=== PATIENT | female | born 1960 | race Caucasian/White ===

== ENCOUNTER 2019-01-25 17:10 | Emergency (ER) | payer MEDICAID, OTHER ==
[~2019-01-25] VITALS: Ht 149.9 cm; Wt 68.0 kg
--- OUTSIDE RECORDS SUMMARY | 2019-01-25 17:17 | XMS REPORT | Continuity of Care Document ---
Author Organization Unknown Address Unknown Allergies Active Description Code Type Severity Reaction Onset Reported/Identified Relationship to Patient Clinical Status Yes CODEINE SULFATE UNKNOWN ITCHING Medications Medication Packaging Start Date Stop Date Route Dosage Sig HYDROCODONE/APAP 5MG/325MG TAB 5 MG/325MG (MARIAA-TAB 5/325) TAB 07/21/2017 07/31/2017 PRN BID ACETAMINOPHEN ORAL TABLET 325mg(Tylenol) MG 07/21/2017 07/28/2017 PRN EVERY 6 Hour IBUPROFEN TAB 400 MG (MOTRIN) MG 07/28/2017 PRN Q6H ALUM/MAG/SIMETH 30CC LIQ (MYLANTA PLUS) cc 07/21/2017 07/31/2017 PRN Q4H POLYETHYLENE GLYCOL POWDER UD PWD (MIRALAX 17GM UNIT DOSE PAKS) gm 07/21/2017 07/31/2017 PRN Q3H CALMOSEPTINE OINT TUBE (RISAMINE OINT) keyla 07/21/2017 07/28/2017 PRN QID LOPERAMIDE CAP 2 MG (IMMODIUM) MG 07/21/2017 07/28/2017 PRN QID Fluarix QUAD 3695-2137 (PF) (flu vac 36mos up(PF)Adult IM syringe ML 07/21/2017 07/21/2017 ONCE&1800 GABAPENTIN CAP 100 MG (NEURONTIN) MG 07/21/2017 08/20/2017 TID&0800,1200,1400,2000 LACTULOSE SYRUP LIQ 20 GM/30CC (CHRONULAC SYRUP) GM 07/21/2017 07/31/2017 BID&0800,2000 MILK OF MAGNESIA LIQ ml 07/21/2017 07/28/2017 PRN BID MELATONIN TAB 3 MG (MELATONIN) MG 07/21/2017 07/27/2017 QHS&2100 ROPINIROLE TAB 1 MG (REQUIP) MG 08/19/2017 QHS&2100 MIRTAZAPINE TAB 15 MG (REMERON) MG 07/21/2017 08/19/2017 QHS&2100 PANTOPRAZOLE TAB 40 MG (PROTONIX) MG 07/22/2017 08/20/2017 Daily&0900 ASCORBIC ACID TAB 500 MG (VITAMIN C) MG 07/22/2017 08/20/2017 Daily&0900 ATENOLOL TAB 50 MG (TENORMIN) MG 08/20/2017 Daily&0900 BISACODYL SUPPOS SUP 10 MG (DULCOLAX SUPPOS) MG 07/22/2017 07/28/2017 PRN Daily ESTRADIOL TAB 2 MG (ESTRACE) MG 08/11/2017 Daily&0900 MULTIVITAMIN CHEWS TAB (POLY VITAMIN CHEWS) tab 07/22/2017 08/20/2017 Daily&0900 DESVENLAFAXINE TAB 50 MG (PRISTIQ) MG 07/22/2017 08/20/2017 Daily&0900 IBUPROFEN TAB 400 MG (MOTRIN) MG 08/21/2017 PRN Q6H CHOLESTYRAMINE PKT 4 GM (QUESTRAN ELIZABETH) GM 07/23/2017 07/30/2017 TID&0730,1130,1630 LOPERAMIDE CAP 2 MG (IMMODIUM) MG 07/24/2017 08/23/2017 PRN Q3H Problems Date Dx Coded Attending Type Code Diagnosis Diagnosed By 07/25/2017 LILY ZAVALA 272.4 OTHER AND UNSPECIFIED HYPERLIPIDEMIA 07/25/2017 LILY ZAVALA 296.34 MAJOR DEPRESSIVE DISORDER, RECURRENT EPISODE, SEVERE DEGREE, SPECIFIED WITH PSYCHOTIC BEHAVIOR 07/25/2017 LILY ZAVALA 530.81 07/25/2017 LILY ZAVALA 564.1 07/25/2017 LILY ZAVALA 592.0 CALCULUS OF KIDNEY 07/25/2017 LILY ZAVALA 737.39 OTHER KYPHOSCOLIOSIS AND SCOLIOSIS 07/25/2017 LILY ZAVALA B00.89 OTHER HERPESVIRAL INFECTION 07/25/2017 LILY ZAVALA E78.5 HYPERLIPIDEMIA, UNSPECIFIED 07/25/2017 LILY ZAVALA F33.3 MAJOR DEPRESSV DISORDER, RECURRENT, SEVERE W PSYCH SYMPTOMS 07/25/2017 LILY ZAVALA K21.9 GASTRO-ESOPHAGEAL REFLUX DISEASE WITHOUT ESOPHAGITIS 07/25/2017 LILY ZAVALA K58.0 IRRITABLE BOWEL SYNDROME WITH DIARRHEA 07/25/2017 LILY ZAVALA M41.9 SCOLIOSIS, UNSPECIFIED 07/25/2017 LILY ZAVALA N20.0 CALCULUS OF KIDNEY 07/25/2017 LILY ZAVALA R45.851 SUICIDAL IDEATIONS 07/25/2017 LILY ZAVALA V62.84 10/02/2017 KANE ALMAGUER MD F33.2 Major depressv disorder, recurrent severe w/o psych features 10/02/2017 KANE ALMAGUER MD G25.81 Restless legs syndrome 10/02/2017 KANE ALMAGUER MD I10 Essential (primary) hypertension 10/02/2017 KANE ALMAGUER MD K21.9 Gastro-esophageal reflux disease without esophagitis Procedures There is no data. Results Test Result Range Vitamin D, 25 OH - 07/21/17 19:47 Vitamin D, 25 OH 27.70 ng/mL 25.00-100.00 VIT B-12 - 07/21/17 19:47 Vitamin B12 274.00 pg/mL 213.00-816.00 Free T4 - 07/21/17 19:47 Free T4 1.04 ng/dL 0.81-1.61 Lipid Panel - 07/22/17 05:05 C/HDL 8.5 3.7-6.7 Cholesterol 288 mg/dL 100-240 HDL 34 mg/dL 30-85 LDL-Calculated 213 mg/dL 0-100 Trig 204 mg/dL 35-160 VLDL 41 mg/dL 0-42 Encounters ACCT No. Visit Date/Time Discharge Status Pt. Type Provider Facility Loc./Unit Complaint [id number] 09/29/2017 23:45:00 10/02/2017 12:00:00 DIS Inpatient KANE ALMAGUER MD [facility] [id number] 11/24/2018 14:40:00 11/24/2018 23:59:59 CLS Outpatient [facility] [id number] 07/21/2017 12:13:00 07/25/2017 14:42:00 DIS Inpatient LUCASLILY [facility] YARON [id number] 07/21/2017 13:02:08 Document Registration [id number] 12/05/2018 20:03:06 ACT Unknown
[2019-01-25] MEDS ORDERED: DULO30CA48 (17:29)
[2019-01-25] MEDS ORDERED: ACYC400T (17:29)
[2019-01-25] MEDS ORDERED: ATEN25TA (17:29)
[2019-01-25] MEDS ORDERED: PANT40TA3 (17:29)
[2019-01-25] MEDS ORDERED: ESTR0.3T (17:29)
[2019-01-25] MEDS ORDERED: DIAZEPAM INJ 10 MG/2 ML (VALIUM) SYR IV ONE (17:30)
[2019-01-25] MEDS ORDERED: KETOROLAC 30 MG/ML VIAL IVP ONE (17:30)
[2019-01-25] MEDS ORDERED: DIAZEPAM 5 MG (VALIUM) TABLET ONE (17:31)
--- NOTE | 2019-01-25 17:35 | ED Back Pain ---
General Chief Complaint: Back Problems Stated Complaint: LOWER BACK PAIN/SHOULDER PAIN Nursing Triage Note: ARRIVED VIA AMB TO ROOM 05 WITH COMPLAINTS OF BILAT LOW BACK PAIN AND A RASH ON HER FOOT. Nursing Sepsis Screen: No Definite Risk History of Present Illness Date Seen by Provider: January 25, 2019 Time Seen by Provider: 17:25 Initial Comments The patient is a 58-year-old female who presents for evaluation of low back pain , right flank pain, and a rash to her right foot. She states that she is seeing her PCP about the right foot rash and has been receiving antibiotics but cannot tell me which antibiotics. As this is not the real reason she came, she states that the back pain as well as really bothering her and what made her come to the emergency department today. She reports a history of kidney stones and states that this feels somewhat similar as the pain in the right flank region is wrapping around the right lateral abdomen. She also some pain in the lower middle of her back. She cannot think of any reason why her back would be hurting. She denies any recent activities which may have exacerbated back pain. She does report a history of chronic back pain which bothers her at times. She denies fevers or chills, recent injections in the back, focal weakness or numbness, radiation down the legs, acute trauma/injury, hematuria, rectal bleeding, constipation, diarrhea, nausea or vomiting, chest pain or shortness of breath. She is alert and oriented 4, calm, and appears to be in no distress. She states that her hbjhtlos-cx-ybb drove her to the emergency department today. Location: Lumbar Spine Timing/Duration: 1-2 Days Severity: Moderate Pain/Injury Location: Back Radiation: Other (no radiation) Method of Injury: Unknown Modifying Factors: Improves With Pain Medication (motrin - not helping much), Improves With Rest (helps a little) Associated Symptoms: muscle spasms; No fever, No weakness, No numbness in legs/ feet, No tingling in legs/feet, No sensory/motor loss, No lower back pain, No loss of bladder control, No loss of bowel control Allergies and Home Medications Allergies Coded Allergies: codeine (Verified Allergy, Severe, RASH, 01/25/19) Patient Home Medication List Home Medication List Reviewed: Yes Review of Systems Constitutional: no symptoms reported EENTM: no symptoms reported Respiratory: no symptoms reported Cardiovascular: no symptoms reported Gastrointestinal: no symptoms reported Genitourinary: no symptoms reported Musculoskeletal: back pain, muscle pain Skin: rash (medial right foot) Psychiatric/Neurological: No Symptoms Reported All Other Systems Reviewed Negative Unless Noted: Yes Past Enmymse-Bgvzzt-Lhcmzp Hx Past Med/Social Hx: Reviewed Nursing Past Med/Soc Hx Patient Social History Alcohol Use: Denies Use Recreational Drug Use: No Smoking Status: Never a Smoker Recent Foreign Travel: No Contact w/Someone Who Travel: No Recent Infectious Disease Expo: No Recent Hopitalizations: No Past Medical History Surgeries: Yes (KIDNEY STONE BLASTING) Bowel Surgery, Gallbladder, Hysterectomy Respiratory: No Cardiac: Yes Hypertension Neurological: No Genitourinary: Yes Kidney Stones Gastrointestinal: Yes Gastroesophageal Reflux Musculoskeletal: No Endocrine: No HEENT: No Cancer: No Psychosocial: Yes Anxiety, Depression Integumentary: Yes Recent Skin Changes Physical Exam Vital Signs Vital Signs - First Documented 01/25/19 17:14 Temp 98.7 Pulse 98 B/P (MAP) 127/74 (91) Pulse Ox 96 O2 Delivery Room Air Capillary Refill : Less Than 3 Seconds Height, Weight, BMI Height: 4'11.00" Weight: 150lbs. oz. 68.775512dx; BMI Method:Stated General Appearance: No Apparent Distress, WD/WN HEENT: PERRL/EOMI, Normal ENT Inspection, Pharynx Normal Neck: Full Range of Motion, Normal Inspection, Non Tender, Supple Cardiovascular: Regular Rate, Rhythm, No Edema, Normal Peripheral Pulses Respiratory: Chest Non Tender, Lungs Clear, Normal Breath Sounds, No Accessory Muscle Use, No Respiratory Distress Gastrointestinal: Normal Bowel Sounds, No Organomegaly, No Pulsatile Mass, Non Tender, Soft Back: No CVA Tenderness (L); CVA Tenderness (R); No Decreased Range of Motion; Muscle Spasm (paraspinal b/l lumbar region), Vertebral Tenderness (L3-5) Extremity: Normal Capillary Refill, Normal Inspection, Normal Range of Motion, Non Tender, No Calf Tenderness Neurologic/Psychiatric: Alert, Oriented x3, No Motor/Sensory Deficits, Normal Mood/Affect Skin: Normal Color, Warm/Dry Progress/Results/Core Measures Results/Orders Lab Results Laboratory Tests Test 01/25/19 17:40 Range/Units White Blood Count 8.9 4.3-11.0 10^3/uL Red Blood Count 4.91 4.35-5.85 10^6/uL Hemoglobin 14.9 11.5-16.0 G/DL Hematocrit 45 35-52 % Mean Corpuscular Volume 92 80-99 FL Mean Corpuscular Hemoglobin 30 25-34 PG Mean Corpuscular Hemoglobin Concent 33 32-36 G/DL Red Cell Distribution Width 12.7 10.0-14.5 % Platelet Count 336 130-400 10^3/uL Mean Platelet Volume 11.7 H 7.4-10.4 FL Neutrophils (%) (Auto) 55 42-75 % Lymphocytes (%) (Auto) 33 12-44 % Monocytes (%) (Auto) 8 0-12 % Eosinophils (%) (Auto) 3 0-10 % Basophils (%) (Auto) 1 0-10 % Neutrophils # (Auto) 4.9 1.8-7.8 X 10^3 Lymphocytes # (Auto) 2.9 1.0-4.0 X 10^3 Monocytes # (Auto) 0.7 0.0-1.0 X 10^3 Eosinophils # (Auto) 0.2 0.0-0.3 10^3/uL Basophils # (Auto) 0.1 0.0-0.1 10^3/uL Urine Color YELLOW Urine Clarity CLEAR Urine pH 6.0 5-9 Urine Specific [place] 1.015 L 1.016-1.022 Urine Protein NEGATIVE NEGATIVE Urine Glucose (UA) NEGATIVE NEGATIVE Urine Ketones NEGATIVE NEGATIVE Urine Nitrite NEGATIVE NEGATIVE Urine Bilirubin NEGATIVE NEGATIVE Urine Urobilinogen 0.2 NORMAL MG/DL Urine Leukocyte Esterase NEGATIVE NEGATIVE Urine RBC (Auto) TRACE H NEGATIVE Urine RBC 0-2 /HPF Urine WBC NONE /HPF Urine Squamous Epithelial Cells 0-2 /HPF Urine Crystals PRESENT H /LPF Urine Calcium Oxalate Crystals FEW H /LPF Urine Bacteria NONE /HPF Urine Casts NONE /LPF Urine Mucus NEGATIVE /LPF Urine Culture Indicated NO My Orders Orders - ELIGIO NOLEN DO Cbc With Automated Diff (01/25/19 17:28) Comprehensive Metabolic Panel (01/25/19 17:28) Ct Abd/Pelvis Wo(Kidney Stone) (01/25/19 17:28) Ct Lumbar Spine Wo (01/25/19 17:28) Ua Culture If Indicated (01/25/19 17:28) Ed Iv/Invasive Line Start (01/25/19 17:28) Ketorolac Injection (Toradol Injection) (01/25/19 17:30) Diazepam Injection (Valium Injection) (01/25/19 17:30) Diazepam Tablet (Valium Tablet) (01/25/19 17:31) Diazepam Tablet (Valium Tablet) (01/25/19 17:45) Morphine Injection (Morphine Injection (01/25/19 18:25) Medications Given in ED Current Medications Medications Dose Ordered Sig/Kim Route Start Time Stop Time Status Last Admin Dose Admin Diazepam 5 mg ONCE ONCE PO 01/25/19 17:45 01/25/19 17:46 DC 01/25/19 17:40 5 MG Ketorolac Tromethamine 30 mg ONCE ONCE IVP 01/25/19 17:30 01/25/19 17:31 DC 01/25/19 17:44 30 MG Vital Signs/I&O 01/25/19 17:14 Temp 98.7 Pulse 98 B/P (MAP) 127/74 (91) Pulse Ox 96 O2 Delivery Room Air Blood Pressure Mean: 91 Progress Progress Note : Progress Note @0620 - Patient seen walking without any difficulty. She's been updated on her lab and imaging results of this time. Eyes the patient to follow up with her primary care physician in the next 1-2 days and to return to the emergency Department immediately. Workup today fails reveal any emergent pathology. No red flags for serious back pain etiology identified at this time. The patient will go home with a prescription for [place] and Flexeril. Diagnostic Imaging Comments [facility] [place], [place] NAME: DUSTY RENAE [facility] REC#: [id number] PT STATUS: REG ER : 1960 PHYSICIAN: ELIGIO NOLEN DO ADMIT DATE: 01/25/19/ER FS Draft Date of Exam:01/25/19 CT ABD/PELVIS WO(KIDNEY STONE) PROCEDURE: CT urinary tract, rule out kidney stone. TECHNIQUE: Multiple contiguous axial images were obtained through the abdomen and pelvis without the use of intravenous contrast. Auto Exposure Controls were utilized during the CT exam to meet ALARA standards for radiation dose reduction. INDICATION: Low abdominal pain which radiates into the back. Unenhanced images of the liver and spleen reveal no focal abnormality. Gallbladder surgically absent. There is no evidence of pancreatic or adrenal gland abnormality. Kidneys are also unremarkable on the noncontrasted images. There is no evidence of renal or ureteric stone. No hydronephrosis is identified. There is mild aortoiliac atherosclerotic calcification. No free fluid is seen within the abdomen or pelvis. There is no evidence of bladder stone. No focal inflammation or organized fluid collection is identified. IMPRESSION: No acute abnormality. In particular, there is no evidence of urinary tract calculus or obstruction. Dictated on workstation # [id number] Dict: 01/25/191802 Trans: 01/25/191808 [facility] [id number] Interpreted by: SAVANNA WOODS MD Electronically signed by: [facility] [place] [place] NAME: DUSTY RENAE [facility] REC#: [id number] PT STATUS: REG ER : 1960 PHYSICIAN: ELIGIO NOLEN DO ADMIT DATE: 01/25/19/ER FS Draft Date of Exam:01/25/19 CT LUMBAR SPINE WO PROCEDURE: CT lumbar spine without contrast. TECHNIQUE: Multiple contiguous axial images were obtained through the lumbar spine without the use of intravenous contrast. Sagittal and coronal reformations were then performed. Auto Exposure Controls were utilized during the CT exam to meet ALARA standards for radiation dose reduction. INDICATION: Lower abdominal and back pain. Lumbar spinal curvature and alignment are unremarkable. Vertebral body heights are maintained. There is mild bulging of L5-S1 disc with associated endplate spurring. There is no abnormal lytic or sclerotic focus. No paraspinous hematoma is identified. IMPRESSION: Mild L5-S1 degenerative disc disease. Otherwise, lumbar spine is unremarkable in appearance. Dictated on workstation # [id number] Dict: 01/25/191808 Trans: 01/25/191814 [facility] [id number] Interpreted by: SAVANNA WODOS MD Electronically signed by: Departure Impression Primary Impression: Low back pain Disposition: 01 HOME, SELF-CARE Condition: Stable Departure-Patient Inst. Decision time for Depature: 18:25 Referrals: HUI KAUR MD (PCP/Family) Primary Care Physician Patient Instructions: Low Back Pain in Adults Add. Discharge Instructions: Take the prescribed medicine as directed. Return to the ER immediately for new or worsening symptoms. Follow-up with your doctor in the next 1-2 days. Scripts Cyclobenzaprine HCl (Cyclobenzaprine HCl) 10 Mg Tablet 10 MG PO TID PRN for BACK PAIN for 3 Days, #10 TAB Prov: ELIGIO NOLEN DO 01/25/19 Hydrocodone/Acetaminophen ([place] 5-325 Tablet) 1 Each Tablet 1 TAB PO Q4-6HR PRN for BACK PAIN MDD 10 TABS for 3 Days, #10 TAB Prov: ELIGIO NOLEN DO 01/25/19 ELIGIO NOLEN DO January 25, 2019 17:35
[2019-01-25] MEDS ORDERED: DIAZEPAM 5 MG (VALIUM) TABLET PO ONE (17:45)
[2019-01-25 17:56] LABS: HEMATOCRIT 45 % (35-52); HEMOGLOBIN 14.9 G/DL (11.5-16.0); MEAN CORPUSCULAR HEMOGLOBIN 30 PG (25-34); MEAN CORPUSCULAR HGB CONC 33 G/DL (32-36); MEAN CORPUSCULAR VOLUME 92 FL (80-99); WHITE BLOOD COUNT 8.9 10^3/uL (4.3-11.0)
[2019-01-25 17:57] LABS: BASOPHILS # (AUTO) 0.1 10^3/uL (0.0-0.1); BASOPHILS % (AUTO) 1 % (0-10); EOSINOPHILS # (AUTO) 0.2 10^3/uL (0.0-0.3); EOSINOPHILS % (AUTO) 3 % (0-10); LYMPHOCYTES # (AUTO) 2.9 X 10^3 (1.0-4.0); LYMPHOCYTES % (AUTO) 33 % (12-44); MEAN PLATELET VOLUME 11.7 FL (7.4-10.4); MONOCYTES # (AUTO) 0.7 X 10^3 (0.0-1.0); MONOCYTES % (AUTO) 8 % (0-12); NEUTROPHILS # (AUTO) 4.9 X 10^3 (1.8-7.8); NEUTROPHILS % (AUTO) 55 % (42-75); PLATELET COUNT 336 10^3/uL (130-400); RED CELL DISTRIBUTION WIDTH 12.7 % (10.0-14.5)
[2019-01-25 18:04] LABS: COLOR,URINE YELLOW
[2019-01-25 18:05] LABS: BILIRUBIN,URINE NEGATIVE (NEGATIVE); CALCIUM OXALATE CRYSTALS,UR FEW /LPF; CLARITY,URINE CLEAR; GLUCOSE, URINE (UA) NEGATIVE (NEGATIVE); KETONES,URINE NEGATIVE (NEGATIVE); LEUKOCYTE ESTERASE ,URINE NEGATIVE (NEGATIVE); NITRITE,URINE NEGATIVE (NEGATIVE); PROTEIN,URINE NEGATIVE (NEGATIVE); RBC,URINE 0-2 /HPF; SQUAMOUS EPITHELIAL CELL,UR 0-2 /HPF; UROBILINOGEN,URINE 0.2 MG/DL (NORMAL)
--- NOTE | 2019-01-25 18:09 | Diagnostic Imaging Report ---
PROCEDURE: CT urinary tract, rule out kidney stone. TECHNIQUE: Multiple contiguous axial images were obtained through the abdomen and pelvis without the use of intravenous contrast. Auto Exposure Controls were utilized during the CT exam to meet ALARA standards for radiation dose reduction. INDICATION: Low abdominal pain which radiates into the back. Unenhanced images of the liver and spleen reveal no focal abnormality. Gallbladder surgically absent. There is no evidence of pancreatic or adrenal gland abnormality. Kidneys are also unremarkable on the noncontrasted images. There is no evidence of renal or ureteric stone. No hydronephrosis is identified. There is mild aortoiliac atherosclerotic calcification. No free fluid is seen within the abdomen or pelvis. There is no evidence of bladder stone. No focal inflammation or organized fluid collection is identified. IMPRESSION: No acute abnormality. In particular, there is no evidence of urinary tract calculus or obstruction. Dictated by: Dictated on workstation # [id number]
--- NOTE | 2019-01-25 18:16 | Diagnostic Imaging Report ---
PROCEDURE: CT lumbar spine without contrast. TECHNIQUE: Multiple contiguous axial images were obtained through the lumbar spine without the use of intravenous contrast. Sagittal and coronal reformations were then performed. Auto Exposure Controls were utilized during the CT exam to meet ALARA standards for radiation dose reduction. INDICATION: Lower abdominal and back pain. Lumbar spinal curvature and alignment are unremarkable. Vertebral body heights are maintained. There is mild bulging of L5-S1 disc with associated endplate spurring. There is no abnormal lytic or sclerotic focus. No paraspinous hematoma is identified. IMPRESSION: Mild L5-S1 degenerative disc disease. Otherwise, lumbar spine is unremarkable in appearance. Dictated by: Dictated on workstation # [id number]
--- NOTE | 2019-01-25 18:20 | NUR ---
PT RESTING WITH EYES CLOSED BUT STATES THE PAIN IS NOT BETTER. DR NOTIFIED WHO SAID HE WANTS TO SEE THE SCANS BEFORE GIVING ANY MORE PAIN MEDS. PT NOTIFIED.
--- NOTE | 2019-01-25 18:24 | NUR ---
DR IN ROOM WITH PT AT THIS TIME.
[2019-01-25] MEDS ORDERED: morphine INJ 10 MG/ML 1ML (SYR OR VIAL) IVP STA (18:25)
[2019-01-25 18:30] LABS: BUN/CREATININE RATIO 19; CARBON DIOXIDE 22 MMOL/L (21-32); CHLORIDE 105 MMOL/L (98-107); GFR ESTIMATED > 60; POTASSIUM 3.8 MMOL/L (3.6-5.0); SODIUM 142 MMOL/L (135-145)
[2019-01-25 18:31] LABS: ALANINE AMINOTRANSFERASE 28 U/L (0-55); ALBUMIN 4.2 GM/DL (3.2-4.5); BILIRUBIN,TOTAL 0.5 MG/DL (0.1-1.0); CALCIUM 8.2 MG/DL (8.5-10.1); GLUCOSE 109 MG/DL (70-105); TOTAL PROTEIN 7.1 GM/DL (6.4-8.2)
[2019-01-25] MEDS ORDERED: CYCL10TA9 PO (18:32)
[2019-01-25] MEDS ORDERED: HYDR-4226 PO (18:32)
[2019-01-25 18:38] VITALS: BP 115/71
[2019-01-25 18:55] LABS: ALKALINE PHOSPHATASE 98 U/L (40-136)
== END 2019-01-25 18:38 | disposition home or self-care (01) ==
LOC: ER FS 17:13 → MERGE 17:13 → ER FS 18:38
DX: M54.5 Low back pain (principal); I10 Essential (primary) hypertension; K21.9 Gastro-esophageal reflux disease without esophagitis; F41.9 Anxiety disorder, unspecified; F32.9 Major depressive disorder, single episode, unspecified; Z87.442 Personal history of urinary calculi; Z88.5 Allergy status to narcotic agent; Z90.710 Acquired absence of both cervix and uterus; Z87.42 Personal history of other diseases of the female genital tract
CPT/HCPCS: 36415; 72131; 74176; 80053; 81000; 85025; 96374; 96375

== ENCOUNTER 2019-03-09 16:30 | Emergency (ER) | payer MEDICAID, OTHER ==
[~2019-03-09] VITALS: Ht 149.9 cm; Wt 68.0 kg
[~2019-03-09 16:30] MED LIST: ACYC400T; ATEN25TA; CYCL10TA9 PO; DULO30CA48; ESTR0.3T; HYDR-4226 PO; PANT40TA3
--- OUTSIDE RECORDS SUMMARY | 2019-03-09 16:35 | XMS REPORT | Continuity of Care Document ---
Author Organization Unknown Address Unknown Allergies Active Description Code Type Severity Reaction Onset Reported/Identified Relationship to Patient Clinical Status Yes codeine [id number] Drug Allergy Severe RASH 01/25/2019 Medications There is no data. Problems Date Dx Coded Attending Type Code Diagnosis Diagnosed By 10/02/2017 KANE ALMAGUER MD F33.2 Major depressv disorder, recurrent severe w/o psych features 10/02/2017 KANE ALMAGUER MD G25.81 Restless legs syndrome 10/02/2017 KANE ALMAGUER MD I10 Essential (primary) hypertension 10/02/2017 KANE ALMAGUER MD K21.9 Gastro-esophageal reflux disease without esophagitis Procedures There is no data. Results Test Result Range Complete blood count (CBC) with automated white blood cell (WBC) differential - 01/25/19 17:40 Blood leukocytes automated count (number/volume) 8.9 10*3/uL 4.3-11.0 Blood erythrocytes automated count (number/volume) 4.91 10*6/uL 4.35-5.85 Venous blood hemoglobin measurement (mass/volume) 14.9 g/dL 11.5-16.0 Blood hematocrit (volume fraction) 45 % 35-52 Automated erythrocyte mean corpuscular volume 92 [foz_us] 80-99 Automated erythrocyte mean corpuscular hemoglobin (mass per erythrocyte) 30 pg 25-34 Automated erythrocyte mean corpuscular hemoglobin concentration measurement (mass/volume) 33 g/dL 32-36 Automated erythrocyte distribution width ratio 12.7 % 10.0- 14.5 Automated blood platelet count (count/volume) 336 10*3/uL 130-400 Automated blood platelet mean volume measurement 11.7 [foz_us] 7.4-10.4 Automated blood neutrophils/100 leukocytes 55 % 42-75 Automated blood lymphocytes/100 leukocytes 33 % 12-44 Blood monocytes/100 leukocytes 8 % 0-12 Automated blood eosinophils/100 leukocytes 3 % 0-10 Automated blood basophils/100 leukocytes 1 % 0-10 Blood neutrophils automated count (number/volume) 4.9 10*3 1.8-7.8 Blood lymphocytes automated count (number/volume) 2.9 10*3 1.0-4.0 Blood monocytes automated count (number/volume) 0.7 10*3 0.0- 1.0 Automated eosinophil count 0.2 10*3/uL 0.0-0.3 Automated blood basophil count (count/volume) 0.1 10*3/uL 0.0-0.1 Complete urinalysis with reflex to culture - 01/25/19 17:40 Urine color determination YELLOW NRG Urine clarity determination CLEAR NRG Urine pH measurement by test strip 6.0 5-9 Specific gravity of urine by test strip 1.015 1.016-1.022 Urine protein assay by test strip, semi-quantitative NEGATIVE NEGATIVE Urine glucose detection by automated test strip NEGATIVE NEGATIVE Erythrocytes detection in urine sediment by light microscopy TRACE NEGATIVE Urine ketones detection by automated test strip NEGATIVE NEGATIVE Urine nitrite detection by test strip NEGATIVE NEGATIVE Urine total bilirubin detection by test strip NEGATIVE NEGATIVE Urine urobilinogen measurement by automated test strip (mass/volume) 0.2 mg/dL NORMAL Urine leukocyte esterase detection by dipstick NEGATIVE NEGATIVE Automated urine sediment erythrocyte count by microscopy (number/high power field) [HPF] NRG Automated urine sediment leukocyte count by microscopy (number/high power field) NONE NRG Bacteria detection in urine sediment by light microscopy NONE NRG Squamous epithelial cells detection in urine sediment by light microscopy 0-2 NRG Crystals detection in urine sediment by light microscopy PRESENT NRG Casts detection in urine sediment by light microscopy NONE NRG Mucus detection in urine sediment by light microscopy NEGATIVE NRG Complete urinalysis with reflex to culture NO NRG Calcium oxalate crystals detection in urine sediment by light microscopy FEW NRG Comprehensive metabolic panel - 01/25/19 17:40 Serum or plasma sodium measurement (moles/volume) 142 mmol/L 135-145 Serum or plasma potassium measurement (moles/volume) 3.8 mmol/L 3.6-5.0 Serum or plasma chloride measurement (moles/volume) 105 mmol/L 98-107 Carbon dioxide 22 mmol/L 21-32 Serum or plasma anion gap determination (moles/volume) 15 mmol/L 5-14 Serum or plasma urea nitrogen measurement (mass/volume) 13 mg/dL 7-18 Serum or plasma creatinine measurement (mass/volume) 0.70 mg/dL 0.60-1.30 Serum or plasma urea nitrogen/creatinine mass ratio 19 NRG Serum or plasma creatinine measurement with calculation of estimated glomerular filtration rate > NRG Serum or plasma glucose measurement (mass/volume) 109 mg/dL 70-105 Serum or plasma calcium measurement (mass/volume) 8.2 mg/dL 8.5-10.1 Serum or plasma total bilirubin measurement (mass/volume) 0.5 mg/dL 0.1-1.0 Serum or plasma alkaline phosphatase measurement (enzymatic activity/volume) 98 U/L 40-136 Serum or plasma aspartate aminotransferase measurement (enzymatic activity/volume) 33 U/L 5-34 Serum or plasma alanine aminotransferase measurement (enzymatic activity/volume) 28 U/L 0-55 Serum or plasma protein measurement (mass/volume) 7.1 g/dL 6.4-8.2 Serum or plasma albumin measurement (mass/volume) 4.2 g/dL 3.2-4.5 CALCIUM CORRECTED 8.0 mg/dL 8.5-10.1 Encounters ACCT No. Visit Date/Time Discharge Status Pt. Type Provider Facility Loc./Unit Complaint [id number] 09/29/2017 23:45:00 10/02/2017 12:00:00 DIS Inpatient ROSINA TAPIA, KANE [facility] [id number] 03/08/2019 14:10:00 ACT Out[facility] [id number] 01/25/2019 17:13:00 01/25/2019 18:38:00 DIS Emergency TAMANNA DEL VALLE DO [facility] ER FS LOWER BACK PAIN/SHOULDER PAIN [id number] 12/05/2018 20:03:06 ACT Unknown
--- NOTE | 2019-03-09 16:48 | ED Headache ---
General Chief Complaint: Head/Cervical Problems Stated Complaint: HEADACHE Source: patient Exam Limitations: no limitations (ASHLEY ANDRE DO) History of Present Illness Date Seen by Provider: Mar 09, 2019 Time Seen by Provider: 16:42 (ASHLEY ANDRE DO) Allergies and Home Medications Allergies Coded Allergies: codeine (Verified Allergy, Severe, RASH, 01/26/19) Home Medications Butalb/Acetaminophen/Caffeine 1 Each Tablet, 1 EACH PO Q6H PRN for HEADACHE Prescribed by: ASHLEY ANDRE on 03/09/191729 Cyclobenzaprine HCl 10 Mg Tablet, 10 MG PO TID PRN for BACK PAIN Prescribed by: ELIGIO NOLEN on 01/25/191831 Gabapentin 300 Mg Capsule, 300 MG PO BID PRN for PAIN-MODERATE TO SEVERE Prescribed by: ROMAIN ZARCO on 03/09/192001 Hydrocodone/Acetaminophen 1 Each Tablet, 1 TAB PO Q4-6HR PRN for BACK PAIN Prescribed by: ELIGIO NOLEN on 01/25/191831 Patient Home Medication List Home Medication List Reviewed: Yes (ROMAIN ALVAREZ MD) Review of Systems Review of Systems Constitutional: no symptoms reported (ROMAIN ALVAREZ MD) Past Jqmdjwh-Qrvtqd-Mfagds Hx Patient Social History Recent Foreign Travel: No Contact w/Someone Who Travel: No Recent Hopitalizations: No (ASHLEY ANDRE DO) Past Medical History Surgeries: Yes (KIDNEY STONE BLASTING) Bowel Surgery, Gallbladder, Hysterectomy Respiratory: No Cardiac: Yes Hypertension Neurological: No Genitourinary: Yes Kidney Stones Gastrointestinal: Yes Gastroesophageal Reflux Musculoskeletal: No Endocrine: No HEENT: No Cancer: No Psychosocial: Yes Anxiety, Depression Integumentary: Yes Recent Skin Changes (ASHLEY ANDRE DO) Physical Exam Vital Signs Vital Signs - First Documented 03/09/19 16:37 Temp 98.2 Pulse 91 Resp 18 B/P (MAP) 163/85 (111) Pulse Ox 97 O2 Delivery Room Air (ROMAIN ALVAREZ MD) Vital Signs Capillary Refill : (ASHLEY ANDRE DO) Height, Weight, BMI Height: 4'11.00" Weight: 150lbs. oz. 68.372424yi; BMI Method:Stated (ASHLEY ANDRE DO) General Appearance: WD/WN, mild distress (ROMAIN ALVAREZ MD) Progress/Results/Core Measures Results/Orders Lab Results Laboratory Tests Test 03/09/19 19:34 Range/Units Urine Color PALE YELLOW Urine Clarity CLEAR Urine pH 6.0 5-9 Urine Specific [place] <=1.005 1.016-1.022 Urine Protein NEGATIVE NEGATIVE Urine Glucose (UA) NEGATIVE NEGATIVE Urine Ketones NEGATIVE NEGATIVE Urine Nitrite NEGATIVE NEGATIVE Urine Bilirubin NEGATIVE NEGATIVE Urine Urobilinogen 0.2 NORMAL MG/DL Urine Leukocyte Esterase NEGATIVE NEGATIVE Urine RBC (Auto) NEGATIVE NEGATIVE Urine RBC NONE /HPF Urine WBC 2-5 /HPF Urine Squamous Epithelial Cells 2-5 /HPF Urine Crystals NONE /LPF Urine Bacteria FEW H /HPF Urine Casts NONE /LPF Urine Mucus NEGATIVE /LPF Urine Culture Indicated YES (ROMAIN ALVAREZ MD) My Orders Orders - ROMAIN ALVAREZ MD Ketorolac Injection (Toradol Injection) (03/09/19 18:45) Ed Iv/Invasive Line Start (03/09/19 18:31) Ns Iv 1000 Ml (Sodium Chloride 0.9%) (03/09/19 18:31) Fentanyl Injection (Sublimaze Injection (03/09/19 19:15) Ua Culture If Indicated (03/09/19 19:08) Morphine Injection (Morphine Injection (03/09/19 19:32) Methylprednisolone Sod Succ (Solu-Medrol (03/09/19 19:45) Urine Culture (03/09/19 19:34) Gabapentin Capsule/Tablet (Neurontin Cap (03/09/19 20:00) (ROMAIN ALVAREZ MD) Medications Given in ED Current Medications Medications Dose Ordered Sig/Kim Route Start Time Stop Time Status Last Admin Dose Admin Butorphanol Tartrate 2 mg ONCE ONCE IM 03/09/19 17:30 03/09/19 17:50 DC 03/09/19 17:50 2 MG Fentanyl Citrate 50 mcg ONCE ONCE IVP 03/09/19 19:15 03/09/19 19:16 DC 03/09/19 19:20 50 MCG Ketorolac Tromethamine 15 mg ONCE ONCE IVP 03/09/19 18:45 03/09/19 18:46 DC 03/09/19 18:55 15 MG Methylprednisolone Sodium Succinate 62.5 mg ONCE ONCE IVP 03/09/19 19:45 03/09/19 19:46 DC 03/09/19 19:39 62.5 MG Orphenadrine Citrate 60 mg ONCE ONCE IM 03/09/19 17:30 03/09/19 17:50 DC 03/09/19 17:50 60 MG Sodium Chloride 1,000 ml @ 0 mls/hr Q0M ONCE IV 03/09/19 18:31 03/09/19 18:32 DC 03/09/19 18:55 0 MLS/HR (ROMAIN ALVAREZ MD) Vital Signs/I&O 03/09/19 03/09/19 16:37 20:10 Temp 98.2 97.1 Pulse 91 66 Resp 18 18 B/P (MAP) 163/85 (111) 153/76 (101) Pulse Ox 97 95 O2 Delivery Room Air Room Air (ROMAIN ALVAREZ MD) Progress Progress Note #1: Time: 18:32 Progress Note I assumed care of this patient from Dr. Andre at shift change. Patient had been treated with Stadol and Norflex injections. She had been prepared for discharge but then reported interval improvement. She reports her pain initially was 10/10, and it is now 8/10 after treatment. She was initially nauseated but denies nausea now. Headache as a throbbing sensation that starts in her shoulders and radiates up to the top of her scalp. She also is noted to be sniffling and complains of some sinus drainage symptoms. She requests something more be done for her headache before discharge. We will try IV hydration and 15 mg of Toradol. Patient was interviewed and examined. She states headache started last night. She has been trying Tylenol and ibuprofen at home as well as baclofen without much improvement. On exam she is alert and oriented and appears in no acute distress. Heart is regular rate and rhythm without murmur. Lungs clear to auscultation bilaterally. Pupils equally round and reactive. Tympanic membrane s are clear. Oropharynx is somewhat dry. Patient ambulates to the restroom without any difficulty. CT report reviewed. There were no acute abnormalities. Progress Note #2: Time: 19:09 Progress Note Patient states she is no better with a pain of 8/10 after 500 mL of IV fluids and Toradol 15 mg IV. I've noted that she has been up to the bathroom twice since 18:00. We will check a UA if she urinates again. Fentanyl was ordered for further treatment of her headache. She states morphine worked well for her in the past. Progress Note #3: Time: 19:56 Progress Note Patient is still complaining of persistent pain on the top of her head even after morphine and Solu-Medrol. We will try gabapentin. UA was relatively unremarkable. Culture is pending. It was not convincing for urinary tract infection so we will await culture before determining if antibiotics are necessary. Progress Note #4: Time: 20:01 Progress Note Gabapentin is not available in this ER at this time. I will provide it as an Rx . (ROMAIN ALVAREZ MD) Diagnostic Imaging Diagonstic Imaging: CT Plain Films/CT/US/NM/MRI: head Comments CT head viewed by me and report reviewed. See report below: NAME: DUSTY RENAE [facility] REC#: [id number] PT STATUS: REG ER : 1960 PHYSICIAN: ASHLEY ANDRE DO ADMIT DATE: 03/09/19/ER FS Signed Date of Exam:03/09/19 CT HEAD WO PROCEDURE: CT head without contrast. TECHNIQUE: Multiple contiguous axial images were obtained through the brain without the use of intravenous contrast. Auto Exposure Controls were utilized during the CT exam to meet ALARA standards for radiation dose reduction. INDICATION: Head and neck pain. FINDINGS: The ventricles and cortical gyral pattern are normal. There is no intracranial hemorrhage. No mass effect. No extra-axial fluid collection. Basal cisterns are clear. CP angles are normal. The mastoid air cells and paranasal sinuses are clear where visualized. No evidence of calvarial fractures or bony lesions. IMPRESSION: Negative CT head. Dictated by: Dictated on workstation # [id number] Dict: 03/09/191718 Trans: 03/09/19 173 [id number] Interpreted by: PRINCESS ANGEL MD Electronically signed by: PRINCESS ANGEL MD 03/09/19 173 (ROMAIN ALVAREZ MD) Departure Impression Primary Impression: Tension type headache Additional Impression: Urinary frequency Disposition: 01 HOME, SELF-CARE Condition: Improved Departure-Patient Inst. Referrals: HUI KAUR MD (PCP) Primary Care Physician Patient Instructions: Tension Headache (DC) Add. Discharge Instructions: All discharge instructions reviewed with patient and/or family. Voiced understanding. WILL NEED TO FOLLOW UP WITH YOUR PCP IF CONTINUED/FURTHER PROBLEMS. MAY REQUIRE EVALUATION/WORK UP THAT IS OUTSIDE THE SCOPE OF THE ER. Scripts Gabapentin (Gabapentin) 300 Mg Capsule 300 MG PO BID PRN for PAIN-MODERATE TO SEVERE, #10 CAP Prov: ROMAIN ALVAREZ MD 03/09/19 Butalb/Acetaminophen/Caffeine (Esgic 50-325-40 mg Tablet) 1 Each Tablet 1 EACH PO Q6H PRN for HEADACHE, #20 TAB 0 Refills Prov: ASHLEY ANDRE DO 03/09/19 ASHLEY ANDRE DO Mar 09, 2019 16:48 ROMAIN ALVAREZ MD Mar 09, 2019 18:37
--- NOTE | 2019-03-09 17:22 | Diagnostic Imaging Report ---
PROCEDURE: CT head without contrast. TECHNIQUE: Multiple contiguous axial images were obtained through the brain without the use of intravenous contrast. Auto Exposure Controls were utilized during the CT exam to meet ALARA standards for radiation dose reduction. INDICATION: Head and neck pain. FINDINGS: The ventricles and cortical gyral pattern are normal. There is no intracranial hemorrhage. No mass effect. No extra-axial fluid collection. Basal cisterns are clear. CP angles are normal. The mastoid air cells and paranasal sinuses are clear where visualized. No evidence of calvarial fractures or bony lesions. IMPRESSION: Negative CT head. Dictated by: Dictated on workstation # [id number]
[2019-03-09] MEDS ORDERED: BUTORPHANOL INJ 2 MG/ML (STADOL) VIAL IM ONE (17:30)
[2019-03-09] MEDS ORDERED: BUTA-249 PO (17:30)
[2019-03-09] MEDS ORDERED: ORPHENADRINE 60 MG/2 ML (NORFLEX) AMP IM ONE (17:30)
[2019-03-09] MEDS ORDERED: BUTORPHANOL INJ 2 MG/ML (STADOL) VIAL ONE (17:37)
[2019-03-09] MEDS ORDERED: ORPHENADRINE 60 MG/2 ML (NORFLEX) AMP ONE (17:38)
[2019-03-09] MEDS ORDERED: NS IV 1000 ML 1,000 ML IV ONE (18:31)
[2019-03-09] MEDS ORDERED: KETOROLAC 30 MG/ML VIAL IVP ONE (18:45)
[2019-03-09] MEDS ORDERED: fentaNYL INJECTION 100 MCG/2 ML AMP IVP ONE (19:15)
[2019-03-09] MEDS ORDERED: morphine INJ 10 MG/ML 1ML (SYR OR VIAL) IVP STA (19:32)
[2019-03-09] MEDS ORDERED: methylPREDNISolone 125 MG (Solu-MEDROL) VIAL IVP ONE (19:45)
[2019-03-09 19:50] LABS: CLARITY,URINE CLEAR; COLOR,URINE PALE YELLOW; GLUCOSE, URINE (UA) NEGATIVE (NEGATIVE); KETONES,URINE NEGATIVE (NEGATIVE); NITRITE,URINE NEGATIVE (NEGATIVE); PROTEIN,URINE NEGATIVE (NEGATIVE)
[2019-03-09 19:51] LABS: BACTERIA,URINE FEW /HPF; BILIRUBIN,URINE NEGATIVE (NEGATIVE); LEUKOCYTE ESTERASE ,URINE NEGATIVE (NEGATIVE); UROBILINOGEN,URINE 0.2 MG/DL (NORMAL)
[2019-03-09] MEDS ORDERED: GABAPENTIN 300 MG (NEURONTIN) CAP PO ONE (20:00)
[2019-03-09] MEDS ORDERED: GABA-488 PO (20:02)
[2019-03-09 20:10] VITALS: BP 153/76
--- NOTE | 2019-03-09 20:10 | NUR ---
Patient left the ER at this time.
== END 2019-03-09 20:10 | disposition home or self-care (01) ==
LOC: EDUNIT# 16:30 → ER FS 16:32
DX: G44.209 Tension-type headache, unspecified, not intractable (principal); R35.0 Frequency of micturition; I10 Essential (primary) hypertension; K21.9 Gastro-esophageal reflux disease without esophagitis; F41.9 Anxiety disorder, unspecified; F32.9 Major depressive disorder, single episode, unspecified; Z87.442 Personal history of urinary calculi; Z88.5 Allergy status to narcotic agent; Z90.710 Acquired absence of both cervix and uterus; Z98.890 Other specified postprocedural states
CPT/HCPCS: 70450; 81000; 87077; 87088

== ENCOUNTER 2019-09-13 10:26 | Emergency (ER) | payer MEDICAID ==
[~2019-09-13] VITALS: Ht 149.8 cm; Wt 67.5 kg
[~2019-09-13 10:26] MED LIST changes: +BUTA-249 PO; -DULO30CA48; +DULO30CA49; +GABA-488 PO
--- NOTE | 2019-09-13 10:39 | ED Headache ---
General Chief Complaint: Head/Cervical Problems Stated Complaint: HEADACHE/EAR PAIN History of Present Illness Date Seen by Provider: Sep 13, 2019 Time Seen by Provider: 10:35 Initial Comments 58-year-old female presents with right ear pain and fullness along with a headache. Patient also complains of low back pain with pain in her left leg. Patient has a history of tension headaches along with low back pain with scattered. These are both similar to her previous presentations. Patient also complains of recurrent ear pain and has seen ENT, multiple physicians with multiple scans are negative workup. Patient comes in today with all these "acting up" patient has no acute or new complaints. Allergies and Home Medications Allergies Coded Allergies: codeine (Verified Allergy, Severe, RASH, 01/26/19) Home Medications Butalb/Acetaminophen/Caffeine 1 Each Tablet, 1 EACH PO Q6H PRN for HEADACHE Prescribed by: ASHLEY TALAVERA on 03/09/191729 Cyclobenzaprine HCl 10 Mg Tablet, 10 MG PO TID PRN for BACK PAIN Prescribed by: ELIGIO NOLEN on 01/25/191831 Gabapentin 300 Mg Capsule, 300 MG PO BID PRN for PAIN-MODERATE TO SEVERE Prescribed by: ROMAIN ZARCO on 03/09/192001 Hydrocodone/Acetaminophen 1 Each Tablet, 1 TAB PO Q4-6HR PRN for BACK PAIN Prescribed by: ELIGIO NOLEN on 01/25/19 183 Patient Home Medication List Home Medication List Reviewed: Yes Review of Systems Review of Systems Constitutional: No chills, No dizziness, No fever Ears, Nose, Mouth, Throat: ear pain (right-sided) Respiratory: No cough, No short of breath Cardiovascular: no symptoms reported Gastrointestinal: no symptoms reported Musculoskeletal: see HPI Skin: no symptoms reported Psychiatric/Neurological: See HPI, Headache Past [place]-Spqwvz-Bclffl Hx Past Med/Social Hx: Reviewed Nursing Past Med/Soc Hx Patient Social History 2nd Hand Smoke Exposure: No Recent Hopitalizations: No Seasonal Allergies Seasonal Allergies: No Past Medical History Surgeries: Yes (LITHOTRIPSY) Bowel Surgery, Gallbladder, Hysterectomy Respiratory: No Cardiac: Yes Hypertension Neurological: No Genitourinary: Yes Kidney Stones Gastrointestinal: Yes Gastroesophageal Reflux Musculoskeletal: No Endocrine: No HEENT: No Cancer: No Psychosocial: Yes Anxiety, Depression Integumentary: Yes Recent Skin Changes Physical Exam Vital Signs Capillary Refill : Height, Weight, BMI Height: 4'11.00" Weight: 150lbs. oz. 68.440096bd; BMI Method:Stated General Appearance: WD/WN, no apparent distress HEENT: PERRL/EOMI, pharynx normal, other (cerebrum impaction of right ear, left ear normal) Neck: full range of motion, supple Cardiovascular: regular rate, rhythm Respiratory: chest non-tender, lungs clear, normal breath sounds Gastrointestinal: non tender, soft Extremities: normal range of motion Psychiatric: alert, oriented x 3 Cra[place] Nerves: normal hearing, normal speech, PERRL Coordination/Gait: normal gait Motor/Sensory: no motor deficit, no sensory deficit Skin: normal color, warm/dry Lymphatic: no adenopathy Progress/Results/Core Measures Results/Orders My Orders Orders - JANNET BERMUDEZ DO Ketorolac Injection (Toradol Injection) (09/13/19 10:46) Norflex 60 Mg Im (09/13/19 10:46) Progress Progress Note : Time: 10:50 Progress Note Patient with no acute changes. Patient with history of tension headache which is similar to previous presentations along with a history of low back pain with scattered I did flush her right ear removing her cerumen impaction with warm water. She tolerated it well. TM after removal is normal with no erythema bulging. Patient will be discharged home and needs a follow-up with her primary care provider tomorrow or next week Departure Impression Primary Impression: Tension type headache Qualified Codes: G44.229 - Chronic tension-type headache, not intractable Additional Impressions: Impacted cerumen of right ear Sciatica of left side Disposition: 01 HOME, SELF-CARE Condition: Stable Departure-Patient Inst. Referrals: HUI KAUR MD (PCP/Family) Primary Care Physician Patient Instructions: Ear Wax Impaction (DC), Sciatica Exercises, Sciatica (DC), Tension Headache (DC) Add. Discharge Instructions: Emergency department focuses on treating and ruling out life-threatening diseases. Whenever possible, a diagnosis is given. However, most patients are given an impression based on their history, physical exam, and workup during your brief time in the ER. Information about probable diagnosis and other educational material has been provided. Please take the time to read and understand this information. It is very important that you follow up with a physician as discussed during the visit today. Failure to adhere to your follow-up instructions may lead to severe disability, injury, or so please make sure to keep your appointments or obtain one as requested. Please keep in mind the emergency department is not designed to your primary care or "family doctor" and nonurgent issues are best evaluated by an outpatient physician All discharge instructions reviewed with patient and/or family. Voiced understanding. JANNET BERMUDEZ DO Sep 13, 2019 10:39
[2019-09-13] MEDS ORDERED: ORPHENADRINE 60 MG/2 ML (NORFLEX) AMP IM STA (10:46)
[2019-09-13] MEDS ORDERED: KETOROLAC 60 MG/2 ML VIAL IM STA (10:46)
[2019-09-13 10:59] VITALS: BP 144/88
== END 2019-09-13 10:59 | disposition home or self-care (01) ==
LOC: EDUNIT# 10:26 → ER FS 10:28
DX: G44.209 Tension-type headache, unspecified, not intractable (principal); H61.21 Impacted cerumen, right ear; M54.42 Lumbago with sciatica, left side; I10 Essential (primary) hypertension; K21.9 Gastro-esophageal reflux disease without esophagitis; F41.9 Anxiety disorder, unspecified; F32.9 Major depressive disorder, single episode, unspecified; Z87.442 Personal history of urinary calculi; Z88.5 Allergy status to narcotic agent; Z90.710 Acquired absence of both cervix and uterus
CPT/HCPCS: 69210; 96372

== ENCOUNTER 2019-09-26 20:00 | Emergency (ER) | payer MEDICAID ==
[~2019-09-26] VITALS: Ht 147 cm; Wt 69.6 kg
[2019-09-26] MEDS ORDERED: ACETAMINOPHEN 500 MG TAB (TYLENOL) PO ONE (20:15)
[2019-09-26] MEDS ORDERED: TETANUS,DIPTH,PERTUSS P/F (BOOSTRIX) 0.5 ML VIAL IM ONE (20:15)
--- NOTE | 2019-09-26 20:18 | ED Fall/Injury ---
General Chief Complaint: Trauma-Non Activation Stated Complaint: FALL Source: patient Exam Limitations: no limitations History of Present Illness Date Seen by Provider: Sep 26, 2019 Time Seen by Provider: 21:10 Initial Comments [place]. She landed on her left side scraping upper left elbow and left knee. She also has pain to her left shoulder. She did nothing for pain. She came immediately here. No head injury or loss of consciousness. Allergies and Home Medications Allergies Coded Allergies: codeine (Verified Allergy, Severe, RASH, 01/26/19) Home Medications Butalb/Acetaminophen/Caffeine 1 Each Tablet, 1 EACH PO Q6H PRN for HEADACHE Prescribed by: ASHLEY TALAVERA on 03/09/191729 Cyclobenzaprine HCl 10 Mg Tablet, 10 MG PO TID PRN for BACK PAIN Prescribed by: ELIGIO NOLEN on 01/25/191831 Gabapentin 300 Mg Capsule, 300 MG PO BID PRN for PAIN-MODERATE TO SEVERE Prescribed by: ROMAIN ZARCO on 03/09/192001 Hydrocodone/Acetaminophen 1 Each Tablet, 1 TAB PO Q4-6HR PRN for BACK PAIN Prescribed by: ELIGIO NOLEN on 01/25/19 183 Patient Home Medication List Home Medication List Reviewed: Yes Review of Systems Review of Systems Constitutional: no symptoms reported Respiratory: no symptoms reported Cardiovascular: no symptoms reported Musculoskeletal: joint pain, muscle pain Skin: see HPI Past Afnuwzq-Amllww-Beobjl Hx Patient Social History 2nd Hand Smoke Exposure: No Recent Foreign Travel: No Contact w/Someone Who Travel: No Recent Hopitalizations: No Seasonal Allergies Seasonal Allergies: No Past Medical History Surgeries: Yes (LITHOTRIPSY) Bowel Surgery, Gallbladder, Hysterectomy Respiratory: No Cardiac: Yes Hypertension Neurological: No Genitourinary: Yes Kidney Stones Gastrointestinal: Yes Gastroesophageal Reflux Musculoskeletal: No Endocrine: No HEENT: No Cancer: No Psychosocial: Yes Anxiety, Depression Integumentary: Yes Recent Skin Changes Blood Disorders: No Physical Exam Vital Signs Vital Signs - First Documented 09/26/19 20:03 Temp 36.0 Pulse 88 Resp 22 B/P (MAP) 165/74 (104) Pulse Ox 97 O2 Delivery Room Air Capillary Refill : Height, Weight, BMI Height: 4'11.00" Weight: 150lbs. oz. 68.322156gl; 30.00 BMI Method:Stated General Appearance: WD/WN, no apparent distress Neck: non-tender, supple Cardiovascular: regular rate, rhythm Respiratory: no respiratory distress Extremities: other (abrasions and bruising over left knee and left elbow. Full range of motion at both joints. She has full range of motion of shoulder pain with motion (abduction) ) Neurologic/Psychiatric: alert, normal mood/affect Skin: normal color, warm/dry [place] Coma Score Best Eye Response: (4) Open Spontaneously Best Verbal Response: (5) Oriented Best Motor Response: (6) Obeys Commands Progress/Results/Core Measures Results/Orders My Orders Orders - RICKY PINO MD Acetaminophen Tablet (Tylenol Tablet) (09/26/19 20:15) Elbow 3 View Left (09/26/19 20:13) Shoulder 3 View Left (09/26/19 20:13) Dipht,Pertuss(Acell),Tet Adult (Boostrix (09/26/19 20:15) Medications Given in ED Current Medications Medications Dose Ordered Sig/Kim Route Start Time Stop Time Status Last Admin Dose Admin Acetaminophen 1,000 mg ONCE ONCE PO 09/26/19 20:15 09/26/19 20:16 DC 09/26/19 20:27 1,000 MG Diphtheria/ Tetanus/Acell Pertussis 0.5 ml ONCE ONCE IM 09/26/19 20:15 09/26/19 20:16 DC 09/26/19 20:26 0.5 ML Vital Signs/I&O 09/26/19 09/26/19 20:03 21:10 Temp 36.0 36.0 Pulse 88 88 Resp 22 22 B/P (MAP) 165/74 (104) 165/74 (104) Pulse Ox 97 97 O2 Delivery Room Air Room Air Departure Impression Primary Impression: Multiple abrasions Additional Impression: Multiple contusions Disposition: HOME, SELF-CARE Condition: Stable Departure-Patient Inst. Decision time for Depature: 20:17 Referrals: HUI KAUR MD (PCP/Family) Primary Care Physician Patient Instructions: Contusion (DC) Add. Discharge Instructions: Keep wounds clean and dry and bandaged. Apply antibiotic ointment once to twice daily. I sure knee and elbow when he got home. Tylenol or ibuprofen for pain. 2 symptoms are not improving in 2 days. All discharge instructions reviewed with patient and/or family. Voiced understanding. RICKY PINO MD Sep 26, 2019 20:18
--- NOTE | 2019-09-26 21:05 | Diagnostic Imaging Report ---
INDICATION: Status post fall, shoulder pain TECHNIQUE: Three views of the left shoulder (it is noted that one of the views is located in the coming elbow study.) CORRELATION STUDY: None FINDINGS: The glenohumeral and acromioclavicular alignment are maintained and unremarkable. There is no evidence for acute fracture or dislocation. The visualized soft tissues are unremarkable. IMPRESSION: 1. Negative for acute bony abnormality about the shoulder. Dictated by: Dictated on workstation # [id number]
[2019-09-26 21:10] VITALS: BP 165/74
--- NOTE | 2019-09-26 21:45 | Diagnostic Imaging Report ---
INDICATION: Status post fall, pain. TECHNIQUE: Three views of the left elbow. CORRELATION STUDY: None. FINDINGS: Alignment is relatively anatomic. There is slight irregularity along the lateral epicondyle. However, definitive fracture is not visualized. Mild osteophyte of the proximal medial aspect of the ulna likely chronic and degenerative. No abnormal joint effusion. IMPRESSION: Negative for acute bony abnormality of the elbow. Dictated by: Dictated on workstation # [id number]
== END 2019-09-26 21:10 | disposition home or self-care (01) ==
LOC: EDUNIT# 20:00 → ER FS 20:03
DX: S80.02XA Contusion of left knee, initial encounter (principal); S50.02XA Contusion of left elbow, initial encounter; I10 Essential (primary) hypertension; K21.9 Gastro-esophageal reflux disease without esophagitis; F41.9 Anxiety disorder, unspecified; F32.9 Major depressive disorder, single episode, unspecified; R40.2142 Coma scale, eyes open, spontaneous, at arrival to emergency department; R40.2252 Coma scale, best verbal response, oriented, at arrival to emergency department; R40.2362 Coma scale, best motor response, obeys commands, at arrival to emergency department; Z87.442 Personal history of urinary calculi; Z88.5 Allergy status to narcotic agent; Z90.710 Acquired absence of both cervix and uterus; W19.XXXA Unspecified fall, initial encounter; Y92.59 Other trade areas as the place of occurrence of the external cause
CPT/HCPCS: 73030; 73080; 90471; 90715

== ENCOUNTER 2019-12-12 13:25 | Emergency (ER) | payer MEDICAID ==
[~2019-12-12] VITALS: Ht 150 cm; Wt 67.0 kg
--- OUTSIDE RECORDS SUMMARY | 2019-12-12 13:31 | XMS REPORT | Continuity of Care Document ---
Author Organization Unknown Address Unknown Phone Unavailable Allergies Active Description Code Type Severity Reaction Onset Reported/Identified Relationship to Patient Clinical Status Yes codeine [id number] Drug Allergy Severe RASH 01/25/2019 Yes codeine [id number] Drug Allergy Severe RASH 01/25/2019 Medications There is no data. Problems Date Dx Coded Attending Type Code Diagnosis Diagnosed By 10/02/2017 KANE ALMAGUER MD F33.2 Major depressv disorder, recurrent severe w/o psych fe atures 10/02/2017 KANE ALMAGUER MD G25.81 Restless legs syndrome 10/02/2017 KANE ALMAGUER MD I10 Essential (primary) hypertension 10/02/2017 KANE ALMAGUER MD K21.9 Gastro-esophageal reflux disease without esophagitis 01/25/2019 Ot F32.9 RAYMOND R DEPRESSIVE DISORDER, SINGLE EPISOD 01/25/2019 Ot F41.9 ANXI ETY DISORDER, UNSPECIFIED 01/25/2019 Ot I10 ESSENT IAL (PRIMARY) HYPERTENSION 01/25/2019 Ot K21.9 JERALD RO-ESOPHAGEAL REFLUX DISEASE WITHOUT 01/25/2019 Ot M54.5 LOW BACK PAIN 01/25/2019 Ot Z87.42 PER IRAM HISTORY OF OTH DISEASES OF THE 01/25/2019 Ot Z87.442 PE RSONAL HISTORY OF URINARY CALCULI 01/25/2019 Ot Z88.5 STEPHEN RGY STATUS TO NARCOTIC AGENT STATUS 01/25/2019 Ot Z90.710 AC QUIRED ABSENCE OF BOTH CERVIX AND UTER 01/28/2019 Ot F32.9 RAYMOND R DEPRESSIVE DISORDER, SINGLE EPISOD 01/28/2019 Ot F41.9 ANXI ETY DISORDER, UNSPECIFIED 01/28/2019 Ot I10 ESSENT IAL (PRIMARY) HYPERTENSION 01/28/2019 Ot K21.9 JERALD RO-ESOPHAGEAL REFLUX DISEASE WITHOUT 01/28/2019 Ot M54.5 LOW BACK PAIN 01/28/2019 Ot Z87.42 PER IRAM HISTORY OF OTH DISEASES OF THE 01/28/2019 Ot Z87.442 PE RSONAL HISTORY OF URINARY CALCULI 01/28/2019 Ot Z88.5 STEPHEN RGY STATUS TO NARCOTIC AGENT STATUS 01/28/2019 Ot Z90.710 AC QUIRED ABSENCE OF BOTH CERVIX AND UTER 03/09/2019 ROMAIN ALVAREZ MD Ot F32.9 MAJOR DEPRESSIVE DISORDER, SINGLE EPISOD 03/09/2019 ROMAIN ALVAREZ MD Ot F41.9 ANXIETY DISORDER, UNSPECIFIED 03/09/2019 ROMAIN ALVAREZ MD Ot G44.209 TENSION-TYPE HEADACHE, UNSPECIFIED, NOT 03/09/2019 ROMAIN ALVAREZ MD Ot I10 ESSENTIAL (PRIMARY) HYPERTENSION 03/09/2019 ROMAIN ALVAREZ MD Ot K21.9 GASTRO-ESOPHAGEAL REFLUX DISEASE WITHOUT 03/09/2019 ROMAIN ALVAREZ MD Ot R35.0 FREQUENCY OF MICTURITION 03/09/2019 ROMAIN ALVAREZ MD Ot R51 HEADACHE 03/09/2019 ROMAIN ALVAREZ MD Ot Z87.442 PERSONAL HISTORY OF URINARY CALCULI 03/09/2019 ROMAIN ALVAREZ MD Ot Z88.5 ALLERGY STATUS TO NARCOTIC AGENT STATUS 03/09/2019 ROMAIN ALVAREZ MD Ot Z90.710 ACQUIRED ABSENCE OF BOTH CERVIX AND UTER 03/09/2019 ROMAIN ALVAREZ MD Ot Z98.890 OTHER SPECIFIED POSTPROCEDURAL STATES 03/11/2019 ROMAIN ALVAREZ MD Ot F32.9 MAJOR DEPRESSIVE DISORDER, SINGLE EPISOD 03/11/2019 ROMAIN ALVAREZ MD Ot F41.9 ANXIETY DISORDER, UNSPECIFIED 03/11/2019 ROMAIN ALVAREZ MD Ot G44.209 TENSION-TYPE HEADACHE, UNSPECIFIED, NOT 03/11/2019 ROMAIN ALVAREZ MD Ot I10 ESSENTIAL (PRIMARY) HYPERTENSION 03/11/2019 ROMAIN ALVAREZ MD Ot K21.9 GASTRO-ESOPHAGEAL REFLUX DISEASE WITHOUT 03/11/2019 ROMAIN ALVAREZ MD Ot R35.0 FREQUENCY OF MICTURITION 03/11/2019 ANTONIO TAPIA, ROMAIN T Ot R51 HEADACHE 03/11/2019 ANTONIO TAPIA, ROMAIN T Ot Z87.442 PERSONAL HISTORY OF URINARY CALCULI 03/11/2019 ROMAIN ALVAREZ MD Ot Z88.5 ALLERGY STATUS TO NARCOTIC AGENT STATUS 03/11/2019 ANTONIO TAPIA, ROMAIN Rosa Ot Z90.710 ACQUIRED ABSENCE OF BOTH CERVIX AND UTER 03/11/2019 ANTONIO TAPIA, ROMAIN T Ot Z98.890 OTHER SPECIFIED POSTPROCEDURAL STATES 09/13/2019 BERMUDEZ DO, JANNET L Ot F32.9 MAJOR DEPRESSIVE DISORDER, SINGLE EPISOD 09/13/2019 BERMUDEZ DO, JANNET L Ot F41.9 ANXIETY DISORDER, UNSPECIFIED 09/13/2019 BERMUDEZ DO, JANNET L Ot G44.2 09 TENSION-TYPE HEADACHE, UNSPECIFIED, NOT 09/13/2019 BERMUDEZ DO, JANNET L Ot H61.2 1 IMPACTED CERUMEN, RIGHT EAR 09/13/2019 BERMUDEZ DO, JANNET L Ot I10 ESSENTIAL (PRIMARY) HYPERTENSION 09/13/2019 BERMUDEZ DO, JANNET L Ot K21.9 GASTRO-ESOPHAGEAL REFLUX DISEASE WITHOUT 09/13/2019 BERMUDEZ DO, JANNET L Ot M54.4 2 LUMBAGO WITH SCIATICA, LEFT SIDE 09/13/2019 BERMUDEZ DO, JANNET L Ot R51 HEADACHE 09/13/2019 BERMUDEZ DO, JANNET L Ot Z87.4 42 PERSONAL HISTORY OF URINARY CALCULI 09/13/2019 BERMUDEZ DO, JANNET L Ot Z88.5 ALLERGY STATUS TO NARCOTIC AGENT STATUS 09/13/2019 BERMUDEZ DO, JANNET L Ot Z90.7 10 ACQUIRED ABSENCE OF BOTH CERVIX AND UTER 09/15/2019 BERMUDEZ DO, JANNET L Ot F32.9 MAJOR DEPRESSIVE DISORDER, SINGLE EPISOD 09/15/2019 BERMUDEZ DO, JANNET L Ot F41.9 ANXIETY DISORDER, UNSPECIFIED 09/15/2019 BERMUDEZ DO, JANNET L Ot G44.2 09 TENSION-TYPE HEADACHE, UNSPECIFIED, NOT 09/15/2019 BERMUDEZ DO, JANNET L Ot H61.2 1 IMPACTED CERUMEN, RIGHT EAR 09/15/2019 BERMUDEZ DO, JANNET L Ot I10 ESSENTIAL (PRIMARY) HYPERTENSION 09/15/2019 BERMUDEZ DO, JANNET L Ot K21.9 GASTRO-ESOPHAGEAL REFLUX DISEASE WITHOUT 09/15/2019 BERMUDEZ DO, JANNET L Ot M54.4 2 LUMBAGO WITH SCIATICA, LEFT SIDE 09/15/2019 BERMUDEZ DO, JANNET L Ot R51 HEADACHE 09/15/2019 BERMUDEZ DO, JANNET L Ot Z87.4 42 PERSONAL HISTORY OF URINARY CALCULI 09/15/2019 BERMUDEZ DO, JANNET L Ot Z88.5 ALLERGY STATUS TO NARCOTIC AGENT STATUS 09/15/2019 BERMUDEZ DO, JANNET L Ot Z90.7 10 ACQUIRED ABSENCE OF BOTH CERVIX AND UTER 10/01/2019 RICKY PINO MD Ot F32. 9 MAJOR DEPRESSIVE DISORDER, SINGLE EPISOD 10/01/2019 RICKY PINO MD, Ot F41. 9 ANXIETY DISORDER, UNSPECIFIED 10/01/2019 RICKY PINO MD, Ot I10 ESSENTIAL (PRIMARY) HYPERTENSION 10/01/2019 RICKY PINO MD, Ot K21. 9 GASTRO-ESOPHAGEAL REFLUX DISEASE WITHOUT 10/01/2019 RICKY PINO MD Ot M25.562 PAIN IN LEFT KNEE 10/01/2019 RICKY PINO MD, Ot R40.2142 COMA SCALE, EYES OPEN, SPONTANEOUS, EMR 10/01/2019 RICKY PINO MD, Ot R40.2252 COMA SCALE, BEST VERBAL RESPONSE, ORIENT 10/01/2019 RICKY PINO MD, Ot R40.2362 COMA SCALE, BEST MOTOR RESPONSE, OBEYS C 10/01/2019 RICKY PINO MD Ot S50.02XA CONTUSION OF LEFT ELBOW, INITIAL ENCOUNT 10/01/2019 RICKY PINO MD, Ot S80.02XA CONTUSION OF LEFT KNEE, INITIAL ENCOUNTE 10/01/2019 RICKY PINO MD Ot W19.XXXA UNSPECIFIED FALL, INITIAL ENCOUNTER 10/01/2019 RICKY PINO MD Ot Y92. [address] 10/01/2019 RICKY PINO MD, Ot Z87.442 PERSONAL HISTORY OF URINARY CALCULI 10/01/2019 RICKY PINO MD, Ot Z88. 5 ALLERGY STATUS TO NARCOTIC AGENT STATUS 10/01/2019 RICKY PINO MD Ot Z90.710 ACQUIRED ABSENCE OF BOTH CERVIX AND UTER Procedures There is no data. Results Test Result Range Complete blood count (CBC) with automate d white blood cell (WBC) differential - 01/25/19 17:40 Blood leukocytes automated count (number/volume) 8.9 10*3/uL 4.3-11.0 Blood erythrocytes automated count (number/volume) 4.91 10*6/uL 4.35-5.85 Venous blood hemoglobin measurement (mass/volume) 14.9 g/dL 11.5-16.0 Blood hematocrit (volume fraction) 45 % 35-52 Automated erythrocyte mean corpuscular volume 92 [ foz_us] 80-99 Automated erythrocyte mean corpuscular h emoglobin (mass per erythrocyte) 30 pg 25-34 Automated erythrocyte mean corpuscular h emoglobin concentration measurement (mass/volume) 33 g/dL 32-36 Automated erythrocyte distribution width ratio 12. 7 % 10.0- 14.5 Automated blood platelet count [...] 10*3 1.0-4.0 Blood monocytes automated count (number/volume) 0. 7 10*3 0.0-1.0 Automated eosinophil count 0.2 10*3/uL 0 .0-0.3 Automated blood basophil count (count/volume) 0.1 10*3/uL 0.0-0.1 Complete urinalysis with reflex to cultu re - 01/25/19 17:40 Urine color determination YELLOW NRG Urine clarity determination CLEAR NR G Urine pH measurement by test strip 6.0 5-9 Specific gravity of urine by test strip 1.015 1.016-1.022 Urine protein assay by test strip, semi-quantitative NEGATIVE NEGATIVE Urine glucose detection by automated test strip NE GATIVE NEGATIVE Erythrocytes detection in urine sediment by light micr oscopy TRACE NEGATIVE Urine ketones detection by automated test strip NE GATIVE NEGATIVE Urine nitrite detection by test strip NEGATIVE NEGATIVE Urine total bilirubin detection by test strip NEGA TIVE NEGATIVE Urine urobilinogen measurement by automated test strip (mass/volume) 0.2 mg/dL NORMAL Urine leukocyte esterase detection by dipstick NEG ATIVE NEGATIVE Automated urine sediment erythrocyte cou nt by microscopy (number/high power field) [HPF] NRG Automated urine sediment leukocyte count by microscopy (number/high power field) NONE NRG Bacteria detection in urine sediment by light microsco py NONE NRG Squamous epithelial cells detection in u rine sediment by light microscopy 0-2 NRG Crystals detection in urine sediment by light microsco py PRESENT NRG Casts detection in urine sediment by light microscopy NONE NRG Mucus detection in urine sediment by light microscopy NEGATIVE NRG Complete urinalysis with reflex to culture NO NRG Calcium oxalate crystals detection in ur ine sediment by light microscopy FEW NRG Comprehensive metabolic panel - 01/25/19 17:40 Serum or plasma sodium measurement (moles/volume) 142 mmol/L 135-145 Serum or plasma potassium measurement (moles/volume) 3.8 mmol/L 3.6-5.0 Serum or plasma chloride measurement (moles/volume) 105 mmol/L 98-107 Carbon dioxide 22 mmol/L 21-32 Serum or plasma anion gap determination (moles/volume) 15 mmol/L 5-14 Serum or plasma urea nitrogen measurement (mass/volume ) 13 mg/dL 7-18 Serum or plasma creatinine measurement (mass/volume) 0.70 mg/dL 0.60-1.30 Serum or plasma urea nitrogen/creatinine mass ratio 19 NRG Serum or plasma creatinine measurement w ith calculation of estimated glomerular filtration rate > NRG Serum or plasma glucose measurement (mass/volume) 109 mg/dL 70-105 Serum or plasma calcium measurement (mass/volume) 8.2 mg/dL 8.5-10.1 Serum or plasma total bilirubin measurement (mass/volu me) 0.5 mg/dL 0.1-1.0 Serum or plasma alkaline phosphatase jeferson surement (enzymatic activity/volume) 98 U/L 40-136 Serum or plasma aspartate aminotransfera se measurement (enzymatic activity/volume) 33 U/L 5-34 Serum or plasma alanine aminotransferase measurement (enzymatic activity/volume) 28 U/L 0-55 Serum or plasma protein measurement (mass/volume) 7.1 g/dL 6.4-8.2 Serum or plasma albumin measurement (mass/volume) 4.2 g/dL 3.2-4.5 CALCIUM CORRECTED 8.0 mg/dL 8.5-10.1 Complete urinalysis with reflex to cultu re - 03/09/19 19:34 Urine color determination PALE YELLOW N RG Urine clarity determination CLEAR NR G Urine pH measurement by test strip 6.0 5-9 Specific gravity of urine by test strip <= 1.016-1.022 Urine protein assay by test strip, semi-quantitative NEGATIVE NEGATIVE Urine glucose detection by automated test strip NE GATIVE NEGATIVE Erythrocytes detection in urine sediment by light micr oscopy NEGATIVE NEGATIVE Urine ketones detection by automated test strip NE GATIVE NEGATIVE Urine nitrite detection by test strip NEGATIVE NEGATIVE Urine total bilirubin detection by test strip NEGA TIVE NEGATIVE Urine urobilinogen measurement by automated test strip (mass/volume) 0.2 mg/dL NORMAL Urine leukocyte esterase detection by dipstick NEG ATIVE NEGATIVE Automated urine sediment erythrocyte cou nt by microscopy (number/high power field) NONE NRG Automated urine sediment leukocyte count by microscopy (number/high power field) [HPF] NRG Bacteria detection in urine sediment by light microsco py FEW NRG Squamous epithelial cells detection in u rine sediment by light microscopy 2-5 NRG Crystals detection in urine sediment by light microsco py NONE NRG Casts detection in urine sediment by light microscopy NONE NRG Mucus detection in urine sediment by light microscopy NEGATIVE NRG Complete urinalysis with reflex to culture YES NRG Bacterial urine culture - 03/09/19 19:34 Bacterial urine culture [id number] NRG COLONY COUNT 20,000 CFU/ML NRG FTX;REPORTABLE SEE COMMENTS NRG CULTURE, URINE - 10/05/19 18:24 CULTURE, URINE, ROUTINE SEE NOTE NRG Encounters ACCT No. Visit Date/Time Discharge Status Pt. Type Provider Facility Loc./Unit Complaint [id number] 09/29/2017 23:45:00 10/02/2017 12:00 :00 [id number] 09/26/2019 20:03:00 020 21:10:00 DIS Outpatient ALVAREZ TAPIA, RICKY [facility] ER FS FALL [id number] 09/13/2019 10:28:00 12/22/2 019 10:59:00 DIS Emergency JANNET BERMUDEZ DO [facility] ER FS HEADACHE/EAR PAIN [id number] 03/09/2019 16:32:00 20:10:00 DIS Emergency ANTONIO TAPIA, ROMAIN Rosa [facility] ER FS HEADACHE [id number] 01/26/2019 11:05:00 Document Registration [id number] 07/18/2019 15:30:00 07/18/2019 23:59:5 9 [facility] Outpatient JANETTE FLOOD APRN [facility] [id number] 10/05/2019 18:00:00 Document Registration [id number] 01/25/2019 17:13:00 18:38:00 DIS Emergency TAMANNA DEL VALLE DO [facility] ER FS LOWER BACK PAIN/SHOULDE R PAIN [id number] 12/05/2018 20:03:06 ACT Unknown
--- NOTE | 2019-12-12 13:36 | ED GU-Female ---
General Chief Complaint: - Urinary Stated Complaint: ABD PAIN History of Present Illness Date Seen by Provider: Dec 12, 2019 Time Seen by Provider: 13:34 Initial Comments This patient is a 59-year-old female presents to the emergency department comp laining of a discomfort in her vaginal area. Patient states that she feels like a grinding feeling. Further history patient has had numerous vaginal deliveries. Has had a history of a prolapsed bladder. Patient states that she did have a procedure many many years ago for the prolapsed bladder but nothing since. Stasis discomforts been going on for about a week. We'll do medical evaluation treatment is needed. Timing/Duration: week Severity/Quality: moderate Location: unknown Radiation: none Activities at Onset: none Sexual [place] History: not active Allergies and Home Medications Allergies Coded Allergies: codeine (Verified Allergy, Severe, RASH, 01/26/19) Home Medications Butalb/Acetaminophen/Caffeine 1 Each Tablet, 1 EACH PO Q6H PRN for HEADACHE Prescribed by: ASHLEY TALAVERA on 03/09/191729 Cyclobenzaprine HCl 10 Mg Tablet, 10 MG PO TID PRN for BACK PAIN Prescribed by: ELIGIO NOLEN on 01/25/191831 Gabapentin 300 Mg Capsule, 300 MG PO BID PRN for PAIN-MODERATE TO SEVERE Prescribed by: ROMAIN ZARCO on 03/09/192001 Hydrocodone/Acetaminophen 1 Each Tablet, 1 TAB PO Q4-6HR PRN for BACK PAIN Prescribed by: ELIGIO NOLEN on 01/25/19 183 Patient Home Medication List Home Medication List Reviewed: Yes Review of Systems Review of Systems Constitutional: No no symptoms reported, No see HPI, No chills, No diaphoresis, No dizziness, No fever, No malaise, No weakness, No weight gain, No weight loss, No other EENTM: No see HPI, No no symptoms reported, No ear discharge, No hearing loss, No ear pain, No blurred vision, No double vision, No eye pain, No tearing, No vision loss, No dental problems, No hoarseness, No mouth pain, No mouth swelling, No epistaxis, No nose congestion, No nose pain, No throat pain, No throat swelling, No other Respiratory: No no symptoms reported, No see HPI, No cough, No dyspnea on exertion, No hemoptysis, No orthopnea, No phlegm, No short of breath, No stridor, No wheezing, No other Cardiovascular: No no symptoms reported, No see HPI, No chest pain, No edema, No Hx of Intervention, No palpitations, No syncope, No vascular heart diseas, No other Gastrointestinal: No RUQ, No LUQ, No RLQ, No LLQ, No no symptoms reported, No see HPI, No abdominal pain, No constipation, No diarrhea, No dysphagia, No hematemesis, No heartburn, No jaundice, No loss of appetite, No melena, No nausea, No vomiting, No other Genitourinary: pain Musculoskeletal: No no symptoms reported, No see HPI, No back pain, No gout, No joint pain, No joint swelling, No muscle pain, No muscle stiffness, No muscle cramps, No muscle twitching, No muscle weakness, No neck pain, No other Skin: No no symptoms reported, No see HPI, No change in color, No change in hair/nails, No dryness, No hx of skin cancer, No lesions, No lumps, No pruritus, No rash, No other Past Lkblght-Tezudk-Rmfuyi Hx Patient Social History Alcohol Use: Denies Use Recreational Drug Use: No 2nd Hand Smoke Exposure: No Recent Hopitalizations: No Seasonal Allergies Seasonal Allergies: No Past Medical History Surgeries: Yes (LITHOTRIPSY) Bowel Surgery, Gallbladder, Hysterectomy Respiratory: No Cardiac: Yes Hypertension Neurological: No Genitourinary: Yes Kidney Stones Gastrointestinal: Yes Gastroesophageal Reflux Musculoskeletal: No Endocrine: No HEENT: No Cancer: No Psychosocial: Yes Anxiety, Depression Integumentary: Yes Recent Skin Changes Blood Disorders: No Physical Exam Vital Signs Vital Signs - First Documented 12/12/19 13:29 Temp 36.5 Pulse 88 Resp 18 B/P (MAP) 124/49 (74) Pulse Ox 97 Capillary Refill : Height, Weight, BMI Height: 4'11.00" Weight: 150lbs. oz. 68.449113eo; 32.00 BMI Method:Stated General Appearance: WD/WN, no apparent distress HEENT: PERRL/EOMI, normal ENT inspection, TMs normal, pharynx normal Neck: non-tender, full range of motion, supple, normal inspection Cardiovascular: normal peripheral pulses, regular rate, rhythm, no edema, no gallop, no JVD, no murmur Respiratory: chest non-tender, lungs clear, normal breath sounds, no respiratory distress, no accessory muscle use, respiratory distress Gastrointestinal: normal bowel sounds, non tender, soft, no organomegaly, no pulsatile mass, abnormal bowel sounds Genital/Rectal: normal genital exam, tenderness (vaginal tenderness and dryness on exam. No obvious signs of any prolapse H and no lesions.) Pelvic: normal external exam Progress/Results/Core Measures Suspected Sepsis SIRS Temperature: Pulse: Respiratory Rate: Blood Pressure / Mean: Results/Orders Lab Results Laboratory Tests Test 12/12/19 13:52 Range/Units Urine Color DARK YELLOW Urine Clarity CLEAR Urine pH 6.0 5-9 Urine Specific [place] 1.025 H 1.016-1.022 Urine Protein NEGATIVE NEGATIVE Urine Glucose (UA) NEGATIVE NEGATIVE Urine Ketones NEGATIVE NEGATIVE Urine Nitrite NEGATIVE NEGATIVE Urine Bilirubin NEGATIVE NEGATIVE Urine Urobilinogen 0.2 < = 1.0 MG/DL Urine Leukocyte Esterase NEGATIVE NEGATIVE Urine RBC (Auto) TRACE H NEGATIVE Urine RBC 0-2 /HPF Urine WBC 0-2 /HPF Urine Squamous Epithelial Cells 25-50 H /HPF Urine Crystals PRESENT H /LPF Urine Calcium Oxalate Crystals MODERATE H /LPF Urine Bacteria LARGE H /HPF Urine Casts NONE /LPF Urine Mucus LARGE H /LPF Urine Culture Indicated NO My Orders Orders - MELISSA VALDEZ MD Urinalysis (12/12/19 13:33) Vital Signs/I&O 12/12/19 13:29 Temp 36.5 Pulse 88 Resp 18 B/P (MAP) 124/49 (74) Pulse Ox 97 Capillary Refill : Less Than 3 Seconds Progress Note : Progress Note Negative evaluation in the emergency department. Patient has tenderness on vaginal exam to the vaginal vyas. No obvious signs of discharge. Patient be discharged home follow up with PCP in 2-3 days or for patient [employer]. Departure Impression Primary Impression: Vaginal pain Disposition: HOME, SELF-CARE Condition: Stable Departure-Patient Inst. Decision time for Depature: 14:37 Referrals: HUI KAUR MD (PCP/Family) Primary Care Physician OLLIE DEVI DO Patient Instructions: Vulvar Pain Add. Discharge Instructions: Encourage by mouth fluids. Ice as needed. Follow up with [employer] as instructed. Take medications as needed for pain as prescribed. All discharge instructions reviewed with patient and/or family. Voiced travisan tan. Scripts Diclofenac Sodium (Diclofenac Sodium) 75 Mg Tablet. 75 MG PO BID for 10 Days, #20 TAB 0 Refills Prov: MELISSA VALDEZ MD 12/12/19 MELISSA VALDEZ MD Dec 12, 2019 13:36
[2019-12-12 14:09] LABS: CLARITY,URINE CLEAR; COLOR,URINE DARK YELLOW
[2019-12-12 14:10] LABS: BILIRUBIN,URINE NEGATIVE (NEGATIVE); GLUCOSE, URINE (UA) NEGATIVE (NEGATIVE); KETONES,URINE NEGATIVE (NEGATIVE); LEUKOCYTE ESTERASE ,URINE NEGATIVE (NEGATIVE); NITRITE,URINE NEGATIVE (NEGATIVE); PROTEIN,URINE NEGATIVE (NEGATIVE)
[2019-12-12 14:14] LABS: BACTERIA,URINE LARGE /HPF; CALCIUM OXALATE CRYSTALS,UR MODERATE /LPF; RBC,URINE 0-2 /HPF; SQUAMOUS EPITHELIAL CELL,UR 25-50 /HPF; WBC,URINE 0-2 /HPF
[2019-12-12] MEDS ORDERED: DICL75TA2 PO (14:40)
[2019-12-12 14:45] VITALS: BP 124/49
== END 2019-12-12 14:45 | disposition home or self-care (01) ==
LOC: EDUNIT# 13:25 → ER FS 13:27
DX: R10.2 Pelvic and perineal pain (principal); I10 Essential (primary) hypertension; Z88.5 Allergy status to narcotic agent
CPT/HCPCS: 81000; 99284

== ENCOUNTER 2020-02-04 21:35 | Emergency (ER) | payer MEDICAID ==
[~2020-02-04] VITALS: Ht 149.8 cm; Wt 69.8 kg
[~2020-02-04 21:35] MED LIST changes: +DICL75TA2 PO
--- OUTSIDE RECORDS SUMMARY | 2020-02-04 21:41 | XMS REPORT | Continuity of Care Document ---
Author Organization Unknown Address Unknown Phone Unavailable Allergies Active Description Code Type Severity Reaction Onset Reported/Identified Relationship to Patient Clinical Status Yes codeine [id number] Drug Allergy Severe RASH 01/25/2019 Yes codeine [id number] Drug Allergy Severe RASH 01/25/2019 Medications There [...] ACQUIRED ABSENCE OF BOTH CERVIX AND UTER 09/26/2019 RICKY PINO MD Ot F32. 9 MAJOR DEPRESSIVE DISORDER, SINGLE EPISOD 09/26/2019 RICKY PINO MD Ot F41. 9 ANXIETY DISORDER, UNSPECIFIED 09/26/2019 RICKY PINO MD Ot I10 ESSENTIAL (PRIMARY) HYPERTENSION 09/26/2019 RICKY PINO MD Ot K21. 9 GASTRO-ESOPHAGEAL REFLUX DISEASE WITHOUT 09/26/2019 RICKY PINO MD Ot M25.562 PAIN IN LEFT KNEE 09/26/2019 RICKY PINO MD, Ot R40.2142 COMA SCALE, EYES OPEN, SPONTANEOUS, EMR 09/26/2019 RICKY PINO MD, Ot R40.2252 COMA SCALE, BEST VERBAL RESPONSE, ORIENT 09/26/2019 RICKY PINO MD, Ot R40.2362 COMA SCALE, BEST MOTOR RESPONSE, OBEYS C 09/26/2019 RICKY PINO MD Ot S50.02XA CONTUSION OF LEFT ELBOW, INITIAL ENCOUNT 09/26/2019 RICKY PINO MD Ot S80.02XA CONTUSION OF LEFT KNEE, INITIAL ENCOUNTE 09/26/2019 RICKY PINO MD Ot W19.XXXA UNSPECIFIED FALL, INITIAL ENCOUNTER 09/26/2019 RICKY PINO MD Ot Y92. [address] 09/26/2019 RICKY PINO MD Ot Z87.442 PERSONAL HISTORY OF URINARY CALCULI 09/26/2019 RICKY PINO MD Ot Z88. 5 ALLERGY STATUS TO NARCOTIC AGENT STATUS 09/26/2019 RICKY PINO MD Ot Z90.710 ACQUIRED ABSENCE OF BOTH CERVIX AND UTER 10/01/2019 RICKY PINO MD Ot F32. 9 MAJOR DEPRESSIVE DISORDER, SINGLE EPISOD 10/01/2019 RICKY PINO MD Ot F41. 9 ANXIETY DISORDER, UNSPECIFIED 10/01/2019 RICKY PINO MD, Ot I10 ESSENTIAL (PRIMARY) HYPERTENSION 10/01/2019 RICKY PINO MD Ot K21. 9 GASTRO-ESOPHAGEAL REFLUX DISEASE WITHOUT 10/01/2019 RICKY PINO MD Ot M25.562 PAIN IN LEFT KNEE 10/01/2019 RICKY PINO MD, Ot R40.2142 COMA SCALE, EYES OPEN, SPONTANEOUS, EMR 10/01/2019 RICKY PINO MD, Ot R40.2252 COMA SCALE, BEST VERBAL RESPONSE, ORIENT 10/01/2019 RICKY PINO MD, Ot R40.2362 COMA SCALE, BEST MOTOR RESPONSE, OBEYS C 10/01/2019 RICKY PINO MD, Ot S50.02XA CONTUSION OF LEFT ELBOW, INITIAL [...] culture - 03/09/19 19:34 Bacterial urine culture [id number] NRG COLONY COUNT 20,000 CFU/ML NRG FTX;REPORTABLE SEE COMMENTS NRG CULTURE, URINE - 10/05/19 18:24 CULTURE, URINE, ROUTINE SEE NOTE NRG Complete urinalysis with reflex to cultu re - 12/12/19 13:52 Urine color determination DARK YELLOW N RG Urine clarity determination CLEAR NR G Urine pH measurement by test strip 6.0 5-9 Specific gravity of urine by test strip 1.025 1.016-1.022 Urine protein assay by test strip, [...] by automated test strip (mass/volume) 0.2 mg/dL < = 1.0 Urine leukocyte esterase detection by dipstick NEG ATIVE NEGATIVE Automated urine sediment erythrocyte cou nt by microscopy (number/high power field) [HPF] NRG Automated urine sediment leukocyte count by microscopy (number/high power field) [HPF] NRG Bacteria detection in urine sediment by light microsco py LARGE NRG Squamous epithelial cells detection in u rine sediment by light microscopy 25-50 NRG Crystals detection in urine sediment by light microsco py PRESENT NRG Casts detection in urine sediment by light microscopy NONE NRG Mucus detection in urine sediment by light microscopy LARGE NRG Complete urinalysis with reflex to culture NO NRG Calcium oxalate crystals detection in ur ine sediment by light microscopy MODERATE NRG Encounters ACCT No. Visit Date/Time Discharge Status Pt. Type Provider Facility Loc./Unit Complaint [id number] 09/29/2017 23:45:00 10/02/2017 12:00 :00 [id number]/12/2019 13:27:00 14:45:00 DIS Emergency COURTNEY TAPIA, MELISSA [place] [facility] ER FS ABD PAIN [id number] 09/26/2019 20:03:00 21:10:00 DIS Emergency ALVAREZ TAPIA, RICKY Gamino [facility] ER FS FALL [id number] 09/13/2019 10:28:00 10:59:00 DIS Emergency JANNET BERMUDEZ DO [facility] ER FS HEADACHE/EAR PAIN [id number] 03/09/2019 16:32:00 20:10:00 DIS Emergency ANTONIO TAPIA, ROMAIN Rosa [facility] ER FS HEADACHE [id number] 01/26/2019 11:05:00 Document Registration [id number] 12/12/2019 13:00:00 12/12/2019 23:59:5 9 [facility] Outpatient JANETTE FLOOD APRN [facility] [id number] 10/05/2019 18:00:00 Document Registration [id number] 01/25/2019 17:13:00 18:38:00 DIS Emergency TAMANNA DEL VALLE DO [facility] ER FS LOWER BACK PAIN/SHOULDE R PAIN [id number] 12/05/2018 20:03:06 ACT Unknown
[2020-02-04] MEDS ORDERED: KETOROLAC 60 MG/2 ML VIAL IM ONE (21:45)
[2020-02-04] MEDS ORDERED: DICL75TA2 PO (21:47)
--- NOTE | 2020-02-04 21:48 | ED Back Pain ---
General Chief Complaint: Back Problems Stated Complaint: FELL,HIP/BACK PAIN Source of Information: Patient, Old Records, RN/MD, RN Notes Reviewed History of Present Illness Date Seen by Provider: February 04, 2020 Time Seen by Provider: 21:35 Initial Comments This patient is a 59-year-old female that presents to the emergency department for low back pain. Patient states about an hour to an hour and a half ago she was eating at [facility] and [facility] slipped in the bathroom landing on her bottom. Patient states that she drove home from there for about an hour down half drive patient states she's become more increased pain and lower back. Patient states no history of back issues the past. We will do medical evaluation treatment is needed. Patient is able stand and walk on her own. Timing/Duration: 1-3 Hours Severity: Moderate Pain/Injury Location: Back Radiation: Buttocks Modifying Factors: Worse With Cold Therapy, Worse With Immobilization, Worse With Jarring; Improves With Movement; Worse With Pain Medication, Worse With Rest, Worse With Other Associated Symptoms: No denies symptoms, No muscle spasms, No fever, No weakness, No numbness in legs/feet, No tingling in legs/feet, No sensory/motor loss, No lower back pain, No loss of bladder control, No loss of bowel control, No other Allergies and Home Medications Allergies Coded Allergies: codeine (Verified Allergy, Severe, RASH, 01/26/19) Home Medications Butalb/Acetaminophen/Caffeine 1 Each Tablet, 1 EACH PO Q6H PRN for HEADACHE Prescribed by: ASHLEY TALAVERA on 03/09/19 173 Cyclobenzaprine HCl 10 Mg Tablet, 10 MG PO TID PRN for BACK PAIN Prescribed by: ELIGIO NOLEN on 01/25/191831 Diclofenac Sodium 75 Mg Tablet., 75 MG PO BID Prescribed by: MELISSA VALDEZ on 12/12/19 1440 Diclofenac Sodium 75 Mg Tablet.dr 75 MG PO BID Prescribed by: MELISSA VALDEZ on 02/04/20 2147 Gabapentin 300 Mg Capsule, 300 MG PO BID PRN for PAIN-MODERATE TO SEVERE Prescribed by: ROMAIN ZARCO on 03/09/192001 Hydrocodone/Acetaminophen 1 Each Tablet, 1 TAB PO Q4-6HR PRN for BACK PAIN [place] [id number] Patient Home Medication List Home Medication List Reviewed: Yes Review of Systems Constitutional: No no symptoms reported; see HPI; No chills, No diaphoresis, No dizziness, No fever, No malaise, No weakness, No weight gain, No weight loss, No other EENTM: No see HPI, No no symptoms reported, No ear discharge, No hearing loss, No ear pain, No blurred vision, No double vision, No eye pain, No tearing, No vision loss, No dental problems, No hoarseness, No mouth pain, No mouth swelling, No epistaxis, No nose congestion, No nose pain, No throat pain, No throat swelling, No other Respiratory: No no symptoms reported, No see HPI, No cough, No dyspnea on exertion, No hemoptysis, No orthopnea, No phlegm, No short of breath, No stridor, No wheezing, No other Cardiovascular: No no symptoms reported, No see HPI, No chest pain, No edema, No Hx of Intervention, No palpitations, No syncope, No vascular heart diseas, No other Gastrointestinal: No RUQ, No LUQ, No RLQ, No LLQ, No no symptoms reported, No see HPI, No abdominal pain, No constipation, No diarrhea, No dysphagia, No hematemesis, No heartburn, No jaundice, No loss of appetite, No melena, No nause a, No vomiting, No other Genitourinary: No no symptoms reported, No see HPI, No decreased output, No discharge, No dysuria, No frequency, No hematuria, No hesitancy, No incontinence, No nocturia, No pain, No other Musculoskeletal: No no symptoms reported, No see HPI, No back pain, No gout, No joint pain, No joint swelling, No muscle pain, No muscle stiffness, No muscle cramps, No muscle twitching, No muscle weakness, No neck pain, No other Skin: No no symptoms reported, No see HPI, No change in color, No change in hair/nails, No dryness, No hx of skin cancer, No lesions, No lumps, No pruritus, No rash, No other Psychiatric/Neurological: Denies No Symptoms Reported; See HPI; Denies Anxiety, Denies Depressed, Denies Emotional Problems, Denies Headache, Denies Numbness, Denies Paresthesia, Denies Pre-Existing Deficit, Denies Seizure, Denies Tingling, Denies Tremors, Denies Weakness, Denies Other All Other Systems Reviewed Negative Unless Noted: Yes Past Rgcpnje-Mvkfdr-Qigwyo Hx Patient Social History 2nd Hand Smoke Exposure: No Recent Foreign Travel: No Contact w/Someone Who Travel: No Recent Hopitalizations: No Seasonal Allergies Seasonal Allergies: No Past Medical History Surgeries: Yes (LITHOTRIPSY) Bowel Surgery, Gallbladder, Hysterectomy Respiratory: No Cardiac: Yes Hypertension Neurological: No Genitourinary: Yes Kidney Stones Gastrointestinal: Yes Gastroesophageal Reflux Musculoskeletal: No Endocrine: No HEENT: No Cancer: No Psychosocial: Yes Anxiety, Depression Integumentary: Yes Recent Skin Changes Blood Disorders: No Physical Exam Vital Signs Vital Signs - First Documented 02/04/20 21:40 Temp 36.3 Pulse 86 Resp 16 B/P (MAP) 136/55 (82) O2 Delivery Room Air Capillary Refill : Height, Weight, BMI Height: 4'11.00" Weight: 150lbs. oz. 68.672566vm; 29.00 BMI Method:Stated General Appearance: No Apparent Distress, WD/WN Neck: Full Range of Motion, Normal Inspection, Non Tender, Supple Cardiovascular: Regular Rate, Rhythm, No Edema, No Gallop, No JVD, No Murmur, Normal Peripheral Pulses Respiratory: Chest Non Tender, Lungs Clear, Normal Breath Sounds, No Accessory Muscle Use, No Respiratory Distress Gastrointestinal: Normal Bowel Sounds, No Organomegaly, No Pulsatile Mass, Non Tender, Soft Back: Normal Inspection, No CVA Tenderness, No Vertebral Tenderness, Decreased Range of Motion, Other Skin: Normal Color, Warm/Dry Progress/Results/Core Measures Results/Orders My Orders Orders - MELISSA VALDEZ MD Lumbar Spine 2 Or 3 View (02/04/20 21:43) Ketorolac Injection (Toradol Injection) (02/04/20 21:45) Medications Given in ED Current Medications Medications Dose Ordered Sig/Kim Route Start Time Stop Time Status Last Admin Dose Admin Ketorolac Tromethamine 60 mg ONCE ONCE IM 02/04/20 21:45 02/04/20 21:46 DC 02/04/20 21:55 60 MG Vital Signs/I&O 02/04/20 21:40 Temp 36.3 Pulse 86 Resp 16 B/P (MAP) 136/55 (82) O2 Delivery Room Air Progress Progress Note : Time: 21:57 Progress Note Negative x-rays for any acute findings. Patient appears to have lumbar strain. Patient is to alternate heat and ice for the next 24-48 hours. Patient used the lumbar stretching exercises as discussed. Continue with Tylenol Motrin as needed for pain. Patient will be given a prescription for diclofenac as needed. Patient is to follow up with PCP in 2-3 days. Diagnostic Imaging Diagonstic Imaging: Xray Plain Films/CT/US/NM/MRI: other (lumbar spine) Comments Negative x-rays Reviewed: Reviewed by Me Departure Impression Primary Impression: Lumbar strain Disposition: HOME, SELF-CARE Condition: Stable Departure-Patient Inst. Decision time for Depature: 21:57 Referrals: HUI KAUR MD (PCP/Family) Primary Care Physician Patient Instructions: Lumbar Muscle Strain (DC) Add. Discharge Instructions: Patient is to alternate heat and ice for the next 24-48 hours. Patient used the lumbar stretching exercises as discussed. Continue with Tylenol Motrin as needed for pain. Patient will be given a prescription for diclofenac as needed. Patient is to follow up with PCP in 2-3 days. All discharge instructions reviewed with patient and/or family. Voiced understanding. Scripts Diclofenac Sodium (Diclofenac Sodium) 75 Mg Tablet. 75 MG PO BID for 10 Days, #20 TAB 0 Refills Prov: MELISSA VALDEZ MD 02/04/20 MELISSA VALDEZ MD February 04, 2020 21:47
[2020-02-04 21:59] VITALS: BP 136/55
--- NOTE | 2020-02-04 22:03 | Diagnostic Imaging Report ---
EXAM: Lumbar spine 2 or 3 view. INDICATION: Fall. Back pain. COMPARISON: CT lumbar spine without contrast 01/25/2019. FINDINGS: There are five lumbar-type vertebral bodies. Normal alignment. Vertebral body heights are preserved. Mild degenerative changes at L5-S1 appear stable. No fracture is identified. The visualized pelvis is intact. Cholecystectomy clips. IMPRESSION: No acute radiographic findings in the lumbar spine. Dictated by: Dictated on workstation # [id number]
== END 2020-02-04 22:00 | disposition home or self-care (01) ==
LOC: EDUNIT# 21:35 → ER FS 21:37
DX: S39.012A Strain of muscle, fascia and tendon of lower back, initial encounter (principal); Z88.5 Allergy status to narcotic agent; W01.0XXA Fall on same level from slipping, tripping and stumbling without subsequent striking against object, initial encounter; Y92.511 Restaurant or cafe as the place of occurrence of the external cause
CPT/HCPCS: 72100; 96372

== ENCOUNTER → 2020-03-11 | Outpatient (CLI) | payer MEDICAID ==
[2020-03-11 11:54] LABS: SODIUM 141 MMOL/L (135-145)
[2020-03-11 11:55] LABS: CARBON DIOXIDE 24 MMOL/L (21-32); CHLORIDE 105 MMOL/L (98-107); POTASSIUM 3.9 MMOL/L (3.6-5.0)
[2020-03-11 11:57] LABS: BUN/CREATININE RATIO 14; GFR ESTIMATED > 60; GLUCOSE 96 MG/DL (70-105)
[2020-03-11 11:58] LABS: ALANINE AMINOTRANSFERASE 20 U/L (0-55); ALBUMIN 4.1 GM/DL (3.2-4.5); ALKALINE PHOSPHATASE 106 U/L (40-136); BILIRUBIN,TOTAL 0.5 MG/DL (0.1-1.0); CALCIUM 8.8 MG/DL (8.5-10.1); TOTAL PROTEIN 6.8 GM/DL (6.4-8.2)
[2020-03-11 14:43] LABS: TRIGLYCERIDES 135 MG/DL (<150); VLDL CHOLESTEROL 27 MG/DL (5-40)
[2020-03-11 14:48] LABS: CHOLESTEROL 289 MG/DL (< 200)
[2020-03-11 14:49] LABS: HDL CHOLESTEROL 59 MG/DL (40-60)
== END ==
LOC: LAB FS 10:31
PROVIDERS: ATTEND Family Medicine
DX: Z01.419 Encounter for gynecological examination (general) (routine) without abnormal findings (principal)
CPT/HCPCS: 36415; 80053; 80061

== ENCOUNTER 2020-08-01 15:54 | Emergency (ER) | payer MEDICAID ==
[~2020-08-01 15:54] MED LIST changes: -PANT40TA3; +PANT40TA52
[2020-08-01 16:00] VITALS: BP 134/81
[2020-08-01] MEDS ORDERED: HYDROcodone/APAP 5 MG/325 MG (LORTAB) TAB PO ONE (16:15)
[2020-08-01] MEDS ORDERED: KETOROLAC 60 MG/2 ML VIAL IM ONE (16:15)
[2020-08-01] MEDS ORDERED: ACHD5005 PO (16:19)
--- NOTE | 2020-08-01 16:19 | ED Back Pain ---
General Chief Complaint: Back Problems Stated Complaint: LOWER BACK/LOWER LT LEG PAIN Nursing Triage Note: Started having back pain 5 days ago that radiates down left leg. Pain is rated at 10/10. Has been taking tylenol and ibuprofen 600 mg. Pain is worse with walking and movement. Has hx of chronic back pain. Nursing Sepsis Screen: No Definite Risk History of Present Illness Date Seen by Provider: Aug 01, 2020 Time Seen by Provider: 16:14 Initial Comments Patient presenting to the emergency department for evaluation of low back pain that radiates down the back of her left leg that has been going on for the past 3 days has been difficult for her to sleep due to the pain and she says it hurts worse with movements and palpation. She denies any weakness numbness tingling saddle anesthesia bowel or bladder incontinence. She says she has had sciatica before in the past and Toradol shot to help but her primary care provider is out of the office for the next 3 days and wanted to come to the emergency department for assistance. She is in no obvious distress with normal vital signs. Allergies and Home Medications Allergies Coded Allergies: codeine (Verified Allergy, Severe, RASH, 01/26/19) Home Medications Butalb/Acetaminophen/Caffeine 1 Each Tablet, 1 EACH PO Q6H PRN for HEADACHE Prescribed by: ASHLEY TALAVERA on 03/09/19 173 Cyclobenzaprine HCl 10 Mg Tablet, 10 MG PO TID PRN for BACK PAIN Prescribed by: ELIGIO NOLEN on 01/25/191831 Diclofenac Sodium 75 Mg Tablet.dr, 75 MG PO BID Prescribed by: MELISSA VALDEZ on 12/12/19 1440 Diclofenac Sodium 75 Mg Tablet.dr, 75 MG PO BID Prescribed by: MELISSA VALDEZ on 02/04/20 2147 Gabapentin 300 Mg Capsule, 300 MG PO BID PRN for PAIN-MODERATE TO SEVERE Prescribed by: ROMAIN ZARCO on 03/09/192001 Hydrocodone/Acetaminophen 1 Each Tablet, 1 TAB PO Q4-6HR PRN for BACK PAIN Prescribed by: ELIGIO NOLEN on 01/25/191831 Patient Home Medication List Home Medication List Reviewed: Yes Review of Systems Constitutional: no symptoms reported Respiratory: no symptoms reported Cardiovascular: no symptoms reported Gastrointestinal: no symptoms reported Genitourinary: no symptoms reported Musculoskeletal: back pain Psychiatric/Neurological: No Symptoms Reported Past Xkaomjx-Fvtpnh-Hafozn Hx Patient Social History Alcohol Use: Denies Use Recreational Drug Use: No Smoking Status: Never a Smoker 2nd Hand Smoke Exposure: No Recent Foreign Travel: No Contact w/Someone Who Travel: No Recent Infectious Disease Expo: No Recent Hopitalizations: No Seasonal Allergies Seasonal Allergies: No Past Medical History Surgeries: Yes (LITHOTRIPSY) Bowel Surgery, Gallbladder, Hysterectomy Respiratory: No Cardiac: Yes Hypertension Neurological: No Genitourinary: Yes Kidney Stones Gastrointestinal: Yes Gastroesophageal Reflux Musculoskeletal: No Endocrine: No HEENT: No Cancer: No Psychosocial: Yes Anxiety, Depression Integumentary: No Recent Skin Changes Blood Disorders: No Physical Exam Vital Signs Vital Signs - First Documented 08/01/20 16:00 Temp 35.9 Pulse 80 Resp 16 B/P (MAP) 134/81 (98) Pulse Ox 96 Capillary Refill : Less Than 3 Seconds Height, Weight, BMI Height: 4'11.00" Weight: 150lbs. oz. 68.245083bb; 31.00 BMI Method:Stated General Appearance: No Apparent Distress, WD/WN Cardiovascular: Regular Rate, Rhythm, Normal Peripheral Pulses Respiratory: No Respiratory Distress Back: Other (left lumbar paraspinal tenderness to palpation with no midline pain) Extremity: Normal Capillary Refill Neurologic/Psychiatric: Alert, Oriented x3, No Motor/Sensory Deficits Skin: Warm/Dry Progress/Results/Core Measures Results/Orders My Orders Orders - JANE ANDREWS DO Ketorolac Injection (Toradol Injection) (08/01/20 16:15) Hydrocodone/Apap 5/325 Tablet (Lortab 5 (08/01/20 16:15) Dexamethasone Injection (Decadron Injec (08/01/20 16:15) Vital Signs/I&O 08/01/20 16:00 Temp 35.9 Pulse 80 Resp 16 B/P (MAP) 134/81 (98) Pulse Ox 96 Blood Pressure Mean: 98 Progress Progress Note : Progress Note Patient with sciatica which is not a new diagnosis for her but no red flag signs or symptoms necessitating emergent MRI. Will treat her symptoms here with Toradol Decadron and Vershire and told her to continue taking ibuprofen home and will prescribe her Vershire for breakthrough pain and told to follow with her primary care provider later this week and come back to the ED sooner with any new worsening pain neurologic changes other general concerns. Patient aware and agreeable with plan and verbalized understanding of the above instructions. Departure Impression Primary Impression: Lumbar radiculopathy Disposition: 01 HOME, SELF-CARE Condition: Stable Departure-Patient Inst. Referrals: HUI KAUR MD (PCP/Family) Primary Care Physician Patient Instructions: Radiculopathy (DC) Add. Discharge Instructions: Keep taking ibuprofen every 6 hours. The norco is for breakthrough pain. All discharge instructions reviewed with patient and/or family. Voiced understanding. Scripts Hydrocodone/Acetaminophen (Hydrocodone-Acetamin 5-325 mg) 1 Each Tablet 1 EACH PO Q6H PRN for PAIN-SEVERE (8-10) for 2 Days, #8 TAB Prov: JANE ANDREWS DO 08/01/20 JANE ANDREWS DO Aug 01, 2020 16:19
== END 2020-08-01 16:30 | disposition home or self-care (01) ==
LOC: ER FS 15:54 → EDUNIT# 15:54 → ER FS 16:30
DX: M54.16 Radiculopathy, lumbar region (principal); F41.9 Anxiety disorder, unspecified; F32.9 Major depressive disorder, single episode, unspecified; Z88.5 Allergy status to narcotic agent
CPT/HCPCS: 99284

== ENCOUNTER 2020-09-21 09:20 | Emergency (ER) | payer MEDICAID ==
[~2020-09-21] VITALS: Ht 149 cm; Wt 75.0 kg
[~2020-09-21 09:20] MED LIST changes: +ACHD5005 PO
[2020-09-21 09:32] VITALS: BP 123/67
[2020-09-21] MEDS ORDERED: CYCL10TA9 PO (09:35)
[2020-09-21] MEDS ORDERED: PRD50T PO (09:35)
--- NOTE | 2020-09-21 09:36 | ED Back Pain ---
General Chief Complaint: Back Problems Stated Complaint: BACK/LT LEG PAIN History of Present Illness Date Seen by Provider: Sep 21, 2020 Time Seen by Provider: 09:34 Initial Comments 59-year-old female presents with low back pain and radiation of pain down the back of her left leg without weakness or incoordination. Denies any injury, however does admit to history of sciatica and similar pain in the past. Has been unable to see her PCP, so she came to the ER today. Taken [id number] ibuprofen without any relief. Denies any fever or chills, abdominal or flank pain. Denies any dysuria or hematuria. Allergies and Home Medications Allergies Coded Allergies: codeine (Verified Allergy, Severe, RASH, 01/26/19) Home Medications Butalb/Acetaminophen/Caffeine 1 Each Tablet, 1 EACH PO Q6H PRN for HEADACHE Prescribed by: ASHLEY TALAVERA on 03/09/19 1730 Cyclobenzaprine HCl 10 Mg Tablet, 10 MG PO TID PRN for BACK PAIN Prescribed by: ELIGIO NOLEN on 01/25/19 183 Cyclobenzaprine HCl 10 Mg Tablet, 10 MG PO Q8H PRN for SPASMS Prescribed by: KATHE RED on 09/21/20 0935 Diclofenac Sodium 75 Mg Tablet., 75 MG PO BID Prescribed by: MELISSA VALDEZ on 12/12/19 1440 Diclofenac Sodium 75 Mg Tablet., 75 MG PO BID Prescribed by: MELISSA VALDEZ on 02/04/20 2147 Gabapentin 300 Mg Capsule, 300 MG PO BID PRN for PAIN-MODERATE TO SEVERE Prescribed by: ROMAIN ZARCO on 03/09/192001 Hydrocodone/Acetaminophen 1 Each Tablet, 1 TAB PO Q4-6HR PRN for BACK PAIN Prescribed by: ELIGIO NOLEN on 01/25/19 183 Hydrocodone/Acetaminophen 1 Each Tablet, 1 EACH PO Q6H PRN for PAIN-SEVERE (8- 10) Prescribed by: JANE ANDREWS on 08/01/20 161 Prednisone 50 Mg Tab, 50 MG PO DAILY Prescribed by: KATHE RED on 09/21/20 0935 Patient Home Medication List Home Medication List Reviewed: Yes Review of Systems Constitutional: No dizziness, No fever, No malaise, No weakness Respiratory: No no symptoms reported, No see HPI, No cough, No dyspnea on exertion, No hemoptysis, No orthopnea, No phlegm, No short of breath, No stridor, No wheezing, No other Cardiovascular: No no symptoms reported, No see HPI, No chest pain, No edema, No Hx of Intervention, No palpitations, No syncope, No vascular heart diseas, No other Gastrointestinal: No RUQ, No LUQ, No RLQ, No LLQ, No no symptoms reported, No see HPI, No abdominal pain, No constipation, No diarrhea, No dysphagia, No hematemesis, No heartburn, No jaundice, No loss of appetite, No melena, No nausea, No vomiting, No other Genitourinary: No no symptoms reported, No see HPI, No decreased output, No discharge, No dysuria, No frequency, No hematuria, No hesitancy, No incontinence, No nocturia, No pain, No other Musculoskeletal: see HPI, back pain; No joint swelling, No muscle pain, No muscle stiffness, No muscle cramps, No muscle weakness, No neck pain Skin: No change in color, No rash Psychiatric/Neurological: Denies Headache, Denies Numbness, Denies Paresthesia, Denies Pre-Existing Deficit, Denies Seizure, Denies Tingling, Denies Tremors, Denies Weakness Past Vkijmhu-Drherh-Mfbhdb Hx Past Med/Social Hx: Reviewed Nursing Past Med/Soc Hx Patient Social History 2nd Hand Smoke Exposure: No Recent Foreign Travel: No Contact w/Someone Who Travel: No Recent Hopitalizations: No Seasonal Allergies Seasonal Allergies: No Past Medical History Surgeries: Yes (LITHOTRIPSY) Bowel Surgery, Gallbladder, Hysterectomy Respiratory: No Cardiac: Yes Hypertension Neurological: No Genitourinary: Yes Kidney Stones Gastrointestinal: Yes Gastroesophageal Reflux Musculoskeletal: No Endocrine: No HEENT: No Cancer: No Psychosocial: Yes Anxiety, Depression Integumentary: No Recent Skin Changes Blood Disorders: No Physical Exam Vital Signs Capillary Refill : Height, Weight, BMI Height: 4'11.00" Weight: 150lbs. oz. 68.470707ev; 31.00 BMI Method:Stated General Appearance: No Apparent Distress, WD/WN Back: Normal Inspection, No CVA Tenderness, No Vertebral Tenderness; No Vertebral Tenderness; Other (generalized low back pain without localized tenderness, NVI) Extremity: Normal Capillary Refill, Normal Inspection, Normal Range of Motion, Non Tender, No Pedal Edema; No Pedal Edema, No Slow Capillary Refill, No Swelling Neurologic/Psychiatric: Alert, No Motor/Sensory Deficits, Normal Mood/Affect Progress/Results/Core Measures Results/Orders My Orders Orders - KATHE RED DO Ketorolac Injection (Toradol Injection) (09/21/20 09:45) Departure Impression Primary Impression: Back pain Qualified Codes: M54.42 - Lumbago with sciatica, left side Disposition: 01 HOME, SELF-CARE Condition: Stable Departure-Patient Inst. Decision time for Depature: 09:35 Referrals: HUI KAUR MD (PCP/Family) Primary Care Physician Patient Instructions: Low Back Pain (DC) Add. Discharge Instructions: Follow up with Dr Kaur in 1 week, sooner if worse. All discharge instructions reviewed with patient and/or family. Voiced under standing. Scripts Cyclobenzaprine HCl (Cyclobenzaprine HCl) 10 Mg Tablet 10 MG PO Q8H PRN for SPASMS, #15 TAB 0 Refills Prov: KATHE RED DO 09/21/20 Prednisone (Prednisone) 50 Mg Tab 50 MG PO DAILY, #7 TAB Prov: KATHE RED DO 09/21/20 KATHE RED DO Sep 21, 2020 09:36
[2020-09-21] MEDS ORDERED: KETOROLAC 60 MG/2 ML VIAL IM ONE (09:45)
== END 2020-09-21 09:45 | disposition home or self-care (01) ==
LOC: EDUNIT# 09:20 → ER FS 09:22
DX: M54.42 Lumbago with sciatica, left side (principal); Z88.5 Allergy status to narcotic agent; Z79.52 Long term (current) use of systemic steroids
CPT/HCPCS: 99284

== ENCOUNTER → 2020-12-13 | Outpatient (CLI) | payer MEDICAID ==
[~2020-12-13] MED LIST changes: +PRD50T PO
--- NOTE | 2020-12-13 14:21 | Diagnostic Imaging Report ---
INDICATION: PERSISTENT COUGH COMPARISON: None. FINDINGS: Frontal and lateral views of the chest demonstrate normal heart size and pulmonary vascularity. The lungs are clear. There are no signs of infiltrate, pleural effusions or pneumothoraces. The visualized osseous structures show no acute abnormalities. IMPRESSION: 1. No acute process. No signs of infiltrates, effusions or pneumothoraces. Dictated by: Dictated on workstation # [id number]
== END ==
LOC: RAD FS 13:48
PROVIDERS: ATTEND Nurse Practitioner Family
DX: R05 Cough (principal)
CPT/HCPCS: 71046

== ENCOUNTER 2021-03-01 22:04 | Emergency (ER) | payer MEDICAID ==
[~2021-03-01] VITALS: Ht 149.9 cm; Wt 65.8 kg
[~2021-03-01 22:04] MED LIST changes: -ACYC400T; +ACYC400T21
[2021-03-01 23:03] LABS: CLARITY,URINE CLEAR; COLOR,URINE YELLOW
[2021-03-01 23:04] LABS: BILIRUBIN,URINE 1+ (NEGATIVE); GLUCOSE, URINE (UA) NEGATIVE (NEGATIVE); KETONES,URINE TRACE (NEGATIVE); LEUKOCYTE ESTERASE ,URINE NEGATIVE (NEGATIVE); NITRITE,URINE NEGATIVE (NEGATIVE); PROTEIN,URINE NEGATIVE (NEGATIVE)
[2021-03-01 23:05] LABS: BACTERIA,URINE RARE /HPF; CALCIUM OXALATE CRYSTALS,UR FEW /LPF; WBC,URINE RARE /HPF
[2021-03-01 23:06] LABS: HYALINE CASTS, URINE RARE /LPF
[2021-03-01] MEDS ORDERED: ORPHENADRINE 60 MG/2 ML (NORFLEX) AMP (ED ONLY) IVP STA (23:07)
[2021-03-01] MEDS ORDERED: NS IV 1000 ML 1,000 ML IV STA (23:07)
[2021-03-01] MEDS ORDERED: morphine INJ 10 MG/ML 1ML (SYR OR VIAL) IVP STA ×2 (23:07→23:51)
[2021-03-01 23:28] LABS: BASOPHILS % (AUTO) 0 % (0-10); EOSINOPHILS % (AUTO) 0 % (0-10); HEMATOCRIT 41 % (35-52); LYMPHOCYTES # (AUTO) 3.5 X 10^3 (1.0-4.0); LYMPHOCYTES % (AUTO) 24 % (12-44); MEAN CORPUSCULAR HEMOGLOBIN 31 PG (25-34); MEAN CORPUSCULAR HGB CONC 34 G/DL (32-36); MEAN CORPUSCULAR VOLUME 91 FL (80-99); MEAN PLATELET VOLUME 11.8 FL (7.4-10.4); MONOCYTES # (AUTO) 0.8 X 10^3 (0.0-1.0); MONOCYTES % (AUTO) 6 % (0-12); NEUTROPHILS % (AUTO) 69 % (42-75); PLATELET COUNT 360 10^3/uL (130-400); WHITE BLOOD COUNT 14.5 10^3/uL (4.3-11.0)
[2021-03-01 23:29] LABS: BASOPHILS # (AUTO) 0.1 10^3/uL (0.0-0.1)
[2021-03-01] MEDS ORDERED: NS 100 ML (IVPB) BAG IV ONE (23:30)
[2021-03-01] MEDS ORDERED: IOHEXOL 350 MG/ML 100 ML (OMNIPAQUE 350) VIAL IV ONE (23:30)
[2021-03-01] MEDS ORDERED: HOLD METFORMIN - RECEIVED CONTRAST 20 ML VIAL IV SCH (23:30)
[2021-03-01 23:44] LABS: ATYPICAL LYMPHOCYTES 1 %; LYMPHOCYTES % (MANUAL) 19 %; MONOCYTES % (MANUAL) 4 %; NEUTROPHILS % (MANUAL) 76 %; PLATELET ESTIMATE ADEQUATE; RBC MORPH NORMAL
[2021-03-01 23:45] LABS: PROTHROMBIN TIME PATIENT 12.5 SEC (12.2-14.7)
[2021-03-01 23:46] LABS: CARBON DIOXIDE 23 MMOL/L (21-32); CHLORIDE 105 MMOL/L (98-107); INR 0.9 (0.8-1.4); POTASSIUM 3.6 MMOL/L (3.6-5.0); SODIUM 142 MMOL/L (135-145)
[2021-03-01 23:47] LABS: ALANINE AMINOTRANSFERASE 16 U/L (0-55); ALBUMIN 4.1 GM/DL (3.2-4.5); ALKALINE PHOSPHATASE 106 U/L (40-136); BILIRUBIN,TOTAL 0.2 MG/DL (0.1-1.0); BUN/CREATININE RATIO 20; CALCIUM 9.2 MG/DL (8.5-10.1); CREATININE SERUM 0.85 MG/DL (0.60-1.30); GFR ESTIMATED > 60; GLUCOSE 101 MG/DL (70-105); TOTAL PROTEIN 6.9 GM/DL (6.4-8.2)
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
[2021-03-02] MEDS ORDERED: fentaNYL INJ 100 MCG/2 ML AMP IVP STA ×2 (00:20→01:15)
[2021-03-02 00:37] LABS: AMPHETAMINE SCREEN, URINE NEGATIVE (NEGATIVE); BARBITURATE SCREEN URINE NEGATIVE (NEGATIVE); BENZODIAZEPINES SCREEN URINE NEGATIVE (NEGATIVE); CANNABINOID SCREEN, URINE NEGATIVE (NEGATIVE); COCAINE SCREEN URINE POSITIVE (NEGATIVE); METHAMPHETAMINE SCREEN URINE S NEGATIVE (NEGATIVE); OPIATE SCREEN URINE POSITIVE (NEGATIVE); TRICYCLIC ANTIDEPRESSANTS SCRE NEGATIVE (NEGATIVE)
[2021-03-02 00:38] LABS: METHADONE STAT NEGATIVE (NEGATIVE); OXYCODONE STAT NEGATIVE (NEGATIVE); PROPOXYPHENE STAT NEGATIVE (NEGATIVE)
[2021-03-02] MEDS ORDERED: KETOROLAC 30 MG/ML VIAL IVP STA (00:56)
[2021-03-02] MEDS ORDERED: diphenhydrAMINE 50 MG/ML INJ (BENADRYL) IVP STA (01:15)
[2021-03-02] MEDS ORDERED: DIPH-1 PO (01:23)
[2021-03-02] MEDS ORDERED: BACL10TA PO (01:23)
[2021-03-02] MEDS ORDERED: HYDR-3820 PO (01:23)
[2021-03-02 01:39] VITALS: BP 151/79
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
== END 2021-03-02 01:39 | disposition home or self-care (01) ==
LOC: EDUNIT# 22:04 → ER FS 22:05
DX: S13.9XXA Sprain of joints and ligaments of unspecified parts of neck, initial encounter (principal); S20.213A Contusion of bilateral front wall of thorax, initial encounter; R10.12 Left upper quadrant pain; R51.9 Headache, unspecified; E86.0 Dehydration; I10 Essential (primary) hypertension; Z88.5 Allergy status to narcotic agent; Z79.52 Long term (current) use of systemic steroids; V89.2XXA Person injured in unspecified motor-vehicle accident, traffic, initial encounter
CPT/HCPCS: 36415; 70450; 71260; 72125; 74177; 80053; 80306; 81000; 85007; 85027; 85610; 85730; 96361; 96374; 96375; 96376

== ENCOUNTER → 2021-04-19 | Outpatient (CLI) | payer MEDICAID ==
[~2021-04-19] MED LIST changes: +BACL10TA PO; +DIPH-1 PO; +HYDR-3820 PO
== END ==
LOC: RT 13:00
PROVIDERS: ATTEND Nurse Practitioner Family
DX: R05 Cough (principal)
CPT/HCPCS: 94010; 94726; 94729

== ENCOUNTER → 2021-06-07 | Outpatient (CLI) | payer MEDICAID ==
--- NOTE | 2021-06-07 11:56 | Diagnostic Imaging Report ---
PROCEDURE: CT chest without contrast. TECHNIQUE: Multiple contiguous axial images were obtained through the chest without the use of intravenous contrast. Auto Exposure Controls were utilized during the CT exam to meet ALARA standards for radiation dose reduction. INDICATION: History of cough for several months. CORRELATION: CT chest 03/02/2021. FINDINGS: There is no significant mediastinal, axillary, and/or hilar lymphadenopathy. Very small low-density nodule in the right thyroid lobe. The heart size is normal. Scattered mild coronary artery calcification. Thoracic aorta normal in contour. Small hiatal hernia. The lung graham are clear of infiltrate. Very small area of nodularity in the lateral right upper lobe, generally stable. Additional small 3 mm nodule in the medial right lower lobe, not definitively visualized on prior. Cholecystectomy changes in the upper abdomen. No obstructing right renal stone. Leftward curvature of the thoracic spine with advanced degenerative changes present. IMPRESSION: 1. Negative for acute abnormality of the chest. 2. Small area of nodularity in the right upper and lower lobes. 3. In a low risk patient for potential lung cancer, no additional followup is recommended. In a high-risk patient, CT imaging in approximately 1 year would be recommended. Dictated by: Dictated on workstation # [id number]
== END ==
LOC: RAD FS 10:35
PROVIDERS: ATTEND Nurse Practitioner Family
DX: R91.8 Other nonspecific abnormal finding of lung field (principal); R06.02 Shortness of breath
CPT/HCPCS: 71250

== ENCOUNTER 2021-06-26 11:15 | Emergency (ER) | payer MEDICAID ==
[~2021-06-26] VITALS: Ht 160 cm; Wt 85.0 kg
--- NOTE | 2021-06-26 11:50 | ED Back Pain ---
General Chief Complaint: Back Problems Stated Complaint: LWR BACK/LT LEG PAIN Nursing Triage Note: LEFT LOWER BACK PAIN THAT RADIATES DOWN HER LEFT LEG. REPORTS SOME DIZZINESS AFTER SHE GOT TO ER WAITING ROOM AND WAS ABLE TO AMBULATE UNTIL SHE GOT TO WAITING ROOM. History of Present Illness Date Seen by Provider: Jun 26, 2021 Time Seen by Provider: 11:20 Initial Comments 60yoF with PMH of HTN and sciatica coming in due to back pain since Saturday radiating down left leg. Worsening to today. Can get up and walk but with worsening of pain. Tried ibuprofen and warm water which have not helped. Otherwise denying any headache, chest pain, SOB, urinary or fecal incontinence, fever, weakness, numbness, new trauma, or any other concerns. Allergies and Home Medications Allergies Coded Allergies: codeine (Verified Allergy, Severe, RASH, 01/26/19) Patient Home Medication List Home Medication List Reviewed: Yes Acyclovir (Acyclovir) 400 Mg Tablet, (Reported) Entered as Reported by: MANDO RENTERIA on 01/25/19 1729 Atenolol (Atenolol) 25 Mg Tablet, (Reported) Entered as Reported by: MANDO RENTERIA on 01/25/19 1729 Baclofen (Baclofen) 10 Mg Tablet, 10 MG PO TID PRN for MUSCLE SPASMS Prescribed by: RACHEL COLES on 03/02/21 0123 Butalb/Acetaminophen/Caffeine (Esgic 50-325-40 mg Tablet) 1 Each Tablet, 1 EACH PO Q6H PRN for HEADACHE Prescribed by: ASHLEY TALAVERA on 03/09/19 1730 Cyclobenzaprine HCl (Cyclobenzaprine HCl) 10 Mg Tablet, 10 MG PO TID PRN for BACK PAIN Prescribed by: ELIGIO NOLEN on 01/25/19 1832 Cyclobenzaprine HCl (Cyclobenzaprine HCl) 10 Mg Tablet, 10 MG PO Q8H PRN for SPASMS Prescribed by: KATHE RED on 09/21/20 0935 Cyclobenzaprine HCl (Cyclobenzaprine HCl) 10 Mg Tablet, 10 MG PO Q8H PRN for SPASMS Prescribed by: WADE MANCILLA on 06/26/21 1228 Diclofenac Sodium (Diclofenac Sodium) 75 Mg Tablet.dr, 75 MG PO BID Prescribed by: MELISSA VALDEZ on 12/12/19 1440 Diclofenac Sodium (Diclofenac Sodium) 75 Mg Tablet.dr, 75 MG PO BID Prescribed by: MELISSA VALDEZ on 02/04/20 2147 Diphenhydramine HCl (Allergy) 25 Mg Capsule, 25 MG PO Q6H PRN for ITCHING Prescribed by: RACHEL COLES on 03/02/21 0123 Duloxetine HCl (Duloxetine HCl) 30 Mg Capsule., (Reported) Entered as Reported by: MANDO RENTERIA on 01/25/19 172 Estrogens, Conjugated (Premarin) 0.3 Mg Tablet, (Reported) Entered as Reported by: MANDO RENTERIA on 01/25/19 172 Gabapentin (Gabapentin) 300 Mg Capsule, 300 MG PO BID PRN for PAIN-MODERATE TO SEVERE Prescribed by: ROMAIN ZARCO on 03/09/192001 Gabapentin (Gabapentin) 100 Mg Capsule, 100 MG PO Q8H Prescribed by: WADE MANCILLA on 06/26/21 1228 Hydrocodone/Acetaminophen (Hydrocodone/Acetaminophen 5 MG/325 MG TAB) 1 Each Tablet, 1 TAB PO Q4-6HR PRN for BACK PAIN Prescribed by: ELIGIO NOLEN on 01/25/19 1832 Hydrocodone/Acetaminophen (Hydrocodone-Acetamin 5-325 mg) 1 Each Tablet, 1 EACH PO Q6H PRN for PAIN-SEVERE (8-10) Prescribed by: JANE ANDREWS on 08/01/20 1619 Hydrocodone/Acetaminophen (Hydrocodone-Acetamin 10-325 mg) 1 Each Tablet, 1 EACH PO Q6H PRN for PAIN-SEVERE (8-10) Prescribed by: RACHEL COLES on 03/02/21 0124 Lidocaine (Lidocaine 5% Patch) 1 Each Adh..patch, 1 EACH TP Q12H PRN for Neuropathic pain Prescribed by: WADE MANCILLA on 06/26/21 1228 Pantoprazole Sodium (Pantoprazole Sodium) 40 Mg Tablet., (Reported) Entered as Reported by: MANDO RENTERIA on 01/25/19 172 Prednisone (Prednisone) 50 Mg Tab, 50 MG PO DAILY Prescribed by: KATHE RED on 09/21/20 0935 Review of Systems Constitutional: No chills, No fever EENTM: No blurred vision Respiratory: No cough, No short of breath Cardiovascular: No chest pain Gastrointestinal: No abdominal pain Genitourinary: No dysuria, No frequency Musculoskeletal: back pain Skin: no symptoms reported Psychiatric/Neurological: No Symptoms Reported All Other Systems Reviewed Negative Unless Noted: Yes Past Ynnchzw-Sbkxiw-Ldfwsl Hx Patient Social History Tobacco Use?: No Use of E-Cig and/or Vaping dev: No Substance use?: No Alcohol Use?: No Pt feels they are or have been: No Seasonal Allergies Seasonal Allergies: No Past Medical History Surgeries: Yes (LITHOTRIPSY) Bowel Surgery, Gallbladder, Hysterectomy Respiratory: No Cardiac: Yes Hypertension Neurological: No Genitourinary: Yes Kidney Stones Gastrointestinal: Yes Gastroesophageal Reflux Musculoskeletal: No Endocrine: No HEENT: No Cancer: No Psychosocial: Yes Anxiety, Depression Integumentary: No Recent Skin Changes Blood Disorders: No Physical Exam Vital Signs Vital Signs - First Documented 06/26/21 11:20 Temp 36.8 Pulse 84 Resp 18 B/P (MAP) 155/88 (110) Pulse Ox 98 O2 Delivery Room Air Capillary Refill : Less Than 3 Seconds Height, Weight, BMI Height: 4'11.00" Weight: 150lbs. oz. 68.519449qv; 33.00 BMI Method:Stated General Appearance: No Apparent Distress, WD/WN HEENT: PERRL/EOMI, Normal ENT Inspection, Pharynx Normal Neck: Full Range of Motion, Normal Inspection, Non Tender, Supple Cardiovascular: Regular Rate, Rhythm, No Edema, Normal Peripheral Pulses Respiratory: Chest Non Tender, Lungs Clear, Normal Breath Sounds, No Accessory Muscle Use, No Respiratory Distress Gastrointestinal: Normal Bowel Sounds, Non Tender, Soft; No Distended, No Guarding Back: Normal Inspection, No CVA Tenderness, No Vertebral Tenderness, Other (paravertebral tenderness on the left, positive straight leg test on the left, negative reverse straight leg) Extremity: Normal Capillary Refill, Normal Inspection, Normal Range of Motion, Non Tender, No Calf Tenderness, No Pedal Edema, Other (Pain with logroll on the left) Neurologic/Psychiatric: Alert, No Motor/Sensory Deficits, Normal Mood/Affect Skin: Normal Color, Warm/Dry Lymphatic: No Adenopathy Progress/Results/Core Measures Results/Orders Lab Results Laboratory Tests Test 06/26/21 11:22 Range/Units Urine Color YELLOW Urine Clarity CLEAR Urine pH 7.0 5-9 Urine Specific [place] 1.015 L 1.016-1.022 Urine Protein NEGATIVE NEGATIVE Urine Glucose (UA) NEGATIVE NEGATIVE Urine Ketones NEGATIVE NEGATIVE Urine Nitrite NEGATIVE NEGATIVE Urine Bilirubin NEGATIVE NEGATIVE Urine Urobilinogen 0.2 < = 1.0 MG/DL Urine Leukocyte Esterase NEGATIVE NEGATIVE Urine RBC (Auto) NEGATIVE NEGATIVE Urine RBC NONE /HPF Urine WBC RARE /HPF Urine Squamous Epithelial Cells 2-5 /HPF Urine Crystals NONE /LPF Urine Bacteria NEGATIVE /HPF Urine Casts NONE /LPF Urine Mucus NEGATIVE /LPF Urine Culture Indicated NO My Orders Orders - WADE MANCILLA MD Pelvis With Left Hip 2-3 View (06/26/21 11:58) Ua Culture If Indicated (06/26/21 11:58) Cyclobenzaprine Tablet (Flexeril Tablet) (06/26/21 11:58) Ketorolac Injection (Toradol Injection) (06/26/21 12:00) Gabapentin Capsule/Tablet (Neurontin Cap (06/26/21 12:00) Medications Given in ED Current Medications Medications Dose Ordered Sig/Kim Route Start Time Stop Time Status Last Admin Dose Admin Gabapentin 300 mg ONCE ONCE PO 06/26/21 12:00 06/26/21 12:01 DC 06/26/21 12:08 300 MG Ketorolac Tromethamine 15 mg ONCE ONCE IM 06/26/21 12:00 06/26/21 12:01 DC 06/26/21 12:07 15 MG Vital Signs/I&O 06/26/21 06/26/21 11:20 12:31 Temp 36.8 36.8 Pulse 84 80 Resp 18 18 B/P (MAP) 155/88 (110) 142/72 Pulse Ox 98 98 O2 Delivery Room Air Room Air Blood Pressure Mean: 110 Progress Progress Note : Progress Note 60-year-old female with above history coming in due to low back pain radiating down left leg all consistent with sciatica. ABCs were intact and vitals were stable on presentation. Does not have any red flags for low back pain including no fever, no trauma, no history of cancer, no new weakness or numbness. No midline spinal tenderness. Does have some pain with logroll so we will get an x-ray of her left hip to assess for arthritis as this could be attributing to her pain. Given the positive straight leg test, this is pretty sensitive for sciatica. We will treat her symptomatically. She says she has had some increasing urinary frequency and she is unsure if she has a UTI. Urine also ordered. X-ray my interpretation with only mild degenerative changes in her hip and spine. Urinalysis negative for infection. Clinically this is more fitting with sciatica. Will recommend outpatient symptomatic treatment and follow-up with orthopedics. She was then discharged home in stable condition with strict return precautions Diagnostic Imaging Diagonstic Imaging: Xray Plain Films/CT/US/NM/MRI: pelvis, hip Comments [facility] [place]. [place], [place] NAME: DUSTY RENAE [facility] REC#: [id number] PT STATUS: REG ER : 1960 PHYSICIAN: WADE MANCILLA MD ADMIT DATE: 06/26/21/ER FS Draft Date of Exam:06/26/21 PELVIS WITH LEFT HIP 2-3 VIEW Indication: Left hip pain. Comparison: None Findings: Single view of the pelvis and 2 views of the left hip demonstrate minimal degenerative joint disease bilaterally. There is no fracture or dislocation or osseous lesion. Impression: Minimal degenerative joint disease. Dictated on workstation # [id number] Dict: 06/26/21 1209 Trans: 06/26/21 1211 CV [id number] Interpreted by: JONATAN MARQUEZ Electronically signed by: Departure Impression Primary Impression: Sciatica Qualified Codes: M54.32 - Sciatica, left side Disposition: 01 HOME, SELF-CARE Condition: Stable Departure-Patient Inst. Decision time for Depature: 12:24 Referrals: BRIANA PERERA APRN (PCP) Primary Care Physician LEA PLATA MD Patient Instructions: Sciatica Add. Discharge Instructions: You were seen in the emergency department for back pain that is going down your leg. Your x-ray does have some mild arthritis. Your urine is negative for infection. I recommend 400 mg of ibuprofen every 6 hours as well as 1000 mg of Tylenol every 6-8 hours. I gave you a prescription for a nerve medicine for the next couple weeks as well as a muscle relaxer mostly to help you sleep at night. I recommend a lidocaine patch over the area where you hurt the most on your back. I wrote a prescription for the lidocaine patch but you can also buy it over the counter if you wanted. The best thing you can do is get up and move around and stretch. Follow-up with orthopedics as they may be interested in doing some type of injections if this becomes persistent or does not go away. You can call any ortho doctor you want or follow up with ours Dr. Plata (number in this packet). Come back if you have any fever, true weakness we cannot move an extremity or true numbness where you can feel extremity, you begin urinating on yourself without control, or pooping on yourself without control. All discharge instructions reviewed with patient and/or family. Voiced understanding. Scripts Lidocaine (Lidocaine 5% Patch) 1 Each Adh..patch 1 EACH TP Q12H PRN for Neuropathic pain MDD 2 for 7 Days, #14 PATCH 2 patches max for 12 hours, then 12 hours patch-free period. Prov: WADE MANCILLA MD 06/26/21 Cyclobenzaprine HCl (Cyclobenzaprine HCl) 10 Mg Tablet 10 MG PO Q8H PRN for SPASMS for 7 Days, #21 TAB 0 Refills Prov: WADE MANCILLA MD 06/26/21 Gabapentin (Gabapentin) 100 Mg Capsule 100 MG PO Q8H for Neuropathic pain for 14 Days, #42 CAP Prov: WADE MANCILLA MD 06/26/21 WADE MANCILLA MD Jun 26, 2021 11:50
[2021-06-26] MEDS ORDERED: CYCLOBENZAPRINE 10 MG (FLEXERIL) TAB PO STA (11:58)
[2021-06-26] MEDS ORDERED: KETOROLAC 30 MG/ML VIAL IM ONE (12:00)
[2021-06-26] MEDS ORDERED: GABAPENTIN 100 MG (NEURONTIN) CAP PO ONE (12:00)
--- NOTE | 2021-06-26 12:11 | Diagnostic Imaging Report ---
Indication: Left hip pain. Comparison: None Findings: Single view of the pelvis and 2 views of the left hip demonstrate minimal degenerative joint disease bilaterally. There is no fracture or dislocation or osseous lesion. Impression: Minimal degenerative joint disease. Dictated by: Dictated on workstation # [id number]
[2021-06-26 12:12] LABS: BILIRUBIN,URINE NEGATIVE (NEGATIVE); CLARITY,URINE CLEAR; COLOR,URINE YELLOW; GLUCOSE, URINE (UA) NEGATIVE (NEGATIVE); KETONES,URINE NEGATIVE (NEGATIVE); LEUKOCYTE ESTERASE ,URINE NEGATIVE (NEGATIVE); NITRITE,URINE NEGATIVE (NEGATIVE); PROTEIN,URINE NEGATIVE (NEGATIVE)
[2021-06-26 12:17] LABS: WBC,URINE RARE /HPF
[2021-06-26 12:18] LABS: BACTERIA,URINE NEGATIVE /HPF
[2021-06-26] MEDS ORDERED: CYCL10TA9 PO (12:28)
[2021-06-26] MEDS ORDERED: LIDO700A45 TP (12:28)
[2021-06-26] MEDS ORDERED: GABA-486 PO (12:28)
[2021-06-26 12:31] VITALS: BP 142/72
== END 2021-06-26 12:32 | disposition home or self-care (01) ==
LOC: EDUNIT# 11:15 → ER FS 11:16
DX: M54.42 Lumbago with sciatica, left side (principal); I10 Essential (primary) hypertension; K21.9 Gastro-esophageal reflux disease without esophagitis; F41.9 Anxiety disorder, unspecified; F32.9 Major depressive disorder, single episode, unspecified; Z79.899 Other long term (current) drug therapy
CPT/HCPCS: 73502; 81000

== ENCOUNTER → 2021-09-13 | Outpatient (CLI) | payer MEDICAID ==
[~2021-09-13] MED LIST changes: +CYCL10TA25 PO; -CYCL10TA9 PO; +GABA-486 PO; +LIDO700A45 TP
--- NOTE | 2021-09-13 16:14 | Diagnostic Imaging Report ---
INDICATION: Back pain, scoliosis. COMPARISON: CT chest of 06/07/2021. FINDINGS: Three views of the thoracic column demonstrate stable appearing upper and mid thoracic scoliosis with degenerative disc disease. There is no traumatic malalignment or fracture. No osseous lesion. IMPRESSION: Stable scoliosis with degenerative disc disease. Dictated by: Dictated on workstation # [id number]
--- NOTE | 2021-09-13 17:05 | Diagnostic Imaging Report ---
EXAMINATION: Lumbosacral spine 2 or 3 views HISTORY: BACK PAIN LUMBAR COMPARISON: 02/04/2020 FINDINGS: There is normal height and alignment of the vertebral bodies with no fractures or subluxations appreciated. There is intervertebral disc space narrowing at L5-S1 with remaining intervertebral disc spaces preserved. Atherosclerotic disease is noted with clips in the right upper quadrant. There is postoperative change in the pelvis. IMPRESSION: 1. Mild degenerative changes at L5-S1 with otherwise negative spine. Dictated by: Dictated on workstation # [id number]
== END ==
LOC: RAD FS 13:12
PROVIDERS: ATTEND Nurse Practitioner
DX: M47.817 Spondylosis without myelopathy or radiculopathy, lumbosacral region (principal); M51.34 Other intervertebral disc degeneration, thoracic region; M41.84 Other forms of scoliosis, thoracic region
CPT/HCPCS: 72072; 72100

== ENCOUNTER → 2021-12-06 | Outpatient (CLI) | payer MEDICAID ==
--- NOTE | 2021-12-06 17:04 | Diagnostic Imaging Report ---
EXAMINATION: Lumbosacral spine 2 or 3 views. HISTORY: Lumbar back pain with radiculopathy affecting left lower extremity. COMPARISON: 09/13/2021. FINDINGS: There is minimal grade 1 anterolisthesis at L5-S1. This is new since the previous examination. Remaining alignment is preserved. Vertebral body heights maintained. Minimal intervertebral disc space narrowing is seen at L5-S1. Remaining levels unremarkable. There is no acute soft tissue abnormality with clips in the right upper quadrant. IMPRESSION: Degenerative findings at L5-S1. Remaining spine unremarkable. Dictated by: Dictated on workstation # [id number]
--- NOTE | 2021-12-06 17:33 | Diagnostic Imaging Report ---
INDICATION: Back pain. TIME OF EXAM: 4:48 PM. EXAMINATION: AP and lateral views of the thoracic spine were obtained. FINDINGS: There is normal thoracic kyphotic curvature. There is a right convexity thoracic scoliotic curvature. Vertebral body heights appear to be well maintained. No acute compression fracture is seen. There is generalized spondylosis with disc space narrowing and marginal spurring. Paraspinous alignment is intact. IMPRESSION: Thoracic spondylosis and scoliosis. No acute bony abnormality is detected. Dictated by: Dictated on workstation # [id number]
--- NOTE | 2021-12-06 17:34 | Diagnostic Imaging Report ---
INDICATION: Neck pain radiating to both shoulders. TIME OF EXAM: 4:46 PM. EXAMINATION: AP, lateral and odontoid views of the cervical spine were obtained. Curvature of the cervical spine is normal. There is minimal anterolisthesis of C3 on C4 and C4 on C5. There is degenerative disc disease at the C5-C6 and C6-C7 levels with disc space narrowing and marginal spurring. There is multilevel facet arthropathy. Prevertebral tissues are normal. Odontoid appears intact. No fractures are seen. IMPRESSION: Cervical spondylosis. No acute bony abnormality is detected. Dictated by: Dictated on workstation # [id number]
== END ==
LOC: RAD FS 16:36
PROVIDERS: ATTEND Nurse Practitioner Family
DX: M47.812 Spondylosis without myelopathy or radiculopathy, cervical region (principal); M47.814 Spondylosis without myelopathy or radiculopathy, thoracic region; M47.817 Spondylosis without myelopathy or radiculopathy, lumbosacral region; M41.84 Other forms of scoliosis, thoracic region
CPT/HCPCS: 72040; 72070; 72100

== ENCOUNTER 2022-02-20 18:05 | Emergency (ER) | payer MEDICAID ==
[~2022-02-20] VITALS: Ht 152 cm; Wt 70.0 kg
[~2022-02-20 18:05] MED LIST changes: -DIPH-1 PO; +[UNRECOGNIZED DRUG - CODE] PO
[2022-02-20 18:10] VITALS: BP 138/61
[2022-02-20 18:18] LABS: BILIRUBIN,URINE NEGATIVE (NEGATIVE); CLARITY,URINE CLOUDY; COLOR,URINE YELLOW; GLUCOSE, URINE (UA) NEGATIVE (NEGATIVE); KETONES,URINE NEGATIVE (NEGATIVE); LEUKOCYTE ESTERASE ,URINE TRACE (NEGATIVE); NITRITE,URINE NEGATIVE (NEGATIVE); PROTEIN,URINE NEGATIVE (NEGATIVE)
[2022-02-20] MEDS ORDERED: KETOROLAC 30 MG/ML VIAL IVP STA (18:21)
[2022-02-20] MEDS ORDERED: ORPHENADRINE 60 MG/2 ML (NORFLEX) AMP (ED ONLY) IVP STA (18:21)
[2022-02-20] MEDS ORDERED: NS IV 1000 ML 1,000 ML IV STA (18:21)
[2022-02-20 18:24] LABS: BACTERIA,URINE TRACE /HPF; RBC,URINE RARE /HPF; WBC,URINE 0-2 /HPF
--- NOTE | 2022-02-20 18:30 | ED General ---
General Chief Complaint: General Problems/Pain Stated Complaint: L SIDE NECK PAIN,PAINFUL URINATION Nursing Triage Note: ARRIVED VIA AMB WITH COMPLAINTS OF LEFT SIDED NECK PAIN AND LOWER LEFT BACK PAIN X2 DAYS. PT THINKS SHE MIGHT HAVE A UTI OR SHINGLES STARTING. Source of Information: Patient History of Present Illness Date Seen by Provider: February 20, 2022 Time Seen by Provider: 18:08 Initial Comments 61-year-old female presenting with complaints of left flank pain and left sided neck pain. She thinks that she may have shingles starting in her back again because she has had something similar in the past. She also was having pain and burning with urination along with itching. She has some red bumps in her groin area that she was concerned might be something starting up as well. She had a diagnosis of chlamydia a few months ago and although she took the antibiotics prescribed to her she was unsure if that might be causing her symptoms now as well. She had been having symptoms for the last several days and not having any improvement at home. She has not tried to get in with her primary care provider or urgent care. She came to the emergency department tonight because she felt like she needed a shot for pain. Timing/Duration: 2-3 Days Severity: Severe Modifying Factors: worse with Movement Associated Systoms: No Chest Pain, No Cough, No Diaphoresis, No Fever/Chills, No Headaches, No Loss of Appetite, No Malaise, No Nausea/Vomiting, No Rash, No Seizure, No Shortness of Air, No Syncope, No Weakness Allergies and Home Medications Allergies Coded Allergies: codeine (Verified Allergy, Severe, RASH, 01/26/19) Patient Home Medication List Home Medication List Reviewed: Yes Acyclovir (Acyclovir) 400 Mg Tablet, (Reported) Entered as Reported by: MANDO RENTERIA on 01/25/19 1729 Atenolol (Atenolol) 25 Mg Tablet, (Reported) Entered as Reported by: MANDO RENTERIA on 01/25/19 1729 Baclofen (Baclofen) 10 Mg Tablet, 10 MG PO TID PRN for MUSCLE SPASMS Prescribed by: RACHEL COLES on 03/02/21 0123 Butalb/Acetaminophen/Caffeine (Esgic 50-325-40 mg Tablet) 1 Each Tablet, 1 EACH PO Q6H PRN for HEADACHE Prescribed by: ASHLEY TALAVERA on 03/09/19 1730 Cyclobenzaprine HCl (Cyclobenzaprine HCl) 10 Mg Tablet, 10 MG PO TID PRN for BACK PAIN Prescribed by: ELIGIO NOLEN on 01/25/19 1832 Cyclobenzaprine HCl (Cyclobenzaprine HCl) 10 Mg Tablet, 10 MG PO Q8H PRN for SPASMS Prescribed by: KATHE RED on 09/21/20 0935 Cyclobenzaprine HCl (Cyclobenzaprine HCl) 10 Mg Tablet, 10 MG PO Q8H PRN for SPASMS Prescribed by: WADE MANCILLA on 06/26/21 1228 Diclofenac Sodium (Diclofenac Sodium) 75 Mg Tablet.dr, 75 MG PO BID Prescribed by: MELISSA VALDEZ on 12/12/19 1440 Diclofenac Sodium (Diclofenac Sodium) 75 Mg Tablet.dr, 75 MG PO BID Prescribed by: MELISSA VALDEZ on 02/04/20 2147 Diphenhydramine HCl (Allergy) 25 Mg Capsule, 25 MG PO Q6H PRN for ITCHING Prescribed by: RACHEL COLES on 03/02/21 0123 Duloxetine HCl (Duloxetine HCl) 30 Mg Capsule.dr, (Reported) Entered as Reported by: MANDO RENTERIA on 01/25/19 1729 Estrogens, Conjugated (Premarin) 0.3 Mg Tablet, (Reported) Entered as Reported by: MANDO RENTERIA on 01/25/19 172 Gabapentin (Gabapentin) 300 Mg Capsule, 300 MG PO BID PRN for PAIN-MODERATE TO SEVERE Prescribed by: ROMAIN ZARCO on 03/09/192001 Gabapentin (Gabapentin) 100 Mg Capsule, 100 MG PO Q8H Prescribed by: WADE MANCILLA on 06/26/21 1228 Hydrocodone/Acetaminophen (Hydrocodone/Acetaminophen 5 MG/325 MG TAB) 1 Each Tablet, 1 TAB PO Q4-6HR PRN for BACK PAIN Prescribed by: ELIGIO NOLEN on 01/25/19 1832 Hydrocodone/Acetaminophen (Hydrocodone-Acetamin 5-325 mg) 1 Each Tablet, 1 EACH PO Q6H PRN for PAIN-SEVERE (8-10) Prescribed by: JANE ANDREWS on 08/01/20 1619 Hydrocodone/Acetaminophen (Hydrocodone-Acetamin 10-325 mg) 1 Each Tablet, 1 EACH PO Q6H PRN for PAIN-SEVERE (8-10) Prescribed by: RACHEL COLES on 03/02/21 0124 Hydrocodone/Acetaminophen (Hydrocodone-Acetamin 5-325 mg) 5 Mg-325 Mg Tablet, 1 TAB PO HS PRN for PAIN-SEVERE (8-10) Prescribed by: RACHEL COLES on 02/20/22 193 Lidocaine (Lidocaine 5% Patch) 1 Each Adh..patch, 1 EACH TP Q12H PRN for Neuro pathic pain Prescribed by: WADE MANCILLA on 06/26/21 1228 Pantoprazole Sodium (Pantoprazole Sodium) 40 Mg Tablet., (Reported) Entered as Reported by: MANDO RENTERIA on 01/25/19 1729 Prednisone (Prednisone) 50 Mg Tab, 50 MG PO DAILY Prescribed by: KATHE RED on 09/21/20 0935 Valacyclovir HCl (Valacyclovir) 1,000 Mg Tablet, 1,000 MG PO TID Prescribed by: RACHEL COLES on 02/20/221938 Review of Systems Review of Systems Constitutional: No chills, No fever EENTM: no symptoms reported Respiratory: no symptoms reported Cardiovascular: no symptoms reported Gastrointestinal: no symptoms reported Genitourinary: see HPI Musculoskeletal: back pain (left flank and CVA area tender to palpation. ), neck pain (left side of neck pain) Skin: lesions (red bump areas in the hairline of her groin); No rash Psychiatric/Neurological: Anxiety Hematologic/Lymphatic: Denies Blood Clots, Denies Easy Bleeding, Denies Easy Bruising Past Qstitio-Szpara-Usmxdo Hx Patient Social History Tobacco Use?: No Substance use?: No Alcohol Use?: No Seasonal Allergies Seasonal Allergies: No Past Medical History Surgery/Hospitalization HX: Hx of Shingles, Hypertension, Kidney stones Surgeries: Yes (LITHOTRIPSY) Bowel Surgery, Gallbladder, Hysterectomy Respiratory: No Cardiac: Yes Hypertension Neurological: No Genitourinary: Yes Kidney Stones Gastrointestinal: Yes Gastroesophageal Reflux Musculoskeletal: No Endocrine: No HEENT: No Cancer: No Psychosocial: Yes Anxiety, Depression Integumentary: No Recent Skin Changes Blood Disorders: No Physical Exam Vital Signs Vital Signs - First Documented 02/20/22 18:10 Temp 36.4 Pulse 92 Resp 16 B/P (MAP) 138/61 (86) Pulse Ox 97 O2 Delivery Room Air Capillary Refill : Less Than 3 Seconds Height, Weight, BMI Height: 4'11.00" Weight: 150lbs. oz. 68.433794xf; 30.00 BMI Method:Stated General Appearance: Anxious HEENT: PERRL/EOMI, Pharynx Normal Neck: Full Range of Motion, Supple, Tender Lateral (left side of neck tender to palpation over the sternocleidomastoid muscle) Respiratory: Chest Non Tender, Lungs Clear, Normal Breath Sounds, No Accessory Muscle Use, No Respiratory Distress Cardiovascular: Regular Rate, Rhythm, Normal Peripheral Pulses Gastrointestinal: Normal Bowel Sounds, No Pulsatile Mass, Non Tender, Soft Rectal: Deferred Back: No Vertebral Tenderness, CVA Tenderness (L), Other (left flank pain) Extremity: Normal Capillary Refill, Normal Inspection, No Pedal Edema Neurologic/Psychiatric: Alert, Oriented x3, 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 II-XII Norm as Tested Skin: Normal Color, Warm/Dry; No Rash Progress/Results/Core Measures Suspected Sepsis SIRS Temperature: Pulse: 92 Respiratory Rate: 16 Laboratory Tests 02/20/22 18:29: White Blood Count 8.8 Blood Pressure 138 /61 Mean: 86 Laboratory Tests 02/20/22 18:29: Creatinine 0.86, Platelet Count 271, Total Bilirubin 0.4 Results/Orders Lab Results Laboratory Tests Test 02/20/22 18:10 02/20/22 18:29 02/20/22 19:25 Range/Units Urine Color YELLOW Urine Clarity CLOUDY Urine pH 6.0 5-9 Urine Specific [place] 1.025 H 1.016-1.022 Urine Protein NEGATIVE NEGATIVE Urine Glucose (UA) NEGATIVE NEGATIVE Urine Ketones NEGATIVE NEGATIVE Urine Nitrite NEGATIVE NEGATIVE Urine Bilirubin NEGATIVE NEGATIVE Urine Urobilinogen 0.2 < = 1.0 MG/DL Urine Leukocyte Esterase TRACE H NEGATIVE Urine RBC (Auto) NEGATIVE NEGATIVE Urine RBC RARE /HPF Urine WBC 0-2 /HPF Urine Squamous Epithelial Cells 2-5 /HPF Urine Crystals NONE /LPF Urine Bacteria TRACE /HPF Urine Casts NONE /LPF Urine Mucus NEGATIVE /LPF Urine Culture Indicated NO White Blood Count 8.8 4.3-11.0 10^3/uL Red Blood Count 5.05 3.80-5.11 10^6/uL Hemoglobin 15.2 11.5-16.0 g/dL Hematocrit 46 35-52 % Mean Corpuscular Volume 90 80-99 fL Mean Corpuscular Hemoglobin 30 25-34 pg Mean Corpuscular Hemoglobin Concent 33 32-36 g/dL Red Cell Distribution Width 13.2 10.0-14.5 % Platelet Count 271 130-400 10^3/uL Mean Platelet Volume 11.1 9.0-12.2 fL Immature Granulocyte % (Auto) 0 % Neutrophils (%) (Auto) 50 42-75 % Lymphocytes (%) (Auto) 42 12-44 % Monocytes (%) (Auto) 6 0-12 % Eosinophils (%) (Auto) 2 0-10 % Basophils (%) (Auto) 1 0-10 % Neutrophils # (Auto) 4.3 1.8-7.8 10^3/uL Lymphocytes # (Auto) 3.7 1.0-4.0 10^3/uL Monocytes # (Auto) 0.5 0.0-1.0 10^3/uL Eosinophils # (Auto) 0.1 0.0-0.3 10^3/uL Basophils # (Auto) 0.1 0.0-0.1 10^3/uL Immature Granulocyte # (Auto) 0.0 0.0-0.1 10^3/uL Sodium Level 142 135-145 MMOL/L Potassium Level 3.6 3.6-5.0 MMOL/L Chloride Level 106 98-107 MMOL/L Carbon Dioxide Level 26 21-32 MMOL/L Anion Gap 10 5-14 MMOL/L Blood Urea Nitrogen 6 L 7-18 MG/DL Creatinine 0.86 0.60-1.30 MG/DL Estimat Glomerular Filtration Rate 76 BUN/Creatinine Ratio 7 Glucose Level 133 H 70-105 MG/DL Calcium Level 8.3 L 8.5-10.1 MG/DL Corrected Calcium 8.7 8.5-10.1 MG/DL Total Bilirubin 0.4 0.1-1.0 MG/DL Aspartate Amino Transf (AST/SGOT) 48 H 5-34 U/L Alanine Aminotransferase (ALT/SGPT) 52 0-55 U/L Alkaline Phosphatase 107 40-136 U/L Total Protein 5.7 L 6.4-8.2 GM/DL Albumin 3.5 3.2-4.5 GM/DL Lipase 14 8-78 U/L My Orders Orders - ENYART,RACHEL E MD Ua Culture If Indicated (02/20/22 18:08) Neis Tim Dna Urine Test (02/20/22 18:21) Chlamydia Trachomatis Urine (02/20/22 18:21) Ct Cervical Spine Wo (02/20/22 18:21) Ct Abdomen/Pelvis Wo (02/20/22 18:21) Comprehensive Metabolic Panel (02/20/22 18:21) Lipase (02/20/22 18:21) Ed Iv/Invasive Line Start (02/20/22 18:21) Cbc With Automated Diff (02/20/22 18:21) Ns Iv 1000 Ml (Sodium Chloride 0.9%) (02/20/22 18:21) Ketorolac Injection (Toradol Injection) (02/20/22 18:21) Orphenadrine Inj (Ed Only) (Norflex Inje (02/20/22 18:21) Morphine Injection (Morphine Injection (02/20/22 19:25) Diphenhydramine Injection (Benadryl Inje (02/20/22 19:25) Rx-Hydrocodone/Apap 5-325 Mg (Rx-Vicodin (02/20/22 19:30) Medications Given in ED Current Medications Medications Dose Ordered Sig/Kim Route Start Time Stop Time Status Last Admin Dose Admin Acetaminophen/ Hydrocodone Bitart 1 ea Q6H PRN PO 02/20/22 19:30 02/20/22 19:47 DC 02/20/22 19:31 1 EA Vital Signs/I&O 02/20/22 18:10 Temp 36.4 Pulse 92 Resp 16 B/P (MAP) 138/61 (86) Pulse Ox 97 O2 Delivery Room Air Capillary Refill : Less Than 3 Seconds Blood Pressure Mean: 86 Progress Note #1: Progress Note Obtain urinalysis and blood work. CT scan to evaluate for possible kidney stone in her left flank. CT of her cervical spine to evaluate for possible issue in her neck to be causing neck strain. From a pain standpoint try Norflex for muscle spasm, Toradol for pain and inflammation, Normal saline 1 L IVF bolus for hydration. Pt concerned for chlamydia so will check off of her urine. Progress Note #2: Progress Note Here and had slight elevation of specific gravity of 1.025. Her CBC and chemistry did not have any acute significant abnormality to account for her pain and symptoms. CT scan of her cervical spine showed some arthritic changes along the C2-C5 on the left side to cause irritation to the nerves and could contribute to her muscle spasm and neck pain. The CT scan of her abdomen and pelvis did not show any acute abnormality in the left flank to account for her pain. She had a stone in the right kidney but nothing in the ureter. On visual exam of her groin she had a cluster of vesicles and pustules in her pubic hair. They were tender to palpation. Will place patient on antiviral medicine to try and help for possible shingles and possible herpes outbreak as well as try a narcotic pain medicine. Patient requested something stronger than the Toradol and Norflex since she felt like they did not help. She states that she does better with morphine and fentanyl. At home she does tolerate hydrocodone but has to take some Benadryl for itching. Will prescribe anti-viral and Hydr ocodone/acetaminophen for home. Counseled to check back with pcp Diagnostic Imaging Diagonstic Imaging: CT Plain Films/CT/US/NM/MRI: c-spine Comments [facility] [place], [place] NAME: DUSTY RENAE [facility] REC#: [id number] PT STATUS: REG ER : 1960 PHYSICIAN: RACHEL COLES MD ADMIT DATE: 02/20/22/ER FS Signed Date of Exam:02/20/22 CT CERVICAL SPINE WO PROCEDURE: CT cervical spine without contrast. TECHNIQUE: Multiple contiguous axial images were obtained through the cervical spine without the use of intravenous contrast. Sagittal and coronal reformations were then performed. Auto Exposure Controls were utilized during the CT exam to meet ALARA standards for radiation dose reduction. INDICATION: Left-sided neck pain. COMPARISON: None available. FINDINGS: No acute fracture or traumatic malalignment in the cervical spine. There is an approximately 2 mm of anterolisthesis of C3 on C4 due to facet osteoarthritis. Multilevel facet osteoarthritis is present in the left upper cervical spine at C2-C3 through C4-C5. No high-grade spinal canal stenosis. No retropharyngeal fluid collection. Paravertebral musculature is normal in bulk. The lung apices are clear. No cervical lymphadenopathy. IMPRESSION: 1. No acute fracture or traumatic malalignment in the cervical spine. 2. 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 Dictated by: Dictated on workstation # [id number] Dict: 02/20/221853 Trans: 02/20/221908 [facility] [id number] Interpreted by: CARMINA ANGEL MD Electronically signed by: CARMINA ANGEL MD 02/20/221908 Reviewed: Reviewed by Mo Diagonstic Imaging: CT Plain Films/CT/US/NM/MRI: abdomen, pelvis Comments [facility] [place], [place] NAME: DUSTY RENAE [facility] REC#: [id number] PT STATUS: REG ER : 1960 PHYSICIAN: RACHEL COLES MD ADMIT DATE: 02/20/22/ER FS Signed Date of Exam:02/20/22 CT ABDOMEN/PELVIS WO PROCEDURE: CT abdomen and pelvis without contrast. TECHNIQUE: Multiple contiguous axial images were obtained through the abdomen and pelvis without the use of intravenous contrast. Auto Exposure Controls were utilized during the CT exam to meet ALARA standards for radiation dose reduction. INDICATION: Left flank pain. CORRELATION is made with prior CT from 03/02/2021. FINDINGS: The lung bases are clear. Liver is unremarkable. Gallbladder is surgically absent. There is no biliary ductal dilatation. Pancreas and spleen are unremarkable. No adrenal mass is detected. There is an approximately 3 mm nonobstructing calculus in the right kidney. No left-sided renal calculi are detected. No ureteral calculi or hydronephrosis is detected. Aorta is calcified but nonaneurysmal. Bowel loops are nonobstructed. There is no free fluid or fluid collection identified. No inflammatory changes are seen. Bladder is decompressed. IMPRESSION: 1. Nonobstructing right renal calculus. No definite ureteral calculi or hydronephrosis is seen. 2. No acute feature in the abdomen or pelvis is identified. Dictated by: Dictated on workstation # [id number] Dict: 02/20/221857 Trans: 02/20/221909 [facility] [phone] Interpreted by: SALMA KNIGHT MD Electronically signed by: SALMA KNIGHT MD 02/20/220 Reviewed: Reviewed by Me Departure Impression Primary Impression: Left flank pain Additional Impressions: Neck pain on left side Neck muscle strain Qualified Codes: S16.1XXA - Strain of muscle, fascia and tendon at neck level, initial encounter Dysuria Herpetic lesions Neuropathy due to herpes zoster Disposition: HOME, SELF-CARE Condition: Stable Departure-Patient Inst. Decision time for Depature: 19:33 Referrals: BRIANA PERERA APRN (PCP) Primary Care Physician [facility] (Family) Primary Care Physician Patient Instructions: Flank Pain ED, Genital Herpes (DC), Muscle Strain ED, Neck Pain ED, Shingles (DC) Add. Discharge Instructions: Stay well-hydrated and get plenty of rest. Try the hydrocodone for severe pain and to help you rest. You could continue with the ibuprofen and plain acetaminophen during the day. Take the antiviral medicine to help for possible shingles and herpetic lesions causing your pain. Check back with the clinic for continued concerns. Your urine test to look for chlamydia and gonorrhea will take a few days and when the test does come back if it is positive you will get a call. All discharge instructions reviewed with patient and/or family. Voiced understanding. Scripts Valacyclovir HCl (Valacyclovir) 1,000 Mg Tablet 1000 MG PO TID for Herpes/Shingles for 7 Days, #21 TAB 0 Refills Prov: RACHEL COLES MD 02/20/22 Hydrocodone/Acetaminophen (Hydrocodone-Acetamin 5-325 mg) 5 Mg-325 Mg Tablet 1 TAB PO HS PRN for PAIN-SEVERE (8-10) for 5 Days, #5 TAB 0 Refills Prov: RACHEL COLES MD 02/20/22 RACHEL COLES MD February 20, 2022 18:30
[2022-02-20 18:34] LABS: BASOPHILS # (AUTO) 0.1 10^3/uL (0.0-0.1); BASOPHILS % (AUTO) 1 % (0-10); EOSINOPHILS # (AUTO) 0.1 10^3/uL (0.0-0.3); EOSINOPHILS % (AUTO) 2 % (0-10); HEMATOCRIT 46 % (35-52); HEMOGLOBIN 15.2 g/dL (11.5-16.0); LYMPHOCYTES # (AUTO) 3.7 10^3/uL (1.0-4.0); LYMPHOCYTES % (AUTO) 42 % (12-44); MEAN CORPUSCULAR HEMOGLOBIN 30 pg (25-34); MEAN CORPUSCULAR HGB CONC 33 g/dL (32-36); MEAN CORPUSCULAR VOLUME 90 fL (80-99); MEAN PLATELET VOLUME 11.1 fL (9.0-12.2); MONOCYTES # (AUTO) 0.5 10^3/uL (0.0-1.0); MONOCYTES % (AUTO) 6 % (0-12); NEUTROPHILS # (AUTO) 4.3 10^3/uL (1.8-7.8); NEUTROPHILS % (AUTO) 50 % (42-75); PLATELET COUNT 271 10^3/uL (130-400); WHITE BLOOD COUNT 8.8 10^3/uL (4.3-11.0)
[2022-02-20 18:56] LABS: POTASSIUM 3.6 MMOL/L (3.6-5.0)
[2022-02-20 18:57] LABS: ALBUMIN 3.5 GM/DL (3.2-4.5); BILIRUBIN,TOTAL 0.4 MG/DL (0.1-1.0); CALCIUM 8.3 MG/DL (8.5-10.1); CREATININE SERUM 0.86 MG/DL (0.60-1.30); TOTAL PROTEIN 5.7 GM/DL (6.4-8.2)
--- NOTE | 2022-02-20 19:06 | Diagnostic Imaging Report ---
PROCEDURE: CT cervical spine without contrast. TECHNIQUE: Multiple contiguous axial images were obtained through the cervical spine without the use of intravenous contrast. Sagittal and coronal reformations were then performed. Auto Exposure Controls were utilized during the CT exam to meet ALARA standards for radiation dose reduction. INDICATION: Left-sided neck pain. COMPARISON: None available. FINDINGS: No acute fracture or traumatic malalignment in the cervical spine. There is an approximately 2 mm of anterolisthesis of C3 on C4 due to facet osteoarthritis. Multilevel facet osteoarthritis is present in the left upper cervical spine at C2-C3 through C4-C5. No high-grade spinal canal stenosis. No retropharyngeal fluid collection. Paravertebral musculature is normal in bulk. The lung apices are clear. No cervical lymphadenopathy. IMPRESSION: 1. No acute fracture or traumatic malalignment in the cervical spine. 2. 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 Dictated by: Dictated on workstation # [id number]
--- NOTE | 2022-02-20 19:07 | Diagnostic Imaging Report ---
PROCEDURE: CT abdomen and pelvis without contrast. TECHNIQUE: Multiple contiguous axial images were obtained through the abdomen and pelvis without the use of intravenous contrast. Auto Exposure Controls were utilized during the CT exam to meet ALARA standards for radiation dose reduction. INDICATION: Left flank pain. CORRELATION is made with prior CT from 03/02/2021. FINDINGS: The lung bases are clear. Liver is unremarkable. Gallbladder is surgically absent. There is no biliary ductal dilatation. Pancreas and spleen are unremarkable. No adrenal mass is detected. There is an approximately 3 mm nonobstructing calculus in the right kidney. No left-sided renal calculi are detected. No ureteral calculi or hydronephrosis is detected. Aorta is calcified but nonaneurysmal. Bowel loops are nonobstructed. There is no free fluid or fluid collection identified. No inflammatory changes are seen. Bladder is decompressed. IMPRESSION: 1. Nonobstructing right renal calculus. No definite ureteral calculi or hydronephrosis is seen. 2. No acute feature in the abdomen or pelvis is identified. Dictated by: Dictated on workstation # [id number]
[2022-02-20] MEDS ORDERED: diphenhydrAMINE 50 MG/ML INJ (BENADRYL) IVP STA (19:25)
[2022-02-20] MEDS ORDERED: morphine INJ 10 MG/ML 1ML (SYR OR VIAL) IVP STA (19:25)
[2022-02-20] MEDS ORDERED: ACHD5005 PO (19:39)
[2022-02-20] MEDS ORDERED: VALA10007 PO (19:39)
== END 2022-02-20 19:46 | disposition home or self-care (01) ==
LOC: EDUNIT# 18:05 → ER FS 18:06
DX: S16.1XXA Strain of muscle, fascia and tendon at neck level, initial encounter (principal); B02.23 Postherpetic polyneuropathy; R30.0 Dysuria; Z87.442 Personal history of urinary calculi; Z90.710 Acquired absence of both cervix and uterus; X58.XXXA Exposure to other specified factors, initial encounter
CPT/HCPCS: 36415; 72125; 74176; 80053; 81000; 83690; 85025; 87491; 87591; 99281

== ENCOUNTER 2022-03-13 14:47 | Emergency (ER) | payer MEDICAID ==
[~2022-03-13] VITALS: Ht 149 cm; Wt 65.0 kg
[~2022-03-13 14:47] MED LIST changes: +VALA10007 PO
[2022-03-13 14:54] VITALS: BP_SYST 144
--- NOTE | 2022-03-13 15:28 | ED General ---
General Chief Complaint: General Problems/Pain Stated Complaint: HEADACHE, VOMITING, COUGH Nursing Triage Note: Pt c/o migraine since 0200. Pt also c/o vomiting and cough. Pt requesting to have "knots" on R arm looked at because they itch. Source of Information: Patient Exam Limitations: No Limitations History of Present Illness Date Seen by Provider: Mar 13, 2022 Time Seen by Provider: 15:10 Initial Comments Patient is a 61-year-old female with history of migraines who presents with cute onset migraine starting several hours prior to ED arrival. Headache is de scribed as dull throbbing aching and is located over retro-orbital region and right cheek. Pain is rated mild to moderate is associated with nausea and vomiting. Patient also reports cough nasal congestion rhinorrhea. No fever chills sweats, neck pain stiffness or rash. This is not the worst headache of the patient's life. Patient took ibuprofen prior to ED arrival without imp rovement. No other acute symptoms or complaints. Timing/Duration: 12 Hours, 1 Day Modifying Factors: improves with Other Allergies and Home Medications Allergies Coded Allergies: codeine (Verified Allergy, Severe, RASH, 01/26/19) Patient Home Medication List Home Medication List Reviewed: Yes Acyclovir (Acyclovir) 400 Mg Tablet, (Reported) Entered as Reported by: MANDO RENTERIA on 01/25/19 1729 Atenolol (Atenolol) 25 Mg Tablet, (Reported) Entered as Reported by: MANDO RENTERIA on 01/25/19 1729 Baclofen (Baclofen) 10 Mg Tablet, 10 MG PO TID PRN for MUSCLE SPASMS Prescribed by: RACHEL COLES on 03/02/21 0123 Butalb/Acetaminophen/Caffeine (Esgic 50-325-40 mg Tablet) 1 Each Tablet, 1 EACH PO Q6H PRN for HEADACHE Prescribed by: ASHLEY TALAVERA on 03/09/19 1730 Cyclobenzaprine HCl (Cyclobenzaprine HCl) 10 Mg Tablet, 10 MG PO TID PRN for BACK PAIN Prescribed by: ELIGIO NOLEN on 01/25/19 1832 Cyclobenzaprine HCl (Cyclobenzaprine HCl) 10 Mg Tablet, 10 MG PO Q8H PRN for SPASMS Prescribed by: KATHE RED on 09/21/20 0935 Cyclobenzaprine HCl (Cyclobenzaprine HCl) 10 Mg Tablet, 10 MG PO Q8H PRN for SPASMS Prescribed by: WADE MANCILLA on 06/26/21 1228 Diclofenac Sodium (Diclofenac Sodium) 75 Mg Tablet., 75 MG PO BID Prescribed by: MELISSA VALDEZ on 12/12/19 1440 Diclofenac Sodium (Diclofenac Sodium) 75 Mg Tablet., 75 MG PO BID Prescribed by: MELISSA VALDEZ on 02/04/20 2147 Diphenhydramine HCl (Allergy) 25 Mg Capsule, 25 MG PO Q6H PRN for ITCHING Prescribed by: RACHEL COLES on 03/02/21 0123 Duloxetine HCl (Duloxetine HCl) 30 Mg Capsule., (Reported) Entered as Reported by: MANDO RENTERIA on 01/25/19 1729 Estrogens, Conjugated (Premarin) 0.3 Mg Tablet, (Reported) Entered as Reported by: MANDO RENTERIA on 01/25/19 1729 Gabapentin (Gabapentin) 300 Mg Capsule, 300 MG PO BID PRN for PAIN-MODERATE TO SEVERE Prescribed by: ROMAIN ZARCO on 03/09/192001 Gabapentin (Gabapentin) 100 Mg Capsule, 100 MG PO Q8H Prescribed by: WADE MANCILLA on 06/26/21 1228 Hydrocodone/Acetaminophen (Hydrocodone/Acetaminophen 5 MG/325 MG TAB) 1 Each Tablet, 1 TAB PO Q4-6HR PRN for BACK PAIN Prescribed by: ELIGIO NOLEN on 01/25/19 1832 Hydrocodone/Acetaminophen (Hydrocodone-Acetamin 5-325 mg) 1 Each Tablet, 1 EACH PO Q6H PRN for PAIN-SEVERE (8-10) Prescribed by: JANE ANDREWS on 08/01/20 1619 Hydrocodone/Acetaminophen (Hydrocodone-Acetamin 10-325 mg) 1 Each Tablet, 1 EACH PO Q6H PRN for PAIN-SEVERE (8-10) Prescribed by: RACHEL COLES on 03/02/21 0124 Hydrocodone/Acetaminophen (Hydrocodone-Acetamin 5-325 mg) 5 Mg-325 Mg Tablet, 1 TAB PO HS PRN for PAIN-SEVERE (8-10) Prescribed by: RACHEL COLES on 02/20/22 1939 Lidocaine (Lidocaine 5% Patch) 1 Each Adh..patch, 1 EACH TP Q12H PRN for Neuropathic pain Prescribed by: WADE MANCILLA on 06/26/21 1228 Pantoprazole Sodium (Pantoprazole Sodium) 40 Mg Tablet., (Reported) Entered as Reported by: MANDO RENTERIA on 01/25/19 1729 Prednisone (Prednisone) 50 Mg Tab, 50 MG PO DAILY Prescribed by: KATHE RED on 09/21/20 0935 Valacyclovir HCl (Valacyclovir) 1,000 Mg Tablet, 1,000 MG PO TID Prescribed by: RACHEL COLES on 02/20/22 1939 Review of Systems Review of Systems Constitutional: see HPI EENTM: see HPI Respiratory: see HPI Cardiovascular: see HPI Gastrointestinal: see HPI Genitourinary: see HPI Musculoskeletal: see HPI Skin: see HPI Psychiatric/Neurological: See HPI Hematologic/Lymphatic: See HPI Immunological/Allergic: see HPI All Other Systems Reviewed Negative Unless Noted: Yes Past Cgpuvrw-Ozulmh-Pvcueh Hx Patient Social History Tobacco Use?: No Substance use?: No Alcohol Use?: No Seasonal Allergies Seasonal Allergies: No Past Medical History Surgery/Hospitalization HX: Hx of Shingles, Hypertension, Kidney stones Surgeries: Yes (LITHOTRIPSY) Bowel Surgery, Gallbladder, Hysterectomy Respiratory: No Cardiac: Yes Hypertension Neurological: No Genitourinary: Yes Kidney Stones Gastrointestinal: Yes Gastroesophageal Reflux Musculoskeletal: No Endocrine: No HEENT: No Cancer: No Psychosocial: Yes Anxiety, Depression Integumentary: No Recent Skin Changes Blood Disorders: No Physical Exam Vital Signs Vital Signs - First Documented 03/13/22 14:54 Temp 36.2 Pulse 72 Resp 14 B/P (MAP) 144/72 (96) O2 Delivery Room Air Capillary Refill : Less Than 3 Seconds Height, Weight, BMI Height: 4'11.00" Weight: 150lbs. oz. 68.072324ut; 29.00 BMI Method:Stated General Appearance: No Apparent Distress, WD/WN, Anxious Eyes: Bilateral Eye Normal Inspection, Bilateral Eye PERRL, Bilateral Eye EOMI HEENT: PERRL/EOMI, Normal ENT Inspection, Pharynx Normal Neck: Non Tender Respiratory: Lungs Clear, Normal Breath Sounds Neurologic/Psychiatric: Alert, Oriented x3, No Motor/Sensory Deficits, Normal Mood/Affect, tube depatcher II-XII Norm as Tested Focused Exam Sepsis Stage: Ruled Out Progress/Results/Core Measures Suspected Sepsis SIRS Temperature: Pulse: 72 Respiratory Rate: 14 Blood Pressure 144 /72 Mean: 96 Results/Orders Lab Results Laboratory Tests Test 03/13/22 15:45 Range/Units My Orders Orders - CHERELLE GRAHAM DO Diphenhydramine Injection (Benadryl Inje (03/13/22 15:30) Metoclopramide Injection (Reglan Injecti (03/13/22 15:30) Prochlorperazine Injection (Compazine In (03/13/22 15:30) Ns Iv 1000 Ml (Sodium Chloride 0.9%) (03/13/22 15:30) Covid 19 Inhouse Test (03/13/22 15:28) Influenza A And B By Pcr (03/13/22 15:28) Isolation Central Supply Req (03/13/22 15:28) Ed Iv/Invasive Line Start (03/13/22 15:38) Ketorolac Injection (Toradol Injection) (03/13/22 16:45) Medications Given in ED Current Medications Medications Dose Ordered Sig/Kim Route Start Time Stop Time Status Last Admin Dose Admin Diphenhydramine HCl 50 mg ONCE ONCE IVP 03/13/22 15:30 03/13/22 15:31 DC 03/13/22 15:54 50 MG Metoclopramide HCl 10 mg ONCE ONCE IVP 03/13/22 15:30 03/13/22 15:31 DC 03/13/22 15:55 10 MG Prochlorperazine Edisylate 10 mg ONCE ONCE IV 03/13/22 15:30 03/13/22 15:31 DC 03/13/22 15:56 10 MG Vital Signs/I&O 03/13/22 14:54 Temp 36.2 Pulse 72 Resp 14 B/P (MAP) 144/72 (96) O2 Delivery Room Air Capillary Refill : Less Than 3 Seconds Blood Pressure Mean: 96 Departure Communication (Admissions) Typical migraine headache without neurologic deficits. This is not the worst headache of the patient's life. Patient does have a cough nasal congestion and request COVID testing due to possible recent exposure. Patient symptoms significant improved with treatment. COVID result pending. Recommendations are supportive care watchful waiting and PCP follow-up. Return precautions reviewed. Patient verbalizes understanding agreement discharge instructions prior to departure. Impression Primary Impression: Migraine Additional Impression: Nausea & vomiting Disposition: 01 HOME, SELF-CARE Condition: Stable Departure-Patient Inst. Decision time for Depature: 16:42 Referrals: BRIANA PERERA APRN (PCP) Primary Care Physician [facility] (Family) Primary Care Physician Patient Instructions: Migraines (DC) Add. Discharge Instructions: You were evaluated in the emergency department for headache. Your symptoms are consistent with migraine syndrome. Please go home and continue home medications. Please continue to self quarantine pending your COVID results. Follow-up with your PCP in 2 to 3 days as needed. Return to the ED if new or worsening symptoms. All discharge instructions reviewed with patient and/or family. Voiced understanding. CHERELLE GRAHAM DO Mar 13, 2022 15:28
[2022-03-13] MEDS ORDERED: NS IV 1000 ML 1,000 ML IV SCH (15:30)
[2022-03-13] MEDS ORDERED: diphenhydrAMINE 50 MG/ML INJ (BENADRYL) IVP ONE (15:30)
[2022-03-13] MEDS ORDERED: METOCLOPRAMIDE INJ 10 MG/2 ML (REGLAN) IVP ONE (15:30)
[2022-03-13] MEDS ORDERED: PROCHLORPERAZINE 10 MG/2ML INJ (COMPAZINE) IV ONE (15:30)
[2022-03-13] MEDS ORDERED: KETOROLAC 30 MG/ML VIAL IVP ONE (16:45)
[2022-03-13 16:56] VITALS: BP_DIAS 72
== END 2022-03-13 16:56 | disposition home or self-care (01) ==
LOC: EDUNIT# 14:47 → ER FS 14:50
DX: G43.109 Migraine with aura, not intractable, without status migrainosus (principal); R05.1 Acute cough; R09.81 Nasal congestion; Z20.822 Contact with and (suspected) exposure to COVID-19
CPT/HCPCS: 87636

== ENCOUNTER 2022-06-10 13:37 | Emergency (ER) | payer MEDICAID ==
--- NOTE | 2022-06-10 13:42 | ED EENT ---
History of Present Illness General Chief Complaint: Ear Problems Stated Complaint: LT EAR SWELLING; DIZZINESS Source: patient History of Present Illness Date Seen by Provider: Jun 10, 2022 Time Seen by Provider: 13:41 Initial Comments 61-year-old female presenting with complaints of pressure in her left ear and pain. She had a lot of "junk" draining out of her ear last night. She is felt dizzy especially when she moves her head her gets up. She denies having fever, chills, nasal congestion, cough, headache, trauma to her ear. 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 She had drink a lot of water last night to try and help in case there is dehydration and but was still feeling dizzy and having pressure in the ear this morning so she came to the emergency department. She feels nauseated but has not actually vomited. She denies any change in her vision or sinus pressure. Timing/Duration: abrupt Severity: moderate Location: ear (L) Prearrival Treatment: no prearrival treatment Modifying Factors: Worse With Activity Associated Symptoms: No change in hearing, No cough, No drooling; ear drainage; No facial pain/swelling, No fever, No malaise, No nasal congestion/drainage, No poor fluid intake, No poor solids intake, No sinus infection, No sore throat, No tooth pain, No voice change Allergies and Home Medications Allergies Coded Allergies: codeine (Verified Allergy, Severe, RASH, 01/26/19) Patient Home Medication List Home Medication List Reviewed: Yes Acyclovir (Acyclovir) 400 Mg Tablet, (Reported) Entered as Reported by: MANDO RENTERIA on 01/25/19 1729 Amoxicillin (Amoxicillin) 875 Mg Tablet, 875 MG PO BID Prescribed by: RACHEL COELS on 06/10/22 1401 Atenolol (Atenolol) 25 Mg Tablet, (Reported) Entered as Reported by: MANDO RENTERIA on 01/25/19 1729 Baclofen (Baclofen) 10 Mg Tablet, 10 MG PO TID PRN for MUSCLE SPASMS Prescribed by: RACHEL COLES on 03/02/21 0123 Butalb/Acetaminophen/Caffeine (Esgic 50-325-40 mg Tablet) 1 Each Tablet, 1 EACH PO Q6H PRN for HEADACHE Prescribed by: ASHLEY TALAVERA on 03/09/19 1730 Cyclobenzaprine HCl (Cyclobenzaprine HCl) 10 Mg Tablet, 10 MG PO TID PRN for BACK PAIN Prescribed by: ELIGIO NOLEN on 01/25/19 1832 Cyclobenzaprine HCl (Cyclobenzaprine HCl) 10 Mg Tablet, 10 MG PO Q8H PRN for SPASMS Prescribed by: KATHE RED on 09/21/20 0935 Cyclobenzaprine HCl (Cyclobenzaprine HCl) 10 Mg Tablet, 10 MG PO Q8H PRN for SPASMS Prescribed by: WADE MANCILLA on 06/26/21 1228 Diclofenac Sodium (Diclofenac Sodium) 75 Mg Tablet.dr, 75 MG PO BID Prescribed by: MELISSA VALDEZ on 12/12/19 1440 Diclofenac Sodium (Diclofenac Sodium) 75 Mg Tablet.dr, 75 MG PO BID Prescribed by: MELISSA VALDEZ on 02/04/20 2147 Diphenhydramine HCl (Allergy) 25 Mg Capsule, 25 MG PO Q6H PRN for ITCHING Prescribed by: RACHEL COLES on 03/02/21 0123 Duloxetine HCl (Duloxetine HCl) 30 Mg Capsule., (Reported) Entered as Reported by: MANDO RENTERIA on 01/25/19 1729 Estrogens, Conjugated (Premarin) 0.3 Mg Tablet, (Reported) Entered as Reported by: MANDO RENTERIA on 01/25/19 1729 Gabapentin (Gabapentin) 300 Mg Capsule, 300 MG PO BID PRN for PAIN-MODERATE TO SEVERE Prescribed by: ROMAIN ZARCO on 03/09/192001 Gabapentin (Gabapentin) 100 Mg Capsule, 100 MG PO Q8H Prescribed by: WADE MANCILLA on 06/26/21 1228 Hydrocodone/Acetaminophen (Hydrocodone/Acetaminophen 5 MG/325 MG TAB) 1 Each Tablet, 1 TAB PO Q4-6HR PRN for BACK PAIN Prescribed by: ELIGIO NOLEN on 01/25/19 1832 Hydrocodone/Acetaminophen (Hydrocodone-Acetamin 5-325 mg) 1 Each Tablet, 1 EACH PO Q6H PRN for PAIN-SEVERE (8-10) Prescribed by: JANE ANDREWS on 08/01/20 1619 Hydrocodone/Acetaminophen (Hydrocodone-Acetamin 10-325 mg) 1 Each Tablet, 1 EACH PO Q6H PRN for PAIN-SEVERE (8-10) Prescribed by: RACHEL COLES on 03/02/21 0124 Hydrocodone/Acetaminophen (Hydrocodone-Acetamin 5-325 mg) 5 Mg-325 Mg Tablet, 1 TAB PO HS PRN for PAIN-SEVERE (8-10) Prescribed by: RACHEL COLES on 02/20/22 193 Lidocaine (Lidocaine 5% Patch) 1 Each Adh..patch, 1 EACH TP Q12H PRN for Neuropathic pain Prescribed by: WDAE MANCILLA on 06/26/21 1228 Meclizine HCl (Meclizine HCl) 25 Mg Tablet, 25 MG PO QID PRN for DIZZINESS Prescribed by: RACHEL COLES on 06/10/22 1401 Ondansetron (Ondansetron Odt) 4 Mg Tab.rapdis, 4 MG PO Q6H PRN for NAUSEA/VOMITING Prescribed by: RACHEL COLES on 06/10/22 1401 Pantoprazole Sodium (Pantoprazole Sodium) 40 Mg Tablet., (Reported) Entered as Reported by: MANDO RENTERIA on 01/25/19 1729 Prednisone (Prednisone) 50 Mg Tab, 50 MG PO DAILY Prescribed by: KATHE RED on 09/21/20 0935 Valacyclovir HCl (Valacyclovir) 1,000 Mg Tablet, 1,000 MG PO TID Prescribed by: RACHEL COLES on 02/20/22 1939 Review of Systems Review of Systems Constitutional: No chills; dizziness; No fever Eyes: No Symptoms Reported Ears: See HPI Nose: no symptoms reported Mouth: no symptoms reported Throat: no symptoms reported Respiratory: no symptoms reported Cardiovascular: no symptoms reported Gastrointestinal: see HPI Musculoskeletal: no symptoms reported Skin: no symptoms reported Neurological: Anxiety Past Ezzasnm-Ripyeh-Mpegcw Hx Seasonal Allergies Seasonal Allergies: No Past Medical History Surgery/Hospitalization HX: Hx of Shingles, Hypertension, Kidney stones Surgeries: Yes (LITHOTRIPSY) Bowel Surgery, Gallbladder, Hysterectomy Respiratory: No Cardiac: Yes Hypertension Neurological: No Genitourinary: Yes Kidney Stones Gastrointestinal: Yes Gastroesophageal Reflux Musculoskeletal: No Endocrine: No HEENT: No Cancer: No Psychosocial: Yes Anxiety, Depression Integumentary: No Recent Skin Changes Blood Disorders: No Physical Exam Vital Signs Vital Signs - First Documented 06/10/22 13:45 Temp 35.7 Pulse 84 Resp 20 B/P (MAP) 119/56 (77) Pulse Ox 99 O2 Delivery Room Air Height, Weight, BMI Height: 4'11.00" Weight: 150lbs. oz. 68.177548ht; 29.00 BMI Method:Stated General Appearance: WD/WN, mild distress Eyes: bilateral eye PERRL, bilateral eye EOMI Ears: right ear TM red; bilateral ear TM dull (Effusion behind the left TM) Mouth/Throat: normal mouth inspection Neck: non-tender, full range of motion, supple, normal inspection Cardiovascular: normal peripheral pulses, regular rate, rhythm Respiratory: chest non-tender, lungs clear, normal breath sounds Neurologic/Psychiatric: alert, oriented x 3 Skin: normal color, warm/dry Progress/Results/Core Measures Results/Orders My Orders Orders - RACHEL COLES MD Meclizine Tablet (Antivert Tablet) (06/10/22 13:52) Ondansetron Oral Dissolve Tab (Zofran (06/10/22 13:52) Amoxicillin Capsule (Polymox Capsule) (06/10/22 13:52) Vital Signs/I&O 06/10/22 13:45 Temp 35.7 Pulse 84 Resp 20 B/P (MAP) 119/56 (77) Pulse Ox 99 O2 Delivery Room Air Progress Progress Note : Progress Note Will start patient on an antibiotic for the fluid behind her eardrum. Give a dose of Zofran to help with her nausea. Meclizine to help with the dizziness. Encouraged to use a nasal steroid spray to help with the pressure and fluid in her ear. Follow-up with primary for continued concerns. Departure Impression Primary Impression: Acute otitis media with effusion of left ear Additional Impression: Dizziness Disposition: 01 HOME, SELF-CARE Condition: Stable Departure-Patient Inst. Decision time for Depature: 13:58 Referrals: BRIANA PERERA APRN (PCP) Primary Care Physician [facility] (Family) Primary Care Physician Patient Instructions: Ear Infections (Otitis Media) in Adults (DC), Dizziness, Adult ED Add. Discharge Instructions: Take the full course of antibiotics to treat for ear infection. Use the dissolving nausea tablets if needed to help settle your stomach. Use meclizine to help with dizziness. This is an antihistamine that will also help with the fluid in your ear. Use the nasal steroid spray [id number] to help with opening your sinuses and help the fluid drain from your ear. All discharge instructions reviewed with patient and/or family. Voiced understanding. Scripts Amoxicillin (Amoxicillin) 875 Mg Tablet 875 MG PO BID for Otitis Media for 10 Days, #20 TAB 0 Refills Prov: RACHEL COLES MD 06/10/22 Ondansetron (Ondansetron Odt) 4 Mg Tab.rapdis 4 MG PO Q6H PRN for NAUSEA/VOMITING for 3 Days, #12 TAB 0 Refills Prov: RACHEL COLES MD 06/10/22 Meclizine HCl (Meclizine HCl) 25 Mg Tablet 25 MG PO QID PRN for DIZZINESS for 7 Days, #28 TAB 0 Refills Prov: RACHEL COLES MD 06/10/22 RACHEL COLES MD Jun 10, 2022 13:42
[2022-06-10 13:45] VITALS: BP 119/56
[2022-06-10] MEDS ORDERED: MECLIZINE 25 MG (ANTIVERT) TAB PO STA (13:52)
[2022-06-10] MEDS ORDERED: AMOXICILLIN 500 MG (POLYMOX) CAP PO STA (13:52)
[2022-06-10] MEDS ORDERED: ONDANSETRON 4 MG (ZOFRAN) ORAL DISSOLVE TAB PO STA (13:52)
[2022-06-10] MEDS ORDERED: ONDA4TAB11 PO (14:01)
[2022-06-10] MEDS ORDERED: MECL-149 PO (14:01)
[2022-06-10] MEDS ORDERED: AMOX875T2 PO (14:01)
== END 2022-06-10 14:04 | disposition home or self-care (01) ==
LOC: EDUNIT# 13:37 → ER FS 13:38
DX: H65.192 Other acute nonsuppurative otitis media, left ear (principal)
CPT/HCPCS: 99283

== ENCOUNTER 2022-08-01 16:45 | Emergency (ER) | payer MEDICAID ==
[~2022-08-01 16:45] MED LIST changes: +AMOX875T2 PO; +MECL-149 PO; +ONDA4TAB11 PO
== END 2022-08-01 17:18 | disposition left against medical advice (07) ==
LOC: EDUNIT# 16:45 → ER FS 16:46
DX: M79.605 Pain in left leg (principal)

== ENCOUNTER 2023-06-08 13:44 | Emergency (ER) | payer MEDICAID ==
[~2023-06-08] VITALS: Ht 149.8 cm; Wt 67.1 kg
[2023-06-08] MEDS ORDERED: METHYLPREDNISOLONE ACETATE 80 MG/ML IM STA (13:59)
[2023-06-08] MEDS ORDERED: dexAMETHasone INJ 10 MG/ML 1 ML VIAL IM STA (13:59)
[2023-06-08] MEDS ORDERED: HYDROcodone/ACETAMINOPHEN 5 MG/325 MG TABLET PO STA (13:59)
[2023-06-08] MEDS ORDERED: ORPHENADRINE 60 MG/2 ML AMP (ED ONLY) IM STA (13:59)
[2023-06-08] MEDS ORDERED: diphenhydrAMINE 25 MG TABLET PO STA (13:59)
[2023-06-08 14:00] VITALS: BP 142/81
--- NOTE | 2023-06-08 14:06 | ED Lower Extremity ---
General Chief Complaint: Lower Extremity Stated Complaint: LT LEG PAIN Source: patient History of Present Illness Date Seen by Provider: Jun 08, 2023 Time Seen by Provider: 13:50 Initial Comments 62-year-old female presenting with complaints of 2 days of severe pain from her left buttock wrapping around her leg and going down to her knee. She states she has had pain like this previously and got a Toradol shot at the walk-in care that helped some. She feels like the pain has been worse in the last 2 days. She was unable to sleep last night because of the pain. She has tried ibuprofen as well as IcyHot, Bengay, alternating ice and heat. She denies any acute injury or fall. She denies any numbness or tingling or weakness. The pain seems to be positional and is worse with certain positions. Onset: other (The last 2 days) Severity: severe Pain/Injury Location: left hip Method of Injury: unknown Modifying Factors: Worse With Movement Allergies and Home Medications Allergies Coded Allergies: codeine (Verified Allergy, Severe, RASH, 01/26/19) Patient Home Medication List Home Medication List Reviewed: Yes Acyclovir (Acyclovir) 400 Mg Tablet, (Reported) Entered as Reported by: MANDO RENTERIA on 01/25/19 1729 Amoxicillin (Amoxicillin) 875 Mg Tablet, 875 MG PO BID Prescribed by: RACHEL COLES on 06/10/22 1401 Atenolol (Atenolol) 25 Mg Tablet, (Reported) Entered as Reported by: MANDO RENTERIA on 01/25/19 1729 Baclofen (Baclofen) 10 Mg Tablet, 10 MG PO TID PRN for MUSCLE SPASMS Prescribed by: RACHEL COLES on 03/02/21 0123 Butalb/Acetaminophen/Caffeine (Esgic 50-325-40 mg Tablet) 1 Each Tablet, 1 EACH PO Q6H PRN for HEADACHE Prescribed by: ASHLEY TALAVERA on 03/09/19 1730 Cyclobenzaprine HCl (Cyclobenzaprine HCl) 10 Mg Tablet, 10 MG PO TID PRN for BACK PAIN Prescribed by: ELIGIO NOLEN on 01/25/19 1832 Cyclobenzaprine HCl (Cyclobenzaprine HCl) 10 Mg Tablet, 10 MG PO Q8H PRN for SPASMS Prescribed by: KATHE RED on 09/21/20 0935 Cyclobenzaprine HCl (Cyclobenzaprine HCl) 10 Mg Tablet, 10 MG PO Q8H PRN for SPASMS Prescribed by: WADE MANCILLA on 06/26/21 1228 Diclofenac Sodium (Diclofenac Sodium) 75 Mg Tablet.dr, 75 MG PO BID Prescribed by: MELISSA VALDEZ on 12/12/19 1440 Diclofenac Sodium (Diclofenac Sodium) 75 Mg Tablet., 75 MG PO BID Prescribed by: MELISSA VALDEZ on 02/04/20 2147 Diphenhydramine HCl (Allergy) 25 Mg Capsule, 25 MG PO Q6H PRN for ITCHING Prescribed by: RACHEL COLES on 03/02/21 0123 Duloxetine HCl (Duloxetine HCl) 30 Mg Capsule., (Reported) Entered as Reported by: MANDO RENTERIA on 01/25/19 1729 Estrogens, Conjugated (Premarin) 0.3 Mg Tablet, (Reported) Entered as Reported by: MANDO RENTERIA on 01/25/19 172 Gabapentin (Gabapentin) 300 Mg Capsule, 300 MG PO BID PRN for PAIN-MODERATE TO SEVERE Prescribed by: ROMAIN ZARCO on 03/09/192001 Gabapentin (Gabapentin) 100 Mg Capsule, 100 MG PO Q8H Prescribed by: WADE MANCILLA on 06/26/21 1228 Hydrocodone/Acetaminophen (Hydrocodone/Acetaminophen 5 MG/325 MG TAB) 1 Each Tablet, 1 TAB PO Q4-6HR PRN for BACK PAIN Prescribed by: ELIGIO NOLEN on 01/25/19 1832 Hydrocodone/Acetaminophen (Hydrocodone-Acetamin 5-325 mg) 1 Each Tablet, 1 EACH PO Q6H PRN for PAIN-SEVERE (8-10) Prescribed by: JANE ANDREWS on 08/01/20 1619 Hydrocodone/Acetaminophen (Hydrocodone-Acetamin 10-325 mg) 1 Each Tablet, 1 EACH PO Q6H PRN for PAIN-SEVERE (8-10) Prescribed by: RACHEL COLES on 03/02/21 0124 Hydrocodone/Acetaminophen (Hydrocodone-Acetamin 5-325 mg) 5 Mg-325 Mg Tablet, 1 TAB PO HS PRN for PAIN-SEVERE (8-10) Prescribed by: RACHEL COLES on 5/31/22 1939 Hydrocodone/Acetaminophen (Hydrocodone-Acetamin 10-325 mg) 10 Mg-325 Mg Tablet, 1 EACH PO Q6H PRN for PAIN SEVERE Prescribed by: RACHEL COLES on 06/08/23 1450 Lidocaine (Lidocaine 5% Patch) 1 Each Adh..patch, 1 EACH TP Q12H PRN for Neuropathic pain Prescribed by: WADE MANCILLA on 06/26/21 1228 Meclizine HCl (Meclizine HCl) 25 Mg Tablet, 25 MG PO QID PRN for DIZZINESS Prescribed by: RACHEL COELS on 06/10/22 1401 Methocarbamol (Methocarbamol) 500 Mg Tablet, 1,000 MG PO Q8H PRN for MUSCLE SPASMS Prescribed by: RACHEL COLES on 06/08/23 1448 Ondansetron (Ondansetron Odt) 4 Mg Tab.rapdis, 4 MG PO Q6H PRN for NAUSEA/VOMITING Prescribed by: RACHEL COLES on 06/10/22 1401 Pantoprazole Sodium (Pantoprazole Sodium) 40 Mg Tablet., (Reported) Entered as Reported by: MANDO RENTERIA on 01/25/19 1729 Prednisone (Prednisone) 50 Mg Tab, 50 MG PO DAILY Prescribed by: KATHE RED on 09/21/20 0935 Valacyclovir HCl (Valacyclovir) 1,000 Mg Tablet, 1,000 MG PO TID Prescribed by: RACHEL COLES on 02/20/221938 Review of Systems Constitutional: No chills, No fever EENTM: no symptoms reported Respiratory: no symptoms reported Cardiovascular: no symptoms reported Gastrointestinal: no symptoms reported Genitourinary: no symptoms reported Musculoskeletal: see HPI Skin: No rash Psychiatric/Neurological: Denies Numbness, Denies Paresthesia Past Vfqqtps-Cziozo-Doglbi Hx Patient Social History Tobacco Use?: No Use of E-Cig and/or Vaping dev: No Substance use?: No Alcohol Use?: No Pt feels they are or have been: No Seasonal Allergies Seasonal Allergies: No Past Medical History Surgery/Hospitalization HX: Hx of Shingles, Hypertension, Kidney stones Surgeries: Yes (LITHOTRIPSY) Bowel Surgery, Gallbladder, Hysterectomy Respiratory: No Cardiac: Yes Hypertension Neurological: No Genitourinary: Yes Kidney Stones Gastrointestinal: Yes Gastroesophageal Reflux Musculoskeletal: No Endocrine: No HEENT: No Cancer: No Psychosocial: Yes Anxiety, Depression Integumentary: No Recent Skin Changes Blood Disorders: No Physical Exam Vital Signs Vital Signs - First Documented 06/08/23 14:00 Temp 36.9 Pulse 90 Resp 16 B/P (MAP) 142/81 (101) Pulse Ox 97 O2 Delivery Room Air Capillary Refill : Height, Weight, BMI Height: 4'11.00" Weight: 150lbs. oz. 68.482773zi; 29.00 BMI Method:Stated General Appearance: WD/WN, no apparent distress Cardiovascular: normal peripheral pulses Back: no CVA tenderness, no vertebral tenderness Hips: left hip pain (Tender to palpation over the left SI joint) Neurologic/Tendon: normal sensation, normal motor functions, normal tendon functions Neurologic/Psychiatric: alert, oriented x 3; No abnormal gait Skin: normal color, warm/dry Progress/Results/Core Measures Results/Orders My Orders Orders - RACHEL COLES MD Dexamethasone Injection (Dexamethasone (06/08/23 13:59) Methylprednisolone Acetate Inj (Methylpr (06/08/23 13:59) Orphenadrine Inj (Ed Only) (Orphenadrine (06/08/23 13:59) Hydrocodone/Apap 5/325 Tablet (Hydrocod (06/08/23 13:59) Diphenhydramine Tablet (Diphenhydramine (06/08/23 13:59) Ct Lumbar Spine Wo (06/08/23 14:00) Vital Signs/I&O 06/08/23 14:00 Temp 36.9 Pulse 90 Resp 16 B/P (MAP) 142/81 (101) Pulse Ox 97 O2 Delivery Room Air Progress Progress Note #1: Progress Note Differential diagnosis includes sciatica, lumbar radiculopathy, osteoarthritis lumbar spine, groin strain, muscle strain, muscle spasms of the lumbar spine. Administer dexamethasone 10 mg IM with Depo-Medrol 80 mg IM for pain and inflammation. Norflex 60 mg IM for muscle spasms. Hydrocodone 5/325 1 pill by mouth for severe pain along with Benadryl 25 mg p.o. for possible itching from the hydrocodone. CT scan of the lumbar spine to evaluate for acute pathology that might be contributing to her sciatica symptoms Progress Note #2: Time: 14:[address] scan shows foraminal stenosis bilaterally at L5/S1. Continue with plan for steroids and muscle relaxer. Prescribe a few pain pills for severe pain. Check with clinic for continued symptoms/problems. Diagnostic Imaging Diagonstic Imaging: CT Plain Films/CT/US/NM/MRI: other (lumbar spine) Comments NAME: D[facility] RE[facility] REC#: [id number] PT STATUS: REG ER : 1960 PHYSICIAN: RACHEL COLES MD ADMIT DATE: 06/08/23/ER FS Draft Date of Exam:06/08/23 CT LUMBAR SPINE WO PROCEDURE: CT lumbar spine without contrast. TECHNIQUE: Multiple contiguous axial images were obtained through the lumbar spine without the use of intravenous contrast. Sagittal and coronal reformations were then performed. Auto Exposure Controls were utilized during the CT exam to meet ALARA standards for radiation dose reduction. INDICATION: Left low back pain radiating down the left leg. COMPARISON: Radiographs from 12/06/2021. FINDINGS: Alignment of the lumbar spine appears normal with no spondylolisthesis. There is moderate to severe degenerative change at L5-S1 with disc height loss, endplate sclerosis, and vacuum disc phenomenon. The vertebral disc heights are otherwise preserved. Vertebral body heights are preserved and no fracture is seen. No hyperdense collections are seen in the spinal canal. Surrounding soft tissues demonstrate no acute abnormality. There appears to be moderate foraminal stenosis at L5-S1 bilaterally. IMPRESSION: Degenerative changes at L5-S1 with moderate bilateral foraminal stenosis. Dictated on workstation # [id number] Dict: 06/08/23 1421 Trans: 06/08/23 1429 [id number] Interpreted by: CHET SMITH MD Electronically signed by: Reviewed: Reviewed by Me Departure Impression Primary Impression: Left-sided low back pain with sciatica Qualified Codes: M54.42 - Lumbago with sciatica, left side Disposition: 01 HOME, SELF-CARE Condition: Stable Departure-Patient Inst. Decision time for Depature: 14:36 Referrals: BRIANA PERERA APRN (PCP) Primary Care Physician [facility] (Family) Primary Care Physician Patient Instructions: Sciatica ED, Sciatica Exercises Add. Discharge Instructions: The steroid shots from today should help with pain and inflammation. For severe pain you could use the hydrocodone. The muscle relaxer should also help with some of the pain and symptoms going down your leg. Check back with primary care provider during the week if you are having continued symptoms as you do show degenerative disc disease and arthritic changes in the spine causing some narrowing around the sciatic nerve. All discharge instructions reviewed with patient and/or family. Voiced understanding. Scripts Methocarbamol (Methocarbamol) 500 Mg Tablet 1000 MG PO Q8H PRN for MUSCLE SPASMS for 5 Days, #30 TAB 0 Refills Prov: RACHEL COLES MD 06/08/23 Hydrocodone/Acetaminophen (Hydrocodone-Acetamin 10-325 mg) 10 Mg-325 Mg Tablet 1 EACH PO Q6H PRN for PAIN SEVERE for 3 Days, #12 TAB 0 Refills Prov: RACHEL COLES MD 06/08/23 RACHEL COLES MD Jun 08, 2023 14:06
--- NOTE | 2023-06-08 14:29 | Diagnostic Imaging Report ---
PROCEDURE: CT lumbar spine without contrast. TECHNIQUE: Multiple contiguous axial images were obtained through the lumbar spine without the use of intravenous contrast. Sagittal and coronal reformations were then performed. Auto Exposure Controls were utilized during the CT exam to meet ALARA standards for radiation dose reduction. INDICATION: Left low back pain radiating down the left leg. COMPARISON: Radiographs from 12/06/2021. FINDINGS: Alignment of the lumbar spine appears normal with no spondylolisthesis. There is moderate to severe degenerative change at L5-S1 with disc height loss, endplate sclerosis, and vacuum disc phenomenon. The vertebral disc heights are otherwise preserved. Vertebral body heights are preserved and no fracture is seen. No hyperdense collections are seen in the spinal canal. Surrounding soft tissues demonstrate no acute abnormality. There appears to be moderate foraminal stenosis at L5-S1 bilaterally. IMPRESSION: Degenerative changes at L5-S1 with moderate bilateral foraminal stenosis. Dictated by: Dictated on workstation # [id number]
[2023-06-08] MEDS ORDERED: METH-731 PO (14:48)
[2023-06-08] MEDS ORDERED: HYDR-3820 PO (14:48)
== END 2023-06-08 15:08 | disposition home or self-care (01) ==
LOC: EDUNIT# 13:44 → ER FS 13:46
DX: M54.42 Lumbago with sciatica, left side (principal)
CPT/HCPCS: 72131

== ENCOUNTER 2023-08-09 04:38 | Emergency (ER) | payer MEDICAID ==
[~2023-08-09 04:38] MED LIST changes: -MECL-149 PO; +MECL-291 PO; +METH-731 PO
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
[2023-08-09 05:27] LABS: BASOPHILS # (AUTO) 0.1 10^3/uL (0.0-0.1); BASOPHILS % (AUTO) 1 % (0-10); EOSINOPHILS # (AUTO) 0.2 10^3/uL (0.0-0.3); EOSINOPHILS % (AUTO) 2 % (0-10); HEMATOCRIT 46 % (35-52); HEMOGLOBIN 15.4 g/dL (11.5-16.0); LYMPHOCYTES % (AUTO) 24 % (12-44); MEAN CORPUSCULAR HEMOGLOBIN 31 pg (25-34); MEAN CORPUSCULAR HGB CONC 33 g/dL (32-36); MEAN CORPUSCULAR VOLUME 92 fL (80-99); MEAN PLATELET VOLUME 11.5 fL (9.0-12.2); MONOCYTES # (AUTO) 0.6 10^3/uL (0.0-1.0); MONOCYTES % (AUTO) 7 % (0-12); NEUTROPHILS # (AUTO) 5.6 10^3/uL (1.8-7.8); NEUTROPHILS % (AUTO) 66 % (42-75); PLATELET COUNT 324 10^3/uL (130-400); WHITE BLOOD COUNT 8.5 10^3/uL (4.3-11.0)
[2023-08-09 05:31] LABS: BILIRUBIN,URINE NEGATIVE (NEGATIVE); CLARITY,URINE CLEAR; COLOR,URINE YELLOW; GLUCOSE, URINE (UA) NEGATIVE (NEGATIVE); KETONES,URINE NEGATIVE (NEGATIVE); LEUKOCYTE ESTERASE ,URINE NEGATIVE (NEGATIVE); NITRITE,URINE NEGATIVE (NEGATIVE); PROTEIN,URINE NEGATIVE (NEGATIVE)
[2023-08-09 05:45] LABS: BACTERIA,URINE TRACE /HPF; HYALINE CASTS, URINE RARE /LPF; RBC,URINE RARE /HPF; RENAL EPITHELIAL CELLS,URINE RARE /HPF; SQUAMOUS EPITHELIAL CELL,UR 0-2 /HPF; WBC,URINE RARE /HPF
[2023-08-09 05:47] LABS: AMPHETAMINE SCREEN, URINE NEGATIVE (NEGATIVE); BARBITURATE SCREEN URINE NEGATIVE (NEGATIVE); CANNABINOID SCREEN, URINE NEGATIVE (NEGATIVE); COCAINE SCREEN URINE NEGATIVE (NEGATIVE); METHADONE STAT NEGATIVE (NEGATIVE); OPIATE SCREEN URINE NEGATIVE (NEGATIVE); OXYCODONE STAT NEGATIVE (NEGATIVE); TRICYCLIC ANTIDEPRESSANTS SCRE NEGATIVE (NEGATIVE)
[2023-08-09 05:47] LABS: POTASSIUM 3.6 MMOL/L (3.6-5.0)
[2023-08-09 05:55] LABS: ALANINE AMINOTRANSFERASE 25 U/L (0-55); ALBUMIN 3.9 GM/DL (3.2-4.5); ALKALINE PHOSPHATASE 138 U/L (40-136); BILIRUBIN,TOTAL 0.4 MG/DL (0.1-1.0); BUN/CREATININE RATIO 18; CALCIUM 8.9 MG/DL (8.5-10.1); CARBON DIOXIDE 20 MMOL/L (21-32); CHLORIDE 108 MMOL/L (98-107); CREATININE SERUM 0.67 MG/DL (0.60-1.30); GFR ESTIMATED 98; GLUCOSE 117 MG/DL (70-105); SALICYLATE < 0.3 MG/DL (5.0-20.0); SODIUM 142 MMOL/L (135-145); TOTAL PROTEIN 7.2 GM/DL (6.4-8.2)
[2023-08-09 05:56] LABS: ACETAMINOPHEN < 10 UG/ML (10-30)
[2023-08-09] MEDS ORDERED: IBUPROFEN 600 MG TABLET PO ONE (06:45)
[2023-08-09 11:49] VITALS: BP 151/90
== END 2023-08-09 13:50 ==
LOC: EDUNIT# 04:38 → ER FS 04:39
DX: R45.851 Suicidal ideations (principal); Z86.59 Personal history of other mental and behavioral disorders
CPT/HCPCS: 36415; 80053; 80306; 80320; 80329; 81000; 85025; 87636; 93005